=== PATIENT | male | born 1945 | race Caucasian/White ===

== ENCOUNTER 2018-07-19 08:54 | Outpatient (REF) | payer MEDICARE, BC, SELFPAY ==
[2018-07-19 20:19] LABS: HCT 40.3 % (40.0-50.0); HGB 13.4 g/dL (13.5-17.5); Mean Corp. HGB Concentration 33.3 g/dL (32.0-36.0); Mean Corpuscular Volume 90.4 fL (80-95); Mean Platelet Volume 11.3 fL (8.0-11.0); Platelet Count 200 x1000/uL (130-400); RBC 4.46 m/cumm (4.50-6.00); RBC Distribution Width 12.5 % (11.8-14.1); White Blood Cell Count 8.11 k/cumm (4.4-10.8)
== END 2018-07-19 09:14 ==
LOC: NCHCN 08:54
PROVIDERS: PCP Specialist/Technologist Athletic Trainer; Visit Provider Specialist/Technologist Athletic Trainer
DX: D50.9 Iron deficiency anemia, unspecified (principal)
CPT/HCPCS: 85027

== ENCOUNTER → 2018-08-17 09:04 | Outpatient (BNVA) | payer MEDICARE, BC, SELFPAY | PROVIDERS: PCP Specialist/Technologist Athletic Trainer; Visit Provider Psychiatry & Neurology Neurology | DX: G20 Parkinson's disease (principal); G90.3 Multi-system degeneration of the autonomic nervous system; G31.84 Mild cognitive impairment of uncertain or unknown etiology | CPT/HCPCS: 99214 ==

== ENCOUNTER 2018-08-30 11:30 | Outpatient (REF) | payer MEDICARE, BC, SELFPAY ==
[2018-08-30 20:28] LABS: BUN 16 mg/dL (7-18); Calcium 8.9 mg/dL (8.5-10.1); Chloride 100 mmol/L (98-107); Glucose 126 mg/dL (70-100); Potassium 3.9 mmol/L (3.5-5.1); Sodium 135 mmol/L (136-145)
[2018-08-30 20:32] LABS: HCT 38.9 % (40.0-50.0); Mean Corp. HGB Concentration 33.4 g/dL (32.0-36.0); Mean Corpuscular Volume 89.8 fL (80-95); Platelet Count 199 x1000/uL (130-400); RBC 4.33 m/cumm (4.50-6.00); RBC Distribution Width 12.5 % (11.8-14.1); White Blood Cell Count 7.34 k/cumm (4.4-10.8)
== END 2018-08-30 11:50 ==
LOC: NCHCN 11:30
PROVIDERS: PCP Specialist/Technologist Athletic Trainer; Visit Provider Specialist/Technologist Athletic Trainer
DX: D50.9 Iron deficiency anemia, unspecified (principal); Z02.89 Encounter for other administrative examinations
CPT/HCPCS: 80048; 85027

== ENCOUNTER → 2018-09-25 10:06 | Outpatient (BNVA) | payer MEDICARE, BC, SELFPAY | PROVIDERS: PCP Specialist/Technologist Athletic Trainer; Visit Provider Psychiatry & Neurology Neurology | DX: G20 Parkinson's disease (principal); G90.3 Multi-system degeneration of the autonomic nervous system; G31.84 Mild cognitive impairment of uncertain or unknown etiology; M79.604 Pain in right leg; M79.605 Pain in left leg; H53.8 Other visual disturbances | CPT/HCPCS: 99214 ==

== ENCOUNTER → 2018-12-20 08:50 | Outpatient (BNVA) | payer MEDICARE, BC, SELFPAY | PROVIDERS: PCP Specialist/Technologist Athletic Trainer; Visit Provider Psychiatry & Neurology Neurology | DX: G20 Parkinson's disease (principal); G90.3 Multi-system degeneration of the autonomic nervous system; G31.84 Mild cognitive impairment of uncertain or unknown etiology; K59.01 Slow transit constipation | CPT/HCPCS: 99214 ==

== ENCOUNTER 2019-02-06 00:56 | Outpatient (CLI) | payer MEDICARE, BC, SELFPAY ==
--- NOTE | 2019-02-06 09:03 | DI.RAD_ITS ---
SYMPTOM/DIAGNOSIS: LOW BACK AND LT HIP PAIN, M54.5,M25.552 LEFT HIP AND PELVIS: In the left hip, there is mild joint space narrowing and acetabular spurring. The sacroiliac joints and symphysis pubis are intact. The bones are normally mineralized. Vascular calcifications are present. There are surgical clips seen inferior to the pelvis, likely reflecting prior vasectomy. IMPRESSION: Mild degenerative changes of the left hip. LUMBAR SPINE: AP, lateral and bilateral oblique views. There are five lumbar type vertebral bodies. No spondylolysis or spondylolisthesis is seen. There is mild disc space narrowing at L 4-5 and L 5-S 1. There are endplate osteophytes throughout the lumbar spine. Degenerative changes of the facets are seen at L 3-4 through L 5-S 1. No acute fractures or subluxations are present. Extensive arterial calcification is noted. IMPRESSION: Moderate degenerative changes in the lumbar spine.
== END 2019-02-06 01:16 ==
PROVIDERS: PCP Specialist/Technologist Athletic Trainer; Visit Provider Specialist/Technologist Athletic Trainer
DX: M54.2 Cervicalgia (principal); M25.552 Pain in left hip; M16.12 Unilateral primary osteoarthritis, left hip; M47.817 Spondylosis without myelopathy or radiculopathy, lumbosacral region; M51.37 Other intervertebral disc degeneration, lumbosacral region
CPT/HCPCS: 72110; 73502

== ENCOUNTER 2019-02-13 00:31 | Outpatient (CLI) | payer MEDICARE, BC, SELFPAY ==
--- NOTE | 2019-02-13 09:30 | DI.MRI_ITS ---
SYMPTOM/DIAGNOSIS: LOW BACK PAIN M54.5 LUMBAR MRI: T2 sagittal, T1 sagittal, T1-STIR sagittal, T-1 axial, T2 axial and T2 axial SMA pulsed sequences were performed and most pronounced at L5-S1. Also note is made of a protrusion in to the superior end plate of T-11. At L1-2 the signal is identified. A small bulge is noted. There are mild degenerative changes involving the facet joints and no evidence of spinal stenosis. At L2-3 diminished signal is demonstrated. A disc bulge is identified and there are moderate facet joint degenerative changes and no evidence of spinal stenosis. At L3-4 again noted is diminished signal and mild disc space narrowing and a small disc bulge. Facet joint DJD is evident. There is nothing to suggest significant spinal stenosis. At L4-5 diminished signal is identified. A small disc bulge is evident and there are severe degenerative changes involving the facet joints with a moderately severe bilateral foraminal stenosis most advanced on the left side. At L5-S1 diminished signal is noted in a narrowed disc. Facet joint DJD is of moderate severity. There is a very small disc bulge and evidence of moderate bilateral foraminal stenosis. No intrinsic abnormality involving the lower dorsal cord conus or finale terminale is seen. SUMMARY: There is evidence of degenerative disease and DJD with multi-level spinal stenosis. Please see the above discussion.
== END 2019-02-13 00:51 ==
PROVIDERS: PCP Specialist/Technologist Athletic Trainer; Visit Provider Specialist/Technologist Athletic Trainer
DX: M54.5 Low back pain (principal); M47.817 Spondylosis without myelopathy or radiculopathy, lumbosacral region; M48.07 Spinal stenosis, lumbosacral region; M51.37 Other intervertebral disc degeneration, lumbosacral region
CPT/HCPCS: 72148

== ENCOUNTER → 2019-03-19 11:08 | Outpatient (BNVA) | payer MEDICARE, BC, SELFPAY | PROVIDERS: PCP Specialist/Technologist Athletic Trainer; Visit Provider Psychiatry & Neurology Neurology | DX: G20 Parkinson's disease (principal); G90.3 Multi-system degeneration of the autonomic nervous system; G31.84 Mild cognitive impairment of uncertain or unknown etiology; K59.01 Slow transit constipation; I95.9 Hypotension, unspecified | CPT/HCPCS: 99214 ==

== ENCOUNTER 2019-03-31 11:08 | Emergency (ER) | payer MEDICARE, BC, SELFPAY ==
[2019-03-31 11:15] VITALS: BP 127/76; PULSE 66; RESP 16; TEMP 36.9; O2SAT 99
[2019-03-31 11:53] LABS: Bilirubin Small (Negative); Blood Negative (Negative); Clarity Clear; Glucose Negative (Negative); Ketones 15 mg/dL (Negative); Leukocyte Esterase Negative (Negative); Nitrite Negative (Negative); Specific Gravity >= 1.030 (1.005-1.025); Urobilinogen 0.2 EU/dL (Up TO 0.2); pH 5.5 (5-8)
[2019-03-31 12:02] LABS: WBC 0-2 HPF (0-5)
[2019-03-31 12:03] LABS: Bacteria Negative HPF (Negative); C & S Indicated? No; Casts Negative LPF (Negative); Crystals Negative HPF (Negative); Epithelial Cells Rare HPF (Negative); Mucus Heavy (Negative); RBC 0-2 (0-2)
--- NOTE | 2019-03-31 12:06 | DI.CT_ITS ---
SYMPTOM/DIAGNOSIS: LLQ AND GROIN ABD PAIN ABDOMEN AND PELVIC CT: CT examination of the abdomen and pelvis was performed with a bolus infusion of 100 cc's of Omnipaque 350. Images obtained through the lung bases are unremarkable. Liver, spleen and pancreas appear normal. No biliary dilatation or gallbladder abnormality by CT criteria. No significant abdominal wall hernia is seen apart from small fat containing left inguinal hernia which may exhibit a previous hernia repair plug. Abdominal aorta is of normal diameter and no major vascular abnormality is seen. Appendix appears normal. No evidence of diverticulitis or bowel obstruction. Adrenals are unremarkable bilaterally. There is a presumed small right renal cyst. There is prominent right extrarenal pelvis. There is question of mild dilatation of the collecting system on the left. The possibility of a UPJ obstruction not excluded. No urinary tract calcification identified. CONCLUSION: Question low grade obstruction left renal collecting system, consider UPJ obstruction of a non calculus origin, stricture versus tumor. Correlation with CT urogram recommended.
[2019-03-31] MEDS: MORPHine 10 MG/ML VIAL 2 MG IVP (12:20)
[2019-03-31 12:29] LABS: Lactate 0.9 mmol/L (0.6-1.4)
[2019-03-31 12:36] LABS: Abs Immature Grans 0.02 k/cumm (0.0-0.09); Absolute Basophil Count 0.01 k/cumm (0.0-0.2); Absolute Eosinophil Count 0.07 k/cumm (0.0-0.7); Absolute Lymphocyte Count 1.57 k/cumm (1.2-3.4); Absolute Monocyte Count 0.79 k/cumm (0.11-0.7); Absolute Neutrophil Count 6.36 k/cumm (1.2-6.7); Basophils % 0.1; Eosinophils % 0.8; HCT 35.9 % (40.0-50.0); HGB 12.4 g/dL (13.5-17.5); Immature Grans % 0.2; Lymphocytes % 17.8; Mean Corp. HGB Concentration 34.5 g/dL (32.0-36.0); Mean Corpuscular Hemoglobin 31.1 pg (27.0-33.0); Mean Platelet Volume 10.1 fL (8.0-11.0); Neutrophils % 72.1; Platelet Count 206 x1000/uL (130-400); RBC 3.99 m/cumm (4.50-6.00); RBC Distribution Width 12.7 % (11.8-14.1); White Blood Cell Count 8.82 k/cumm (4.4-10.8)
[2019-03-31 12:44] LABS: ALT 15 U/L (12-78); AST 15 U/L (15-37); Albumin 3.6 g/dL (3.4-5.0); Alkaline Phosphatase 91 U/L (46-116); Anion Gap 10.7 mmol/L (3-11); BUN 17 mg/dL (7-18); Bilirubin, Total 0.4 mg/dL (0.2-1.0); CO2 26.3 mmol/L (21.0-32.0); Calcium 8.5 mg/dL (8.5-10.1); Chloride 101 mmol/L (98-107); Glucose 97 mg/dL (70-100); Potassium 3.9 mmol/L (3.5-5.1); Sodium 138 mmol/L (136-145); Total Protein 6.8 g/dL (6.4-8.2)
[2019-03-31] MEDS: Omnipaque 350 MG/ML 100 ML BTL IJ (13:38)
[2019-03-31] MEDS: Omnipaque 350 MG/ML 50 ML BTL PO (13:39)
[2019-03-31] MEDS: Breeza Beverage 473 ML BTL PO ×2 (13:40→13:41)
--- NOTE | 2019-03-31 14:12 | DI.VRAD_ITS ---
EXAM: CT Abdomen and Pelvis With Contrast EXAM DATE/TIME: 03/31/2019 12:08 PM CLINICAL HISTORY: 73 years old, male; Signs and symptoms; Other: Abdominal pain, llq, groin; Prior surgery; Surgery date: 6+ months TECHNIQUE: Imaging protocol: Axial computed tomography images of the abdomen and pelvis with intravenous contrast. Coronal and sagittal reformatted images were created and reviewed. Radiation optimization: All CT scans at this facility use at least one of these dose optimization techniques: automated exposure control; mA and/or kV adjustment per patient size (includes targeted exams where dose is matched to clinical indication); or iterative reconstruction. Contrast material: OMNIPAQUE 350; Contrast volume: 100 ml; Contrast route: IV; COMPARISON: FINDINGS: Dilatation of the left intrarenal collecting system and to lesser extent the left renal pelvis without a specific obstructing process identified. This may be related to a prior obstructive process or could represent recent stone passage. No stone is noted within the urinary bladder. No definite renal stones are seen. Right extrarenal pelvis. Moderate amount of fecal material within the colon suggesting constipation. Small left inguinal hernia containing fat with possibly some slight fatty stranding. No bowel extends to the hernia defect and there is no evidence of bowel obstruction. No significant free fluid. No other focal inflammatory process. IMPRESSION: 1. Dilatation of the left intrarenal collecting system and renal pelvis without a current obstructing process the above. 2. Constipation. 3. Left inguinal hernia as described. Dictated and Authenticated by: Brian Velarde MD. Ordering:ОЛЬГА Gregorio MD
--- NOTE | 2019-03-31 15:24 | ED.GENADUL_ITS ---
Discharge Plan Disposition Patient Disposition: HOME Condition: Stable Discharge Details Chief Complaint: Abd Prob Clinical Impression: Hernia, inguinal, left, Sciatica Primary Care Provider: Margaret Jorge ED Provider: Jg Walker Home Meds and New Rx's Prescriptions: Continued entacapone 200 mg tablet 200 mg PO QID RF: 0 carbidopa-levodopa [Sinemet] 25-100 mg tablet 1 tab PO .4x/day Qty: 450 RF: 3 gabapentin 600 mg tablet 600 mg PO TID PRN (Reason: restless leg(s)) Qty: 270 RF: 3 clopidogrel [Plavix] 75 mg tablet 75 mg PO DAILY Qty: 30 RF: 0 docusate sodium 100 mg tablet 100 mg PO BID RF: 0 cilostazol 100 mg Tablet 100 mg PO BID RF: 0 meclizine 25 mg Tablet 25 mg PO BID PRNRF: 0 ondansetron 4 mg Tablet,Disintegrating 4 mg PO Q8H PRNRF: 0 ferrous gluconate 256 mg (28 mg iron) Tablet 256 mg PO DAILY RF: 0 oxycodone 5 mg capsule 5 mg PO TID MDD 5 RF: 0 tamsulosin [Flomax] 0.4 MG capsule 0.4 mg PO DAILY Qty: 90 RF: 4 sertraline [Zoloft] 100 MG tablet 200 mg PO DAILY RF: 0 levothyroxine 50 MCG tablet 75 mcg PO DAILY RF: 0 Vesicare 5 MG tablet 5 mg PO DAILY RF: 0 methylphenidate HCl [Ritalin] 20 MG tablet 20 mg PO BID RF: 0 atorvastatin [Lipitor] 80 MG tablet 80 mg PO QPM RF: 0 nitroglycerin [Nitrostat] 0.4 MG tablet, sublingual 0.4 mg Sublingual PRN PRNRF: 0 ibuprofen [Ibuprofen IB] 200 MG tablet 800 mg PO TID PRNRF: 0 acetaminophen [Acetaminophen Extra Strength] 500 MG tablet 1,000 mg PO TID Qty: 180 RF: 0 aspirin [Aspirin Low-Strength] 81 MG tablet,chewable 81 mg PO DAILY RF: 0 prednisone 10 mg Tablet 10 mg PO DAILY RF: 0 Discharge Instructions Instructions: Sciatica (ED), Inguinal Hernia (ED) Additional Instructions: Return to the emergency department for any new or significant worsening of your symptoms otherwise follow-up with general surgery keep your point with your primary care provider later this week. Referrals: [facility] [Provider Group] (Please call the office on Tuesday or Tuesday for arrangement of follow-up appointment) Margaret Jorge [Primary Care Provider] - (Keep your appointment as scheduled) Discharge Data Discharge Date/Time-TO BE ENTERED AT DEPARTURE: 03/31/19 15:40 Medical Decision Making Patient presenting to the emergency department for chief complaint of left inguinal mass, sciatica with radiation down left leg, constipation. Patient states that the sciatica and the constipation have been going on for a while but today he has noted a mass in his left groin. Physical exam shows palpable left inguinal canal mass that is not easily reducible, hypoactive bowel sounds otherwise no worrisome exam findings. Plan to do labs and CT imaging to rule out incarcerated hernia. Otherwise patient is stable with normal vital signs, no tachycardia, afebrile, nontoxic in appearance per CT imaging showing fat hernia no bowel involved and no bowel obstruction, constipation is noted, dilation of left internal collecting system within the renal pelvis but no obstruction noted. no obstruction labs show anemia which is patient's baseline, nondiagnostic non-worrisome CMP and lactate, urinalysis showing possible signs of dehydration otherwise again nondiagnostic. Attempted to reduce hernia but was unable to. Patient placed on general surgery follow-up list as he states that this is his major concern today. Given sciatica and constipation which are at patient's baseline he was encouraged to continue his normally prescribed medications and follow-up with his primary care provider or return for any new or worsening symptoms. After discussion of diagnosis and plan of care patient and family have no further needs, questions, or concerns and states clear understanding to return to the emergency department for any worsening symptoms. HPI General Mode of arrival: ambulatory . Date/Time Provider Initiated Documentation: 03/31/19 11:17 . Limitations to Documentation: no limitations . Information obtained by: patient and RN notes reviewed . History of Present Illness 73 year old M presents to the emergency department with the chief complaint of left groin pain, mass, described as moderate and similar to prior episodes, with intensity rated at 9. Quality is described as sharp, and is localized to the pelvis and left. Patient extremity. Patient started experiencing this day(s) (4) and it has been constant. No relieving factors improve symptom(s), No exacerbating factors reported . Patient did receive the following treatments prior to arrival, none Related Data Home Medications Medication Instructions Recorded Confirmed tamsulosin [Flomax] 0.4 mg PO DAILY #90 tab-cap 08/01/13 03/31/19 atorvastatin [Lipitor] 80 mg PO QPM 11/23/13 03/31/19 nitroglycerin [Nitrostat] 0.4 mg SUBLINGUAL PRN PRN 11/23/13 03/31/19 levothyroxine 75 mcg PO DAILY tab-cap 10/28/14 03/31/19 sertraline [Zoloft] 200 mg PO DAILY tab-cap 10/28/14 03/31/19 Vesicare 5 mg PO DAILY tab-cap 01/05/17 03/31/19 acetaminophen [Acetaminophen Extra 1,000 mg PO TID #180 tab 03/31/17 03/31/19 Strength] ibuprofen [Ibuprofen IB] 800 mg PO TID PRN 04/30/17 03/21/19 aspirin [Aspirin Low-Strength] 81 mg PO DAILY 06/28/17 03/31/19 methylphenidate HCl [Ritalin] 20 mg PO BID tab-cap 11/15/17 03/31/19 carbidopa 25 mg-levodopa 100 mg 1 tab PO .4x/day #450 tab-cap 09/25/18 03/31/19 tablet entacapone 200 mg tablet 200 mg PO QID 09/25/18 03/31/19 cilostazol 100 mg PO BID 03/19/19 03/31/19 clopidogrel 75 mg tablet 75 mg PO DAILY #30 tab 03/19/19 03/31/19 docusate sodium 100 mg PO BID 03/19/19 03/31/19 ferrous gluconate 256 mg PO DAILY 03/19/19 03/31/19 gabapentin 600 mg tablet 600 mg PO TID PRN #270 tab-cap 03/19/19 03/31/19 meclizine 25 mg PO BID PRN 03/19/19 03/31/19 ondansetron 4 mg PO Q8H PRN 03/19/19 03/31/19 oxycodone 5 mg PO TID MDD 5 03/19/19 03/31/19 prednisone 10 mg PO DAILY 03/31/19 03/31/19 Previous Rx's Medication Instructions Recorded acetaminophen [Acetaminophen Extra 1,000 mg PO TID #180 tab 03/31/17 Strength] carbidopa 25 mg-levodopa 100 mg 1 tab PO .4x/day #450 tab-cap 09/25/18 tablet clopidogrel 75 mg tablet 75 mg PO DAILY #30 tab 03/19/19 gabapentin 600 mg tablet 600 mg PO TID PRN #270 tab-cap 03/19/19 Allergies Allergy/AdvReac Type Severity Reaction Status Date / Time No Known Allergies Allergy Unverified 03/31/19 11:36 General Stated Complaint: Abd Prob MARTIN: 3 Review of Systems Constitutional Denies chills, Denies fever(s) and Reports poor appetite Cardiovascular Denies chest pain and Denies dyspnea Respiratory Denies cough and Denies dyspnea Gastrointestinal Reports as per HPI, Reports abdominal pain, Denies melena, Denies change in bowel habits, Reports constipation, Denies diarrhea, Denies nausea and Denies vomiting Genitourinary Denies hematuria and Denies difficulty urinating Musculoskeletal Reports back pain and Reports radiating pain into limb Integumentary/Breasts Denies rash [facility] Medical History Restless leg syndrome (Acute 08/08/17) Parkinson disease (Acute 03/10/16) Orthostatic hypotension due to Parkinson's disease (Acute 02/09/18) Mild cognitive impairment (Acute 05/19/16) Lumbosacral radiculopathy (Acute 11/11/14) Constipation due to slow transit (Acute 03/10/16) Atrophy of right hand muscles (Acute 03/10/16) Arthralgia of left acromioclavicular joint (Acute 02/02/17) Blood glucose elevated (Acute) History of ST elevation myocardial infarction (STEMI) (Acute) Left hip pain (Acute) Trochanteric bursitis of left hip (Acute) Low back pain (Chronic) Constipation (Resolved) Dizziness (Resolved) Parkinsons disease (Resolved) ADD (attention deficit disorder) Anxiety BPH (benign prostatic hyperplasia) CAD (coronary artery disease) Depression Hyperlipidemia Hypothyroidism Inguinal hernia Insomnia Iron deficiency anemia [place] (myocardial infarction) Nausea Urinary retention Vertigo Surgical History Incomplete tear of left rotator cuff (Acute 02/02/17) Cardiac cath Colonoscopy - IV Sedation (07/27/16) LAURENT to RCA x 3 Hernia Repair, Incisional (09/28/16) Repair of inguinal hernia Repair of umbilical hernia medial facetectomy L4-5 Family History Mother Heart disease Brother Heart disease Other Alcohol abuse Social History Smoking/Tobacco Use Status: Former Tobacco Use Alcohol Intake: never Drug use: Never Substance use type: does not use Household members: spouse Number of Children: 2 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, 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 What is your relationship status?: Panel score (0-1 are the most socially isolated patients): 1 What type of physical activity do you participate in: walking and additional Details: WORKS ON THE [employer] and yard work Do you feel safe in your relationship?: Yes Exam Const General: cooperative Orientation: alert, awake and oriented x3 Resp Effort & Inspection: normal respiratory effort and able to speak in complete sentences Auscultation: clear to auscultation bilaterally Cardio Rate: regular rate Rhythm: regular rhythm Heart Sounds: S1 normal and S2 normal GI Palpation: soft, no hepatosplenomegaly, not firm, no guarding, mass (left inguinal canal ), no pulsatile masses, not rigid, no splenomegaly and tender in the LLQ Auscultation: hypoactive bowel sounds Back/Spine/Pelvis Back: no CVA tenderness Thoracic/Lumbar Spine: paraspinal tenderness (left lumbar), No thoracic spinal tenderness, lumbar spinal tenderness and straight leg raise positive (left ) Pelvis: no pain with anterior-posterior compression and sciatic notch tenderness on the left Neuro General: alert, awake, oriented x3, gait normal and moves all extremities Course Vital Signs Temperature 36.9 C 03/31/19 11:15 Pulse 66 03/31/19 11:15 Respiratory Rate 16 03/31/19 11:15 Blood Pressure 127/76 03/31/19 11:15 Pulse Oximetry 99 03/31/19 11:15 Temperature 36.9 C 03/31/19 11:15 Temperature Source Skin 03/31/19 11:15 Pulse 66 03/31/19 11:15 Respiratory Rate 16 03/31/19 11:15 Respiratory Effort Non-Labored 03/31/19 11:15 Blood Pressure 127/76 03/31/19 11:15 Blood Pressure Position Sitting 03/31/19 11:15 Pulse Oximetry 99 03/31/19 11:15 Oxygen Delivery Method Room Air 03/31/19 11:15 Oxygen Flow Rate 0 03/31/19 11:15 Pain Level 0 03/31/19 13:05 Lab/Test Results Lab/Test Results: Laboratory Tests Range/Units 03/31/19 03/31/19 03/31/19 11:30 12:20 12:20 WBC (4.4-10.8) k/cumm RBC (4.50-6.00) m/cumm Hgb (13.5-17.5) g/dL Hct (40.0-50.0) % MCV (80-95) fL MCH (27.0-33.0) pg MCHC (32.0-36.0) g/dL RDW (11.8-14.1) % Plt Count (130-400) x1000/uL MPV (8.0-11.0) fL Immature Gran % Neutrophils % Lymphocytes % Monocytes % Eosinophils % Basophils % Absolute Neutrophils (1.2-6.7) k/cumm Absolute Lymphocytes (1.2-3.4) k/cumm Absolute Monocytes (0.11-0.7) k/cumm Absolute Eosinophils (0.0-0.7) k/cumm Absolute Basophils (0.0-0.2) k/cumm Sodium (136-145) mmol/L 138 Potassium (3.5-5.1) mmol/L 3.9 Chloride (98-107) mmol/L 101 Carbon Dioxide (21.0-32.0) mmol/L 26.3 Anion Gap (3-11) mmol/L 10.7 BUN (7-18) mg/dL 17 Creatinine (0.70-1.30) mg/dL 0.90 Estimated GFR/1.73 m2 (mL/min/1.73m2) >= 60.00 Glucose (70-100) mg/dL 97 Lactate (0.6-1.4) mmol/L 0.9 Calcium (8.5-10.1) mg/dL 8.5 Total Bilirubin (0.2-1.0) mg/dL 0.4 AST (15-37) U/L 15 ALT (12-78) U/L 15 Alkaline Phosphatase (46-116) U/L 91 Total Protein (6.4-8.2) g/dL 6.8 Albumin (3.4-5.0) g/dL 3.6 Urine Color (Yellow) [place] Urine Clarity Clear Urine pH (5-8) 5.5 Ur Specific [place] (1.005-1.025) >= 1.030 H Urine Protein (Negative) mg/dL Trace H Urine Ketones (Negative) mg/dL 15 H Urine Blood (Negative) Negative Urine Nitrite (Negative) Negative Urine Bilirubin (Negative) Small H Urine Urobilinogen (Up TO 0.2) EU/dL 0.2 Ur Leukocyte Esterase (Negative) Negative Urine RBC (0-2) 0-2 Urine WBC (0-5) HPF 0-2 Ur Epithelial Cells (Negative) HPF Rare Urine Crystals (Negative) HPF Negative Urine Bacteria (Negative) HPF Negative Urine Casts (Negative) LPF Negative Urine Mucus (Negative) Heavy Ur Culture Indicated? No Urine Glucose (Negative) mg/dL Negative Range/Units 03/31/19 12:20 WBC (4.4-10.8) k/cumm 8.82 RBC (4.50-6.00) m/cumm 3.99 L Hgb (13.5-17.5) g/dL 12.4 L Hct (40.0-50.0) % 35.9 L MCV (80-95) fL 90.0 MCH (27.0-33.0) pg 31.1 MCHC (32.0-36.0) g/dL 34.5 RDW (11.8-14.1) % 12.7 Plt Count (130-400) x1000/uL 206 MPV (8.0-11.0) fL 10.1 Immature Gran % 0.2 Neutrophils % 72.1 Lymphocytes % 17.8 Monocytes % 9.0 Eosinophils % 0.8 Basophils % 0.1 Absolute Neutrophils (1.2-6.7) k/cumm 6.36 Absolute Lymphocytes (1.2-3.4) k/cumm 1.57 Absolute Monocytes (0.11-0.7) k/cumm 0.79 H Absolute Eosinophils (0.0-0.7) k/cumm 0.07 Absolute Basophils (0.0-0.2) k/cumm 0.01 Sodium (136-145) mmol/L Potassium (3.5-5.1) mmol/L Chloride (98-107) mmol/L Carbon Dioxide (21.0-32.0) mmol/L Anion Gap (3-11) mmol/L BUN (7-18) mg/dL Creatinine (0.70-1.30) mg/dL Estimated GFR/1.73 m2 (mL/min/1.73m2) Glucose (70-100) mg/dL Lactate (0.6-1.4) mmol/L Calcium (8.5-10.1) mg/dL Total Bilirubin (0.2-1.0) mg/dL AST (15-37) U/L ALT (12-78) U/L Alkaline Phosphatase (46-116) U/L Total Protein (6.4-8.2) g/dL Albumin (3.4-5.0) g/dL Urine Color (Yellow) Urine Clarity Urine pH (5-8) Ur Specific [place] (1.005-1.025) Urine Protein (Negative) mg/dL Urine Ketones (Negative) mg/dL Urine Blood (Negative) Urine Nitrite (Negative) Urine Bilirubin (Negative) Urine Urobilinogen (Up TO 0.2) EU/dL Ur Leukocyte Esterase (Negative) Urine RBC (0-2) Urine WBC (0-5) HPF Ur Epithelial Cells (Negative) HPF Urine Crystals (Negative) HPF Urine Bacteria (Negative) HPF Urine Casts (Negative) LPF Urine Mucus (Negative) Ur Culture Indicated? Urine Glucose (Negative) mg/dL
[2019-03-31 15:33] VITALS: BP 124/73; PULSE 62; RESP 16; TEMP 37; O2SAT 97
[2019-03-31 15:40] VITALS: BP 124/73; PULSE 62; RESP 16; TEMP 37; O2SAT 97
--- NOTE | 2019-04-03 08:54 | PDOC.ERCMPRO ---
Care Management Progress Note 04/03-Braulio ALMARAZ requested assistance with a general surgery f/u in one week for L inguinal fat hernia/unable to reduce. Referral faxed to [facility] this am.
== END 2019-03-31 15:40 | disposition home or self-care (01) ==
PROVIDERS: Emergency Provider Nurse Practitioner Family; PCP Nurse Practitioner Family
DX: K40.90 Unilateral inguinal hernia, without obstruction or gangrene, not specified as recurrent (principal); M54.32 Sciatica, left side
CPT/HCPCS: 36415; 80053; 96374; 99285; 74177; 81003; 81015; 83605; 85025; 99284; J2270; J3490; Q9967

== ENCOUNTER → 2019-04-06 14:10 | Outpatient (BNVA) | payer MEDICARE, BC, SELFPAY | PROVIDERS: PCP Nurse Practitioner Family; Referring Provider Nurse Practitioner Family; Visit Provider Surgery | DX: K40.91 Unilateral inguinal hernia, without obstruction or gangrene, recurrent (principal); G20 Parkinson's disease | CPT/HCPCS: 99213 ==

== ENCOUNTER 2019-04-27 09:18 | Outpatient (REF) | payer MEDICARE, BC, SELFPAY ==
[2019-04-27 19:33] LABS: Abs Immature Grans 0.04 k/cumm (0.0-0.09); Absolute Basophil Count 0.02 k/cumm (0.0-0.2); Absolute Eosinophil Count 0.08 k/cumm (0.0-0.7); Absolute Lymphocyte Count 0.85 k/cumm (1.2-3.4); Absolute Monocyte Count 0.79 k/cumm (0.11-0.7); Absolute Neutrophil Count 7.82 k/cumm (1.2-6.7); Basophils % 0.2; Eosinophils % 0.8; HCT 39.5 % (40.0-50.0); HGB 13.6 g/dL (13.5-17.5); Immature Grans % 0.4; Lymphocytes % 8.9; Mean Corp. HGB Concentration 34.4 g/dL (32.0-36.0); Monocytes % 8.2; Neutrophils % 81.5; Platelet Count 216 x1000/uL (130-400); RBC 4.39 m/cumm (4.50-6.00); RBC Distribution Width 12.5 % (11.8-14.1)
[2019-04-27 19:55] LABS: ALT 13 U/L (12-78); AST 13 U/L (15-37); Albumin 3.7 g/dL (3.4-5.0); Alkaline Phosphatase 81 U/L (46-116); Anion Gap 9.9 mmol/L (3-11); BUN 13 mg/dL (7-18); Bilirubin, Total 0.5 mg/dL (0.2-1.0); CO2 26.1 mmol/L (21.0-32.0); CREATININE 0.97 mg/dL (0.70-1.30); Calcium 8.8 mg/dL (8.5-10.1); Chloride 100 mmol/L (98-107); Glucose 95 mg/dL (70-100); Potassium 4.5 mmol/L (3.5-5.1); Sodium 136 mmol/L (136-145); TSH (W/Ref FT4) 4.24 uIU/mL (0.358-3.74); Total Protein 6.5 g/dL (6.4-8.2)
[2019-04-27 20:54] LABS: FREE T4 1.14 ng/dL (0.76-1.46)
== END 2019-04-27 09:38 ==
LOC: NCHCN 09:18
PROVIDERS: PCP Nurse Practitioner Family; Visit Provider Specialist/Technologist Athletic Trainer
DX: D50.9 Iron deficiency anemia, unspecified (principal); E03.9 Hypothyroidism, unspecified; Z79.899 Other long term (current) drug therapy; Z01.818 Encounter for other preprocedural examination
CPT/HCPCS: 80053; 83735; 84439; 84443; 85025

== ENCOUNTER 2019-05-09 05:54 | Emergency (ER) | payer MEDICARE, BC, SELFPAY ==
[2019-05-09 05:57] VITALS: BP 182/99; PULSE 102; RESP 24; TEMP 36.6; O2SAT 95
[2019-05-09] MEDS: HYDROmorphone 2 MG/ML VIAL IM (06:13)
[2019-05-09] MEDS: Lidocaine 5% Patch 1 PATCH (06:14)
[2019-05-09] MEDS: Cyclobenzaprine 10 MG TAB PO (06:14)
--- NOTE | 2019-05-09 06:17 | ED.GENADUL_ITS ---
Discharge Plan Disposition Patient Disposition: HOME Condition: Good Discharge Details Chief Complaint: Orthopedic Clinical Impression: Lumbago Primary Care Provider: Margaret Jorge ED Provider: Nav Arellano Home Meds and New Rx's Prescriptions: No Action sennosides [Senna Laxative] 8.6 mg tablet 8.6 mg PO BID PRNRF: 0 entacapone 200 mg tablet 200 mg PO QID RF: 0 carbidopa-levodopa [Sinemet] 25-100 mg tablet 1 tab PO .4x/day Qty: 450 RF: 3 gabapentin 600 mg tablet 600 mg PO TID PRN (Reason: restless leg(s)) Qty: 270 RF: 3 clopidogrel [Plavix] 75 mg tablet 75 mg PO DAILY Qty: 30 RF: 0 docusate sodium 100 mg tablet 100 mg PO BID RF: 0 cilostazol 100 mg Tablet 100 mg PO BID RF: 0 ondansetron 4 mg Tablet,Disintegrating 4 mg PO Q8H PRNRF: 0 ferrous gluconate 256 mg (28 mg iron) Tablet 256 mg PO DAILY RF: 0 oxycodone 5 mg capsule 5 mg PO TID MDD 5 RF: 0 tamsulosin [Flomax] 0.4 MG capsule 0.4 mg PO DAILY Qty: 90 RF: 4 sertraline [Zoloft] 100 MG tablet 200 mg PO DAILY RF: 0 levothyroxine 50 MCG tablet 75 mcg PO DAILY RF: 0 Vesicare 5 MG tablet 5 mg PO DAILY RF: 0 methylphenidate HCl [Ritalin] 20 MG tablet 20 mg PO BID RF: 0 atorvastatin [Lipitor] 80 MG tablet 80 mg PO QPM RF: 0 nitroglycerin [Nitrostat] 0.4 MG tablet, sublingual 0.4 mg Sublingual PRN PRNRF: 0 ibuprofen [Ibuprofen IB] 200 MG tablet 800 mg PO TID PRNRF: 0 hydromorphone 2 mg Tablet 2 mg PO DIRECTED RF: 0 acetaminophen [Acetaminophen Extra Strength] 500 MG tablet 1,000 mg PO TID Qty: 180 RF: 0 aspirin [Aspirin Low-Strength] 81 MG tablet,chewable 81 mg PO DAILY RF: 0 Discharge Instructions Instructions: Low Back Strain (ED) Additional Instructions: At this time your back pain is improved, however it was still require your continued narcotic medication at home to help tide you over until your surgery tomorrow morning. Please take to the hydrocodone every 6 hours as directed, and please take your 5 mg oxycodone as needed every 8 hours for supplementation. If you notice any worsening of your symptoms, or any new symptoms such as vomiting, diarrhea, fever, chills, shortness of breath, chest pain, numbness, numbness or tingling in her groin, bowel or bladder incontinence, weakness, or fainting , please return immediately to the emergency department for reevaluation. Please follow up with your primary care provider as soon as possible for reassessment and reevaluation. As always, it was a pleasure participating in your medical care today. Referrals: Margaret Jorge [Primary Care Provider] - Medical Decision Making This is a 77-year-old male with past medical history of known chronic lower back pain who is scheduled to have a laminectomy informed for laminectomy tomorrow at [facility] by . He has had gradual worsening of his pain over the last few weeks, and because of this he has increased his daily oxycodone and hydrocodone with permission of his primary care provider. Pain is made worse by lying flat. Improved by standing up slightly bending over. Exam demonstrates no reflexive midline tenderness, saddle anesthesia, or historical component of bowel or bladder incontinence. Reflexes are notably intact. No saddle anesthesia. Normal strength in the lower extremities bilaterally. Currently with the patient's symptoms I am concerned more for back muscle spasm. There seems to be no current clinical evidence of acute cord compression, or other significant abnormality in regards to that. Patient has no urinary frequency, no abdominal pain. We will give IM Dilaudid, Lidoderm patch, Flexeril, Toradol and reassess. 7:48 AM After medication the patient is feeling much better. He feels comfortable to go home. Repeat exam continues to demonstrate no signs or symptoms consistent with cauda equina syndrome or cord compression. Will recommend continued use of his hydrocodone and oxycodone's at home. We discussed the importance of close fo llow-up with his neurosurgeon tomorrow at [facility]. I have extensively reviewed the treatment plan and discharge instructions with the patient. I have addressed all patient concerns at this time. The patient was made aware of what symptoms to monitor for that would warrant a return to the emergency department. Discussed the plan with the patient, they demonstrate verbal understanding and agreement with our assessment and plan at this time. HPI General Date/Time Provider Initiated Documentation: 05/09/19 05:55 . HPI Narrative: This is a 73-year-old male with a past medical history of Parkinson's, cardiac disease, notable peripheral vascular disease, and chronic severe back pain at L4-L5 for which she is scheduled to receive surgery tomorrow at [facility] with our neurosurgery group. He has had chronic pain after shoveling snow, and there was concern that he had partially ruptured a disc. He is scheduled to have surgery tomorrow, however over the last week the patient has noted a significant gradual worsening of his back pain. He has been seen by his PCP who has added daily oxycodone with his chronic hydrocodone over the last few days. The patient states that in spite of this the pain has continued to worsen which she describes as a notable achiness in his back of the left. Patient states that the pain is continued and climates tonight, and he felt unable to deal with it anymore and so he came to the ER for pain control. He denies any bowel or bladder incontinence, recent falls or trauma, numbness or tingling in the groin, IV or illicit drug use, or other complaints. The pain is noted as achy and severe, it is in the left lower back, it radiates down all the way to his foot. He denies any focal weakness, but does admit to a burning sensation in his left lower leg. He denies any other modifying factors. The neurosurgeon for whom he is scheduled with his Dr Hinojosa surgeries for laminectomy and foraminotomy scheduled tomorrow.. Related Data Home Medications Medication Instructions Recorded Confirmed tamsulosin [Flomax] 0.4 mg PO DAILY #90 tab-cap 08/01/13 05/09/19 atorvastatin [Lipitor] 80 mg PO QPM 11/23/13 05/09/19 nitroglycerin [Nitrostat] 0.4 mg SUBLINGUAL PRN PRN 11/23/13 04/06/19 levothyroxine 75 mcg PO DAILY tab-cap 10/28/14 05/09/19 sertraline [Zoloft] 200 mg PO DAILY tab-cap 10/28/14 05/09/19 Vesicare 5 mg PO DAILY tab-cap 01/05/17 05/09/19 acetaminophen [Acetaminophen Extra 1,000 mg PO TID #180 tab 03/31/17 05/09/19 Strength] ibuprofen [Ibuprofen IB] 800 mg PO TID PRN 04/30/17 05/09/19 aspirin [Aspirin Low-Strength] 81 mg PO DAILY 06/28/17 05/09/19 methylphenidate HCl [Ritalin] 20 mg PO BID tab-cap 11/15/17 05/09/19 carbidopa 25 mg-levodopa 100 mg 1 tab PO .4x/day #450 tab-cap 09/25/18 05/09/19 tablet entacapone 200 mg tablet 200 mg PO QID 09/25/18 05/09/19 cilostazol 100 mg PO BID 03/19/19 05/09/19 clopidogrel 75 mg tablet 75 mg PO DAILY #30 tab 03/19/19 05/09/19 docusate sodium 100 mg PO BID 03/19/19 05/09/19 ferrous gluconate 256 mg PO DAILY 03/19/19 05/09/19 gabapentin 600 mg tablet 600 mg PO TID PRN #270 tab-cap 03/19/19 05/09/19 ondansetron 4 mg PO Q8H PRN 03/19/19 04/06/19 oxycodone 5 mg PO TID MDD 5 03/19/19 05/09/19 sennosides 8.6 mg tablet 8.6 mg PO BID PRN 04/06/19 05/09/19 hydromorphone 2 mg PO DIRECTED 05/09/19 05/09/19 Previous Rx's Medication Instructions Recorded acetaminophen [Acetaminophen Extra 1,000 mg PO TID #180 tab 03/31/17 Strength] carbidopa 25 mg-levodopa 100 mg 1 tab PO .4x/day #450 tab-cap 09/25/18 tablet clopidogrel 75 mg tablet 75 mg PO DAILY #30 tab 03/19/19 gabapentin 600 mg tablet 600 mg PO TID PRN #270 tab-cap 03/19/19 Allergies Allergy/AdvReac Type Severity Reaction Status Date / Time No Known Allergies Allergy Unverified 05/09/19 06:15 General Stated Complaint: Orthopedic MARTIN: 3 Review of Systems Review of Systems All systems reviewed & are unremarkable except as noted in HPI and below PFSH Social History Smoking/Tobacco Use Status: Former Tobacco Use Alcohol Intake: never Drug use: Never Substance use type: does not use Household members: spouse Number of Children: 2 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 3.ENT: Atraumatic external nose and ears. Moist MM. Neck: Symmetric, trachea midline, No thyromegaly. 4.CVS: +S1/S2, No murmurs or gallops. Peripheral pulses 2+ and equal in all extremities. Brisk capillary refill in all extremities. 5.RESP: Unlabored respiratory effort. Clear to auscultation bilaterally. No wheezes rales or rhonchi 6.GI: Soft, Nontender/Nondistended, No hepatosplenomegaly. No guarding or rebound. Chronic known left-sided inguinal hernia, no evidence of acute herniation, incarceration or strangulation. 7.MSK: Normocephalic/Atraumatic, Extremities w/o deformity or ttp No cyanosis or clubbing, Normal movement of all extremities. No midline tenderness to palpation over the CTLS spine. Normal ROM in flexion, extension, side bend, and rotation. Patient has +5 out of 5 strength in the lower extremities in dorsiflexion and plantarflexion, knee flexion and extension, hip flexion and extension. There is +2 over 2 dorsalis pedis pulses bilaterally. There is normal sensation to the skin with light touch at the foot, knee, and hip. Normal saddle sensation. Good sensation over the deep sural nerve area bilaterally. Rectal exam demonstrates normal rectal tone and normal perirectal sensation. Reflexes are +2 over 4 in the patellar reflex bilaterally for the knees with no evidence of clonus in the knees or feet. No evidence of significant weakness for the lower extremities. Mild to moderate left paraspinal tenderness and left sacral soft tissue tenderness. No erythema or redness. No signs or symptoms suggestive of significant cellulitis. No midline tenderness of the spine. 8.Skin: Warm, Dry. No rashes or lesions. 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 Sensation grossly intact, no focal neurologic deficits. 10.Psych: (AAO) x3. Appropriate mood and affect Course Vital Signs Temperature 36.6 C 05/09/19 05:57 Pulse 102 H 05/09/19 05:57 Respiratory Rate 24 05/09/19 05:57 Blood Pressure 182/99 H 05/09/19 05:57 Pulse Oximetry 95 05/09/19 05:57 Temperature 36.6 C 05/09/19 05:57 Temperature Source Skin 05/09/19 05:57 Pulse 102 H 05/09/19 05:57 Respiratory Rate 24 05/09/19 05:57 Respiratory Effort Non-Labored 05/09/19 06:00 Blood Pressure 182/99 H 05/09/19 05:57 Pulse Oximetry 95 05/09/19 05:57 Oxygen Delivery Method Room Air 05/09/19 05:57 Oxygen Flow Rate 0 05/09/19 05:57 Pain Level 10 05/09/19 05:57
[2019-05-09] MEDS: HYDROmorphone 2 MG/ML VIAL (07:47)
[2019-05-09] MEDS: Ketorolac 15 MG/ML VIAL IVP (08:20)
== END 2019-05-09 08:47 | disposition home or self-care (01) ==
PROVIDERS: Emergency Provider Student in an Organized Health Care Education/Training Program; PCP Nurse Practitioner Family
DX: M54.5 Low back pain (principal); G89.29 Other chronic pain; G20 Parkinson's disease
CPT/HCPCS: 96372; 99284; J1885

== ENCOUNTER → 2019-05-24 13:10 | Outpatient (BNVA) | payer MEDICARE, BC, SELFPAY | PROVIDERS: PCP Nurse Practitioner Family; Visit Provider Psychiatry & Neurology Neurology | DX: G25.81 Restless legs syndrome (principal); G20 Parkinson's disease; G90.3 Multi-system degeneration of the autonomic nervous system; G31.84 Mild cognitive impairment of uncertain or unknown etiology; K59.01 Slow transit constipation; I95.9 Hypotension, unspecified; F41.9 Anxiety disorder, unspecified | CPT/HCPCS: 99214 ==

== ENCOUNTER 2019-05-30 02:36 | Outpatient (CLI) | payer MEDICARE, BC, SELFPAY ==
--- NOTE | 2019-06-19 13:19 | ZIOP_ITS ---
ZIAnne-Marie MONITOR DATE OF DICTATION June 18, [address] 12 days, 21 hours, May 30 - June 12, 2019. Baseline rhythm sinus. Rare single PAC. 11 bursts SVT, longest 13 beat duration, fastest 176 beats per minute. No atrial fibrillation. Rare single PVC. Rare couplet. Rare triplet. No VT. Three episodes 2:1 AV block identified. Unclear if this is Wenckebach block versus type 2 second-degr ee block. No significant pauses. 9 symptomatic episodes. Nausea, blurred vision, lightheadedness, dizziness, anxiety, weak legs, flutt ering, racing, pounding, pain, tingling in neck and arms, all described during sinus rhythm plus/crystal s single PACs. 13 triggered events occurring during sinus rhythm plus/minus PACs, PVCs. Events occurring at heart ra ritesh 57-117 beats per minute. Average heart rate sinus 72 beats per minute, range 49-122 beats per minute. Jeff Mcleod M.D. PEYTON/el T - 06/29/19 T - 06/19/2019
== END 2019-05-30 02:56 ==
PROVIDERS: PCP Nurse Practitioner Family; Visit Provider Physician Assistant Medical
DX: I49.1 Atrial premature depolarization (principal); I47.1 Supraventricular tachycardia; I49.3 Ventricular premature depolarization; I44.2 Atrioventricular block, complete
CPT/HCPCS: 0296T

== ENCOUNTER 2019-06-18 17:59 | Outpatient (CLI) | payer MEDICARE, BC, SELFPAY | END 2019-06-18 18:19 | PROVIDERS: PCP Nurse Practitioner Family; Referring Provider Nurse Practitioner Family; Visit Provider Internal Medicine Interventional Cardiology | DX: I49.1 Atrial premature depolarization (principal); I47.1 Supraventricular tachycardia; I49.3 Ventricular premature depolarization; I44.2 Atrioventricular block, complete | CPT/HCPCS: 0298T ==

== ENCOUNTER → 2019-07-12 13:31 | Outpatient (BNVA) | payer MEDICARE, BC, SELFPAY | PROVIDERS: PCP Nurse Practitioner Family; Visit Provider Psychiatry & Neurology Neurology | DX: G20 Parkinson's disease (principal); G90.3 Multi-system degeneration of the autonomic nervous system; G31.84 Mild cognitive impairment of uncertain or unknown etiology; K59.01 Slow transit constipation; I95.9 Hypotension, unspecified | CPT/HCPCS: 99214 ==

== ENCOUNTER 2019-07-25 11:42 | Outpatient (REF) | payer MEDICARE, BC, SELFPAY ==
[2019-07-25 21:48] LABS: Calculated LDL 85 mg/dL; Cholesterol 153 mg/dL (50-200); Glucose 97 mg/dL (70-100); HDL Cholesterol 55 mg/dL (40-60); Triglyceride 69 mg/dL (30-150)
== END 2019-07-25 12:02 ==
LOC: NCHCN 11:42
PROVIDERS: PCP Nurse Practitioner Family; Visit Provider Nurse Practitioner Family
DX: I25.10 Atherosclerotic heart disease of native coronary artery without angina pectoris (principal); R73.9 Hyperglycemia, unspecified
CPT/HCPCS: 80061; 82947

== ENCOUNTER 2019-08-02 02:15 | Outpatient (CLI) | payer MEDICARE, BC, SELFPAY ==
--- NOTE | 2019-08-02 08:42 | DI.MRI_ITS ---
EXAM: MR BRAIN WO CLINICAL HISTORY: COGNITIVE CHANGES DUE TO MEDICAL DISORDER, R41.89. TECHNIQUE: Multiplanar multisequence MRI was performed. COMPARISON: MRI - BRAIN W/WO CONTRAST from 09/08/2011 FINDINGS: There is moderate generalized cerebral atrophy and there are multiple focal areas of abnormal signal in periventricular white matter sparing the corpus callosum consistent with microvascular ischemic ch anges. No other significant signal abnormality is identified in the brain. The orbital and temporal bone structures appear intact. There is normal flow void in the [id number] vasculature. Diff usion-weighted imaging shows no evidence of acute infarction. Susceptibility weighted imaging shows no evidence of intracranial hemorrhage. IMPRESSION: No evidence of acute process.
== END 2019-08-02 02:35 ==
PROVIDERS: PCP Nurse Practitioner Family; Visit Provider Nurse Practitioner Family
DX: R41.89 Other symptoms and signs involving cognitive functions and awareness (principal); G31.89 Other specified degenerative diseases of nervous system; I67.82 Cerebral ischemia
CPT/HCPCS: 70551

== ENCOUNTER 2019-08-16 16:12 | Outpatient (REF) | payer MEDICARE, BC, SELFPAY ==
[2019-08-16 22:19] LABS: TSH (W/Ref FT4) 2.01 uIU/mL (0.36-3.74)
== END 2019-08-16 16:32 ==
LOC: NCHCN 16:12
PROVIDERS: PCP Nurse Practitioner Family; Visit Provider Nurse Practitioner Family
DX: E03.9 Hypothyroidism, unspecified (principal)
CPT/HCPCS: 84443

== ENCOUNTER 2019-09-25 08:55 | Outpatient (CLI) | payer MEDICARE, BC, SELFPAY | END 2019-09-25 09:15 | PROVIDERS: PCP Nurse Practitioner Family; Visit Provider Internal Medicine Cardiovascular Disease | DX: R00.2 Palpitations (principal); I95.9 Hypotension, unspecified; R42 Dizziness and giddiness; G20 Parkinson's disease | CPT/HCPCS: 99204; 99215; 93005; 93010 ==

== ENCOUNTER 2019-09-28 01:53 | Outpatient (CLI) | payer MEDICARE, BC, SELFPAY ==
--- NOTE | 2019-10-18 08:53 | W.ZIOMONITOR ---
Date of service: 10/18/19 Time of Service: 08:54 ZIO Patch Historic Sites Registrar Note: This is a ZIO Patch ordered for the indication of atrial fibrillation. ?The patient was in normal sinus rhythm for the majority of the recording. ?The patient had 8 episodes of supraventricular tachycardia with the longest lasting 12 beats. ?There were rare isolated supraventricular ectopic beats. ?There were no episodes of ventricular tachycardia and rare ventricular ectopic beats ?There were no episodes of atrial fibrillation, pauses greater than 3 seconds or high degree AV block. ?Patient triggered events were associated with sinus rhythm and sinus tachycardia.
== END 2019-09-28 02:13 ==
PROVIDERS: PCP Nurse Practitioner Family; Visit Provider Internal Medicine Cardiovascular Disease
DX: I48.91 Unspecified atrial fibrillation (principal); I47.1 Supraventricular tachycardia
CPT/HCPCS: 0296T

== ENCOUNTER 2019-10-18 08:53 | Outpatient (CLI) | payer MEDICARE, BC, SELFPAY | END 2019-10-18 09:13 | PROVIDERS: PCP Nurse Practitioner Family; Referring Provider Nurse Practitioner Family; Visit Provider Internal Medicine Cardiovascular Disease | DX: I48.91 Unspecified atrial fibrillation (principal); I47.1 Supraventricular tachycardia | CPT/HCPCS: 0298T ==

== ENCOUNTER → 2019-10-18 13:37 | Outpatient (BNVA) | payer MEDICARE, BC, SELFPAY | PROVIDERS: PCP Nurse Practitioner Family; Referring Provider Nurse Practitioner Family; Visit Provider Psychiatry & Neurology Neurology | DX: G20 Parkinson's disease (principal); G31.84 Mild cognitive impairment of uncertain or unknown etiology; G90.3 Multi-system degeneration of the autonomic nervous system; I25.2 Old myocardial infarction; G25.81 Restless legs syndrome | CPT/HCPCS: 99214 ==

== ENCOUNTER 2019-11-02 09:04 | Outpatient (CLI) | payer MEDICARE, BC, SELFPAY ==
[2019-11-02 11:10] LABS: Ferritin 64 ng/mL (26-388)
== END 2019-11-02 09:24 ==
PROVIDERS: PCP Nurse Practitioner Family; Visit Provider Psychiatry & Neurology Neurology
DX: D50.9 Iron deficiency anemia, unspecified (principal)
CPT/HCPCS: 36415; 82728

== ENCOUNTER 2019-11-18 12:22 | Emergency (ER) | payer MEDICARE, BC, SELFPAY ==
[2019-11-18 12:31] VITALS: BP 107/62; PULSE 86; RESP 18; TEMP 36.7; O2SAT 95
--- NOTE | 2019-11-18 12:44 | W.ED.GENAD ---
Discharge Plan Disposition Patient Disposition: HOME Condition: Stable Discharge Details Chief Complaint: Orthopedic Clinical Impression: Injury of left wrist Primary Care Provider: Margaret Jorge ED Provider: Giacomo Wilson Home Meds and New Rx's Prescriptions: Continued sennosides [Senna Laxative] 8.6 mg tablet 8.6 mg PO BID PRNRF: 0 gabapentin 600 mg tablet 600 mg PO QID Qty: 360 RF: 3 carbidopa-levodopa [Sinemet] 25-100 mg tablet 1 tab PO .4x/day Qty: 450 RF: 3 entacapone 200 mg tablet 200 mg PO QID Qty: 360 RF: 3 clopidogrel [Plavix] 75 mg tablet 75 mg PO DAILY Qty: 30 RF: 0 docusate sodium 100 mg tablet 100 mg PO BID RF: 0 ferrous gluconate 256 mg (28 mg iron) Tablet 256 mg PO DAILY RF: 0 tamsulosin [Flomax] 0.4 MG capsule 0.4 mg PO DAILY Qty: 90 RF: 4 sertraline [Zoloft] 100 MG tablet 200 mg PO DAILY RF: 0 solifenacin [Vesicare] 5 MG tablet 5 mg PO DAILY RF: 0 levothyroxine 50 mcg tablet 88 mcg PO DAILY RF: 0 atorvastatin [Lipitor] 80 MG tablet 80 mg PO QPM RF: 0 nitroglycerin [Nitrostat] 0.4 MG tablet, sublingual 0.4 mg Sublingual PRN PRNRF: 0 ibuprofen [Ibuprofen IB] 200 MG tablet 800 mg PO TID PRNRF: 0 acetaminophen [Acetaminophen Extra Strength] 500 MG tablet 1,000 mg PO TID Qty: 180 RF: 0 aspirin [Aspirin Low-Strength] 81 MG tablet,chewable 81 mg PO DAILY RF: 0 Discharge Instructions Additional Instructions: Please wear wrist splint until seen by orthopedics for recheck. You may be seen by your primary orthopedist Dr. Islas, or if you wish at [facility] orthopedics where the office number is [phone]. You appear to have a small avulsion fracture adjacent to your distal radius, this may be an old finding. Apply ice to area to reduce discomfort. You may remove the splint for bathing. Continue your regular medications. Return for any acute concerns. Medical Decision Making 74-year-old male presents from home with his . His history of Parkinson's disease and some gait instability at baseline. On Tuesday of this week he fell and struck his left wrist and hand on the floor. He did not suffer loss of consciousness. There was no other injury. After lifting wood for the fire at home today, he developed increasing left wrist pain. Patient had felt mildly dizzy and orthostatic vital signs were checked and non-revealing. X-ray reveals avulsion fracture adjacent to the distal radius, but given that the patient has pain in this spot, cannot exclude that this is a new finding. Will place in a cock-up wrist splint and the patient will be seen in orthopedic clinic for recheck. HPI General Mode of arrival: ambulatory. Date/Time Provider Initiated Documentation: 11/18/19 12:23. Limitations to Documentation: no limitations. Information obtained by: patient and family. History of Present Illness 74 year old M presents to the emergency department with the chief complaint of Left wrist pain after fall 5 days ago, described as moderate, Quality is described as dull, and is localized to the left and upper extremity. Patient reports no radiation. Patient started experiencing this hour(s) and it has been constant. No relieving factors improve symptom(s), No exacerbating factors reported . Patient notes no other symptoms. and other (No syncope. No other injury. He is recovering from right hand surgery.). Related Data Home Medications Medication Instructions Recorded Confirmed tamsulosin [Flomax] 0.4 mg PO DAILY #90 tab-cap 08/01/13 10/18/19 atorvastatin [Lipitor] 80 mg PO QPM 11/23/13 10/18/19 nitroglycerin [Nitrostat] 0.4 mg SUBLINGUAL PRN PRN 11/23/13 10/18/19 sertraline [Zoloft] 200 mg PO DAILY tab-cap 10/28/14 10/18/19 solifenacin [Vesicare] 5 mg PO DAILY tab-cap 01/05/17 10/18/19 acetaminophen [Acetaminophen Extra 1,000 mg PO TID #180 tab 03/31/17 10/18/19 Strength] ibuprofen [Ibuprofen IB] 800 mg PO TID PRN 04/30/17 10/18/19 aspirin [Aspirin Low-Strength] 81 mg PO DAILY 06/28/17 10/18/19 clopidogrel 75 mg tablet 75 mg PO DAILY #30 tab 03/19/19 10/18/19 docusate sodium 100 mg PO BID 03/19/19 10/18/19 ferrous gluconate 256 mg PO DAILY 03/19/19 10/18/19 sennosides 8.6 mg tablet 8.6 mg PO BID PRN 04/06/19 10/18/19 levothyroxine 50 mcg tablet 88 mcg PO DAILY tab-cap 07/12/19 10/18/19 carbidopa 25 mg-levodopa 100 mg 1 tab PO .4x/day #450 tab-cap 10/18/19 10/18/19 tablet entacapone 200 mg tablet 200 mg PO QID #360 tab 10/18/19 10/18/19 gabapentin 600 mg tablet 600 mg PO QID #360 tab-cap 10/18/19 10/18/19 Previous Rx's Medication Instructions Recorded acetaminophen [Acetaminophen Extra 1,000 mg PO TID #180 tab 03/31/17 Strength] clopidogrel 75 mg tablet 75 mg PO DAILY #30 tab 03/19/19 carbidopa 25 mg-levodopa 100 mg 1 tab PO .4x/day #450 tab-cap 10/18/19 tablet entacapone 200 mg tablet 200 mg PO QID #360 tab 10/18/19 gabapentin 600 mg tablet 600 mg PO QID #360 tab-cap 10/18/19 Allergies Allergy/AdvReac Type Severity Reaction Status Date / Time No Known Allergies Allergy Unverified 11/18/19 12:36 General Stated Complaint: Orthopedic MARTIN: 4 Review of Systems Narrative: 6 systems reviewed and otherwise negative [facility] Medical History ADD (attention deficit disorder) Anxiety Arthralgia of left acromioclavicular joint (Acute 02/02/17) Atrophy of right hand muscles (Acute 03/10/16) Blood glucose elevated (Acute) BPH (benign prostatic hyperplasia) CAD (coronary artery disease) Constipation due to slow transit (Acute 03/10/16) Depression Dizziness (Resolved) History of ST elevation myocardial infarction (STEMI) (Acute) Hyperlipidemia Hypothyroidism Inguinal hernia left and right Insomnia Iron deficiency anemia Left hip pain (Acute) Low back pain (Chronic) Lumbosacral radiculopathy (Acute 11/11/14) GA (myocardial infarction) 2014 Mild cognitive impairment (Acute 05/19/16) Nausea Orthostatic hypotension due to Parkinson's disease (Acute 02/09/18) Parkinson disease (Acute 03/10/16) Peripheral artery disease (Acute) Restless leg syndrome (Acute 08/08/17) Trochanteric bursitis of left hip (Acute) Urinary retention Vertigo Surgical History Cardiac cath 2013 Colonoscopy - IV Sedation (07/27/16) LAURENT to RCA x 3 2013 Hernia Repair, Incisional (09/28/16) right femoral History of carpal tunnel surgery of left wrist (Acute) Incomplete tear of left rotator cuff (Acute 02/02/17) s/p repair March 2017 medial facetectomy L4-5 01/30/15 Repair of inguinal hernia RIH repair >50 years ago Repair of umbilical hernia S/P bilateral cataract extraction (Acute) S/P lumbar spine operation (Acute) 05/10/19; Dr. 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 Pleasant, well groomed, interactive. HEAD: Normocephalic, atraumatic ENT: Mucous membranes moist, oropharynx unremarkable, External ear exam unremarkable EYES: PERRL, EOMI NECK: Full ROM, no KATTY, no menigismus CHEST/RESP: Nontender, clear to auscultation bilateral, no wheeze/rhonchi/rales CARDIOVASCULAR: RRR, no murmur, rub promise. 2+ Rad pulse bilateral ABDOMEN: Soft, nontender EXT: Left wrist and hand with slight dorsal bruising. Tenderness overlying distal radius. Motor and sensory is intact. Full ROM, no edema, no rash Neuro: Grossly normal neurologic exam, conversant, interactive. Psych: Speech fluent, thoughts congruent, affect normal Course Vital Signs Vital signs: Vital Signs Temperature 36.7 C 11/18/19 12:31 Pulse 86 11/18/19 12:31 Respiratory Rate 18 11/18/19 12:31 Blood Pressure 107/62 11/18/19 12:31 Pulse Oximetry 95 11/18/19 12:31 Temperature 36.7 C 11/18/19 12:31 Temperature Source Skin 11/18/19 12:31 Pulse 86 11/18/19 12:31 Respiratory Rate 18 11/18/19 12:31 Respiratory Effort Non-Labored 11/18/19 12:34 Blood Pressure 107/62 11/18/19 12:31 Blood Pressure Position Sitting 11/18/19 12:31 Pulse Oximetry 95 11/18/19 12:31 Oxygen Delivery Method Room Air 11/18/19 12:31 Oxygen Flow Rate 0 11/18/19 12:31 Pain Level 8 11/18/19 12:31
[2019-11-18 12:58] VITALS: BP 101/63; BP 106/73; BP 129/74; PULSE 74; PULSE 79; PULSE 90
--- NOTE | 2019-11-18 13:10 | DI.RAD_ITS ---
EXAM: XR WRIST LT COMPLETE CLINICAL HISTORY: left wrist pain TECHNIQUE: COMPARISON: No exams were available for comparison FINDINGS: Three views were obtained. There are degenerative changes of the carpus particularly at the greater multangular 1st metacarpal joint. No evidence of acute fracture or dislocation. IMPRESSION:
--- NOTE | 2019-11-18 13:51 | DI.VRAD_ITS ---
PROCEDURE INFORMATION: Exam: XR Left Wrist Exam date and time: 11/18/2019 1:01 PM Age: 74 years old Clinical indication: Other: Left wrist pain TECHNIQUE: Imaging protocol: XR Left wrist. Views: 3 or more views. COMPARISON: No relevant prior studies available. FINDINGS: Bones/joints: Old avulsion fracture adjacent to the distal radius There is no evidence of acute fracture.There is no evidence of malalignment or dislocation.. Degenerative changes in the radiocarpal joint Soft tissues: Normal. IMPRESSION: There is no evidence of acute fracture.There is no evidence of malalignment or dislocation. Dictated and Authenticated by: Funmilayo Gregorio MD. Ordering:JOSE Gooden MD
== END 2019-11-18 14:06 | disposition home or self-care (01) ==
PROVIDERS: Emergency Provider Emergency Medicine; PCP Nurse Practitioner Family
DX: S69.82XA Other specified injuries of left wrist, hand and finger(s), initial encounter (principal); W19.XXXA Unspecified fall, initial encounter; G20 Parkinson's disease
CPT/HCPCS: 29125; 99283; 73110; L3908

== ENCOUNTER 2019-12-11 16:59 | Outpatient (REF) | payer MEDICARE, BC, SELFPAY ==
[2019-12-11 21:30] LABS: Anion Gap 8.8 mmol/L (3-11); BUN 12 mg/dL (7-18); CO2 27.2 mmol/L (21.0-32.0); CREATININE 0.95 mg/dL (0.70-1.30); Calcium 8.4 mg/dL (8.5-10.1); Chloride 108 mmol/L (98-107); Glucose 127 mg/dL (74-106); Potassium 3.9 mmol/L (3.5-5.1); Sodium 144 mmol/L (136-145)
[2019-12-11 21:42] LABS: Abs Immature Grans 0.01 k/cumm (0.0-0.09); Absolute Basophil Count 0.04 k/cumm (0.0-0.2); Absolute Eosinophil Count 0.08 k/cumm (0.0-0.7); Absolute Lymphocyte Count 1.31 k/cumm (1.2-3.4); Absolute Monocyte Count 0.42 k/cumm (0.11-0.7); Absolute Neutrophil Count 3.89 k/cumm (1.2-6.7); Basophils % 0.7; Eosinophils % 1.4; HCT 37.7 % (40.0-50.0); HGB 12.5 g/dL (13.5-17.5); Immature Grans % 0.2 %; Lymphocytes % 22.8; Mean Corp. HGB Concentration 33.2 g/dL (32.0-36.0); Mean Corpuscular Hemoglobin 29.9 pg (27.0-33.0); Mean Corpuscular Volume 90.2 fL (80-95); Mean Platelet Volume 11.1 fL (8.0-11.0); Monocytes % 7.3; Neutrophils % 67.6; Platelet Count 258 x1000/uL (130-400); RBC 4.18 m/cumm (4.50-6.00); RBC Distribution Width 12.8 % (11.8-14.1); White Blood Cell Count 5.75 k/cumm (4.4-10.8)
== END 2019-12-11 17:19 ==
LOC: NCHCN 16:59
PROVIDERS: PCP Nurse Practitioner Family; Visit Provider Nurse Practitioner Family
DX: I25.10 Atherosclerotic heart disease of native coronary artery without angina pectoris (principal)
CPT/HCPCS: 80048; 85025

== ENCOUNTER → 2020-03-05 08:59 | Outpatient (BNVA) | payer MEDICARE, BC, SELFPAY | PROVIDERS: PCP Nurse Practitioner Family; Referring Provider Nurse Practitioner Family; Visit Provider Psychiatry & Neurology Neurology | DX: G20 Parkinson's disease (principal); G90.3 Multi-system degeneration of the autonomic nervous system; G31.84 Mild cognitive impairment of uncertain or unknown etiology; F41.9 Anxiety disorder, unspecified; G25.81 Restless legs syndrome; K59.01 Slow transit constipation | CPT/HCPCS: 99214 ==

== ENCOUNTER 2020-03-25 19:48 | Outpatient (REF) | payer MEDICARE, BC, SELFPAY ==
[2020-03-25 19:43] LABS: HCT 37.2 % (40.0-50.0); HGB 12.6 g/dL (13.5-17.5); Mean Corp. HGB Concentration 33.9 g/dL (32.0-36.0); Mean Corpuscular Hemoglobin 30.8 pg (27.0-33.0); Platelet Count 239 x1000/uL (130-400); RBC 4.09 m/cumm (4.50-6.00); RBC Distribution Width 12.1 % (11.8-14.1); White Blood Cell Count 7.52 k/cumm (4.4-10.8)
[2020-03-27 14:38] LABS: Hemoglobin A1C 5.6 % (3.8-5.6)
== END 2020-03-25 20:08 ==
LOC: NCHCN 19:48
PROVIDERS: PCP Nurse Practitioner Family; Visit Provider Nurse Practitioner Family
DX: D50.9 Iron deficiency anemia, unspecified (principal); R73.9 Hyperglycemia, unspecified
CPT/HCPCS: 85027; 83036

== ENCOUNTER → 2020-04-16 09:55 | Outpatient (BNVA) | payer MEDICARE, BC, SELFPAY | PROVIDERS: PCP Nurse Practitioner Family; Referring Provider Nurse Practitioner Family; Visit Provider Psychiatry & Neurology Neurology | DX: G20 Parkinson's disease (principal); G90.3 Multi-system degeneration of the autonomic nervous system; G31.84 Mild cognitive impairment of uncertain or unknown etiology; F41.9 Anxiety disorder, unspecified; G25.81 Restless legs syndrome; K59.01 Slow transit constipation | CPT/HCPCS: 99214 ==

== ENCOUNTER 2020-05-26 18:03 | Outpatient (REF) | payer MEDICARE, BC, SELFPAY ==
[2020-05-26 20:20] LABS: Ferritin 44 ng/mL (26-388)
[2020-05-26 20:28] LABS: Iron 70 ug/dL (65-175); Total Iron Binding Capacity 320 ug/dL (250-450); Transferrin Sat 22 % (20-55)
== END 2020-05-26 18:23 ==
LOC: NCHCN 18:03
PROVIDERS: PCP Nurse Practitioner Family; Visit Provider Nurse Practitioner Family
DX: D50.9 Iron deficiency anemia, unspecified (principal); G25.81 Restless legs syndrome
CPT/HCPCS: 82728; 83540; 83550

== ENCOUNTER → 2020-06-11 09:40 | Outpatient (BNVA) | payer MEDICARE, BC, SELFPAY | PROVIDERS: PCP Nurse Practitioner Family; Referring Provider Nurse Practitioner Family; Visit Provider Psychiatry & Neurology Neurology | DX: G20 Parkinson's disease (principal); G90.3 Multi-system degeneration of the autonomic nervous system; G31.84 Mild cognitive impairment of uncertain or unknown etiology; F41.9 Anxiety disorder, unspecified; G25.81 Restless legs syndrome; K59.01 Slow transit constipation | CPT/HCPCS: 99214 ==

== ENCOUNTER → 2020-08-21 14:39 | Outpatient (BNVA) | payer MEDICARE, BC, SELFPAY | PROVIDERS: PCP Nurse Practitioner Family; Referring Provider Nurse Practitioner Family; Visit Provider Psychiatry & Neurology Neurology | DX: G20 Parkinson's disease (principal); G25.81 Restless legs syndrome; G90.3 Multi-system degeneration of the autonomic nervous system; G31.84 Mild cognitive impairment of uncertain or unknown etiology; F41.9 Anxiety disorder, unspecified; K59.01 Slow transit constipation | CPT/HCPCS: 99213 ==

== ENCOUNTER 2020-08-25 11:56 | Outpatient (REF) | payer MEDICARE, BC, SELFPAY ==
[2020-08-25 19:18] LABS: Abs Immature Grans 0.02 10^3/uL (0.0-0.06); Absolute Basophil Count 0.03 10^3/uL (0.0-0.2); Absolute Eosinophil Count 0.07 10^3/uL (0.0-0.7); Absolute Lymphocyte Count 0.99 10^3/uL (1.2-3.4); Absolute Monocyte Count 0.41 10^3/uL (0.1-0.8); Basophils % 0.4; HCT 37.1 % (40.0-50.0); HGB 12.4 g/dL (13.5-17.5); Immature Grans % 0.3; Lymphocytes % 13.7; MCH 30.3 pg (27.0-33.0); MCHC 33.4 % (32.0-36.0); MCV 90.7 fL (80-95); MPV 10.8 fL (8.0-11.0); Monocytes % 5.7; Neutrophils % 78.9; Nucleated RBC 0 %; Platelet Count 225 10^3/uL (130-400); RBC 4.09 10^6/uL (4.36-5.78); RDW 11.9 % (11.8-14.1); RDW-SD 39.2 fL; WBC 7.22 10^3/uL (4.4-10.8)
[2020-08-25 19:39] LABS: HDL Cholesterol 54 mg/dL (40-60); LDL CHOLESTEROL 77 mg/dL (<100); TSH (W/Ref FT4) 2.51 uIU/mL (0.36-3.74)
== END 2020-08-25 12:16 ==
LOC: NCHCN 11:56
PROVIDERS: PCP Nurse Practitioner Family; Visit Provider Nurse Practitioner Family
DX: E03.9 Hypothyroidism, unspecified (principal); G20 Parkinson's disease; I25.10 Atherosclerotic heart disease of native coronary artery without angina pectoris
CPT/HCPCS: 83721; 83718; 84443; 85025

== ENCOUNTER 2020-09-03 21:00 | Outpatient (REF) | payer MEDICARE, BC, SELFPAY ==
[2020-09-08 21:31] LABS: Patient Race White; SARS-CoV-2 RNA Undetected (Undetected); SARS-CoV-2 Specimen Source Nasal
== END 2020-09-03 21:20 ==
LOC: NCHCN 21:00
PROVIDERS: PCP Nurse Practitioner Family; Visit Provider Nurse Practitioner Family
DX: Z20.828 Contact with and (suspected) exposure to other viral communicable diseases (principal)
CPT/HCPCS: U0003

== ENCOUNTER → 2020-09-16 09:27 | Outpatient (BNVA) | payer MEDICARE, BC, SELFPAY | PROVIDERS: PCP Nurse Practitioner Family; Referring Provider Nurse Practitioner Family; Visit Provider Surgery | DX: D50.9 Iron deficiency anemia, unspecified (principal); Z95.818 Presence of other cardiac implants and grafts; G20 Parkinson's disease; I25.2 Old myocardial infarction | CPT/HCPCS: 99213 ==

== ENCOUNTER → 2020-11-18 12:56 | Outpatient (BNVA) | payer MEDICARE, BC, SELFPAY | PROVIDERS: PCP Nurse Practitioner Family; Visit Provider Psychiatry & Neurology Neurology | DX: G20 Parkinson's disease (principal); G25.81 Restless legs syndrome; G90.3 Multi-system degeneration of the autonomic nervous system; G31.84 Mild cognitive impairment of uncertain or unknown etiology; F41.9 Anxiety disorder, unspecified; K59.01 Slow transit constipation; D50.9 Iron deficiency anemia, unspecified | CPT/HCPCS: 99215 ==

== ENCOUNTER 2020-11-19 20:01 | Outpatient (REF) | payer MEDICARE, BC, SELFPAY ==
[2020-11-19 21:03] LABS: Ferritin 65 ng/mL (26-388)
[2020-11-20 04:52] LABS: Vitamin D 25 Total 7.5 ng/ml (30-100)
== END 2020-11-19 20:21 ==
LOC: NCHCN 20:01
PROVIDERS: Psychiatry & Neurology Neurology; PCP Nurse Practitioner Family; Visit Provider Nurse Practitioner Family
DX: M25.512 Pain in left shoulder (principal); D50.9 Iron deficiency anemia, unspecified; E55.9 Vitamin D deficiency, unspecified
CPT/HCPCS: 82306; 82728

== ENCOUNTER 2020-11-21 07:54 | Outpatient (CLI) | payer MEDICARE, BC, SELFPAY ==
[2020-11-23 10:24] LABS: COVID-19 RT-PCR Result NEGATIVE (Negative)
== END 2020-11-21 08:14 ==
PROVIDERS: PCP Nurse Practitioner Family; Visit Provider Surgery
DX: Z11.52 Encounter for screening for COVID-19 (principal); Z01.818 Encounter for other preprocedural examination
CPT/HCPCS: U0003

== ENCOUNTER 2020-11-25 02:57 | Outpatient (RCR) | payer MEDICARE, BC, SELFPAY | END 2020-11-30 23:59 | disposition home or self-care (01) | LOC: INF 02:57 | PROVIDERS: PCP Nurse Practitioner Family; Visit Provider Psychiatry & Neurology Neurology ==

== ENCOUNTER 2020-11-26 09:05 | Day surgery (SDC) | payer MEDICARE, BC, SELFPAY ==
--- NOTE | 2020-11-26 07:15 | W.PREOPHP ---
Date of service: 11/26/20 Time of Service: 11:03 Assessment and Plan Assessment and plan (1) Anemia: Status: Chronic Assessment and plan: Mr. Gomes is a pleasant 74 year old with anemia since about 2013. His last colonoscopy was in 2015 which was pretty unremarkable except for one hyperplastic polyp. His past medical history significant for Parkinson's with some mild cognitive impairment. The patient states he has a hard time remembering things. His past medical history is also significant for an AZ in 2013 status post cardiac stents. He has not had any chest pain or shortness of breath since 2013. He did have some palpitations and lightheadedness at the end of 2018 and was seen by cardiology who ordered a Zio patch. Zio patch revealed supraventricular tachycardia. He is also status post stent placements in the left femoral artery and more recently in May 2020 in the right femoral artery. This was for claudication. Since his stents were placed he is able to mow his lawn without any pain. He is on Plavix and aspirin currently. His Vascular surgeon did send a message that it was OK to take him off Plavix prior to his colonoscopy. Risks, benefits and complications have been reviewed. Complications include but are not limited to bleeding, pain, perforation, missed small lesion/polyp, sore throat, aspiration and adverse reaction to the medications. Questions were entertained and answered to their satisfaction and they wished to proceed. No guarantees were given or implied. Proceed with colonoscopy Qualifiers: Anemia type: iron deficiency Iron deficiency anemia type: unspecified iron deficiency Qualified Code(s): D50.9 - Iron deficiency anemia, unspecified History of Present Illness Narrative: Mr. Gomes is a pleasant 74 year old male with a PMHx significant for Parkinsons, AZ in 2013, and peripheral vascular disease s/p stent placements in the left and right FA. Right FA stent placed in May of 2020. He is refered for Anemia. Looking back he has had anemia since 2014. He had a colonoscopy in 2015 which was pretty unremarkable except for a hyperplastic polyp. he denies any melena, hematochezia, abdominal pain, weight loss or changes in bowel habits. iFob was negative this year. He saw Cardiology in July of last year for lightheadedness and palpitations. Zio patch showed SVT, no Afib, no BBB. He has had no chest pain since 2014 when he had an AZ and had stent placed. He has not had to use his Nitro since 2014. Since he had his stents placed in the RLE he has been able to mow his lawn without fatigue or pain. He is on Plavix and aspirin for the stents. Usually for a Cardiac stent the cardiologists would like to wait at least 6 months before taking patient off Plavix for a procedure. I am not sure that that is the same for peripheral stents. I have spoken with his PCP, Margaret Jorge and she will find out for us about timing and whether its safe to get Mr. Gomes off the plavix for 3 days prior to his procedure. Current symptoms: Reports none; Denies fatigue or dyspnea Low iron diet: No Bleeding: no bleeding Amount of bleeding: none Pain quality: no pain Pertinent history: Reports iron deficiency; Denies NSAID usage, alcohol use, diverticulosis, unitentional weight loss and other Previous testing: colonoscopy (2016- one hyperplastic polyp) Associated symptoms: Denies fever(s), chills, constipation, diarrhea, nausea, vomiting, chronic cough or other Changes in condition: unchanged He has had no changes in his health since he was last seen. We did get a message from his Vascular surgeon stating it was safe to take him off Plavix 3 days prior to the procedure. Review of Systems Cardiovascular Cardiovascular: Denies chest pain, Denies chest pain at rest, Denies irregular heart rhythm, Denies dyspnea and Denies dyspnea on exertion Respiratory Respiratory: Denies cough, Denies dyspnea and Denies dyspnea on exertion Gastrointestinal Gastrointestinal: Reports as per HPI Genitourinary Genitourinary: Denies dysuria, Denies urinary incontinence and Denies urinary urgency Endocrine Endocrine: Reports system reviewed and no additional complaints, except as documented Hematologic/Lymphatic Hematologic/Lymphatic: Denies easy bruising and Denies lymphadenopathy [facility] Medical History ADD (attention deficit disorder) Anxiety Arthralgia of left acromioclavicular joint (02/02/17) Atrophy of right hand muscles (03/10/16) Blood glucose elevated BPH (benign prostatic hyperplasia) CAD (coronary artery disease) Claudication bilateral Constipation due to slow transit (03/10/16) Contracture of hand Depression Dizziness History of ST elevation myocardial infarction (STEMI) 2013-F/U with cardiology Dr. Peritz Hyperlipidemia Hypothyroidism Inguinal hernia left and right Insomnia Iron deficiency anemia Left hip pain Low back pain Lumbosacral radiculopathy (11/11/14) AZ (myocardial infarction) 2013 Mild cognitive impairment (05/19/16) Nausea Orthostatic hypotension due to Parkinson's disease (02/09/18) Parkinson disease (03/10/16) Peripheral artery disease Restless leg syndrome (08/08/17) SVT (supraventricular tachycardia) Trochanteric bursitis of left hip Urinary retention Vertigo Surgical History Cardiac cath 2013 Colonoscopy - IV Sedation (07/27/16) LAURENT to RCA x 3 2013 Hernia Repair, Incisional (09/28/16) right femoral x5 History of carpal tunnel surgery of left wrist Incomplete tear of left rotator cuff (02/02/17) s/p repair March 2017 medial facetectomy L4-5 01/30/15 Repair of inguinal hernia RIH repair >50 years ago Repair of umbilical hernia S/P bilateral cataract extraction S/P lumbar spine operation 05/10/19; Dr. 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 Current gender identity: male What is your relationship status?: Panel score (0-1 are the most socially isolated patients): 1 What type of physical activity do you participate in: walking and additional Details: WORKS ON THE [employer] and yard work Do you feel safe at home: Yes Do you feel safe in your relationship?: Yes Additional Social history: Unable to assess [facility] Home Medications and Allergies Home Medications Medication Instructions Recorded Confirmed Type nitroglycerin [Nitrostat] 0.4 mg SUBLINGUAL PRN PRN 11/23/13 11/26/20 History sertraline [Zoloft] 200 mg PO DAILY tab-cap 10/28/14 11/26/20 History solifenacin [Vesicare] 5 mg PO DAILY tab-cap 01/05/17 11/26/20 History acetaminophen [Acetaminophen Extra 1,000 mg PO TID #180 tab 03/31/17 11/26/20 Rx Strength] ibuprofen [Ibuprofen IB] 800 mg PO TID PRN 04/30/17 11/26/20 History aspirin [Aspirin Low-Strength] 81 mg PO DAILY 06/28/17 11/26/20 History docusate sodium 100 mg PO BID 03/19/19 11/26/20 History levothyroxine 50 mcg tablet 88 mcg PO DAILY tab-cap 07/12/19 11/26/20 History loratadine 10 mg tablet 10 mg PO DAILY 03/05/20 11/26/20 History atorvastatin 80 mg tablet 80 mg PO QPM 08/21/20 11/26/20 History carbidopa 25 mg-levodopa 100 mg 1 tab PO .4x/day #450 tab-cap 08/21/20 11/26/20 Rx tablet entacapone 200 mg tablet 200 mg PO QID #360 tab 08/21/20 11/26/20 Rx alfuzosin 10 mg tablet,extended 10 mg PO DAILY 11/18/20 11/26/20 History release 24 hr carbidopa ER 25 mg-levodopa 100 mg 1 tab PO QHS #90 tab 11/18/20 11/26/20 Rx tablet,extended release clopidogrel 75 mg tablet 75 mg PO DAILY 11/18/20 11/26/20 History ferrous gluconate 256 mg (28 mg 256 mg PO DAILY 11/18/20 11/26/20 History iron) tablet gabapentin 600 mg tablet 600 mg PO QID tab 11/18/20 11/26/20 History psyllium husk 0.52 gram capsule 0.52 g PO DAILY 11/18/20 11/26/20 History sennosides 8.6 mg capsule 8.6 mg PO QHS 11/18/20 11/26/20 History Allergies Allergy/AdvReac Type Severity Reaction Status Date / Time finasteride Allergy Severe unknown Verified 11/26/20 09:36 [email or web address] [From Myrbetriq] Allergy Mild unknown Verified 11/26/20 09:36 Exam Const General: healthy appearing and comfortable Resp Effort & Inspection: normal respiratory effort Auscultation: clear to auscultation bilaterally Cardio Rate: regular rate Rhythm: regular rhythm Heart Sounds: no click, no gallops and no murmurs
--- NOTE | 2020-11-26 07:18 | W.PM.DSUDISC ---
Discharge Plan Disposition Patient Disposition: HOME Condition: Good Discharge Details Reason For Visit: Colonoscopy and EGD Attending Provider: Amalia Echols Primary Care Provider: Margaret Jorge Home Meds and New Rx's Prescriptions: New famotidine [Pepcid] 40 mg tablet 40 mg PO QHS Qty: 90 RF: 0 Continued docusate sodium 100 mg tablet 100 mg PO BID RF: 0 loratadine [Claritin] 10 mg tablet 10 mg PO DAILY RF: 0 carbidopa-levodopa [Sinemet] 25-100 mg tablet 1 tab PO .4x/day Qty: 450 RF: 3 entacapone 200 mg tablet 200 mg PO QID Qty: 360 RF: 3 psyllium husk [Metamucil] 0.52 gram capsule 0.52 g PO DAILY RF: 0 senna 8.6 mg capsule 8.6 mg PO QHS RF: 0 alfuzosin 10 mg tablet extended release 24 hr 10 mg PO DAILY RF: 0 clopidogrel [Plavix] 75 mg tablet 75 mg PO DAILY RF: 0 gabapentin 600 mg tablet 600 mg PO QID RF: 0 ferrous gluconate 256 mg (28 mg iron) tablet 256 mg PO DAILY RF: 0 carbidopa-levodopa 25-100 mg tablet extended release 1 tab PO QHS Qty: 90 RF: 3 sertraline [Zoloft] 100 MG tablet 200 mg PO DAILY RF: 0 solifenacin [Vesicare] 5 MG tablet 5 mg PO DAILY RF: 0 levothyroxine 50 mcg tablet 88 mcg PO DAILY RF: 0 nitroglycerin [Nitrostat] 0.4 MG tablet, sublingual 0.4 mg Sublingual PRN PRNRF: 0 atorvastatin [Lipitor] 80 mg tablet 80 mg PO QPM RF: 0 ibuprofen [Ibuprofen IB] 200 MG tablet 800 mg PO TID PRNRF: 0 acetaminophen [Acetaminophen Extra Strength] 500 MG tablet 1,000 mg PO TID Qty: 180 RF: 0 aspirin [Aspirin Low-Strength] 81 MG tablet,chewable 81 mg PO DAILY RF: 0 Discharge Instructions Instructions: Diet for Stomach Ulcers and Gastritis (ED), Gastritis (DC), Esophagitis (DC) Additional Instructions: Findings: moderate inflammation of the stomach and mild inflammation at the distal esophagus A few benign appearing polyps and mild diverticulosis Follow up: follow up with your primary care physician Please call if you develop: fevers >101.5 Nausea or Vomiting Abdominal pain that is not transient DAY SURGERY UNIT POST ENDOSCOPY INSTRUCTIONS 1. Because there will be medication in your system for the next 24 hours, you may feel a little sleepy. Your coordination will be affected. Therefore: a. Do not drive or operate dangerous equipment for 24 hours. b. Do not drink alcohol beverages for 24 hours (not even beer). c. Plan to go home and rest for the day. 2. Generally there are no restrictions on your activity after a day or so has gone by, but you may feel a bit fatigued for a few days. 3 After you arrive home you may have a light meal and return to a normal diet as you can tolerate it without feeling sick to your stomach. 4. After surgery, you may feel pain or discomfort. This should be only transient, but if it persists please contact your doctor. 5. If there are any questions regarding the findings of your procedure, please feel free to contact your doctor. 6. If you are unable to contact your doctor with a problem, contact the hospital at [phone]. 7. Continue all your regular medications unless directed otherwise. I understand the above instructions and have no questions. Signature of Patient or Responsible Adult Escort Date/Time Name of Responsible Adult Escort Signature of Nurse Date/Time Referrals: Margaret Jorge [Primary Care Provider] - Activity:: Activity as Tolerated Diet:: As Tolerated Discharge Orders Discharge Orders: Discharge Order (Routine); Ordered 11/26/20 Ordered By: Amalia Echols DS: Diagnosis Discharge Diagnosis (1) Anemia: Status: Chronic
[2020-11-26 09:27] VITALS: BP 99/65; PULSE 88; RESP 18; TEMP 36; O2SAT 98
[2020-11-26] MEDS: Lactated Ringers 1,000 ML 80 ML IV (09:58)
--- NOTE | 2020-11-26 11:16 | BOWEL_PTH ---
PATIENT: Dayne Gomes LOC: VIRAL U#:[id number] AGE/SX: 75/M ROOM: RE11/26/[address]: Amalia Echols MD : [id number] BED: DIS: 11/26/2020 SPEC #: [id number] RECD: 11/26/20 13:01 STATUS: CIRA RE #: [id number] ORA: 11/26/20 11:[address]: Amalia Echols DEPT: Surgical Specimen RECD BY: Sadaf Nolen ENTERED: 11/26/20 13:03 SP TYPE: Bowel OTHR DR: Margaret Jorge Tissues: 1 - BIOPSY BOWEL 2 - STOMACH BIOPSY 3 - ESOPHAGUS BIOPSY 4 - BIOPSY BOWEL 5 - BIOPSY BOWEL Procedures: GROSS AND MICRO LEVEL 4 Comments: [id number]
--- NOTE | 2020-11-26 12:12 | ENDO_ITS ---
Date of service: 11/26/20 Time of Service: 11:14 Endoscopy Report DATE OF PROCEDURE: 11/26/20 PRE-OP DIAGNOSIS: Anemia POST-OP DIAGNOSIS: same (and inflammation of the duodenum, antrum and GE junction, small colon polyps) PROCEDURE: 1. EGD with biopsies 2. Colonoscopy with polypectomy SURGEON: Amalia Echols ANESTHESIA: other (General/ASA 3/ Jimena Maurisio, [employer]) ESTIMATED BLOOD LOSS: 5 PATHOLOGY: other (duodenum, antrum and Ge junction bx, transverse polyps x2, sigmoid polyp) COMPLICATIONS: None DISPOSITION: same day INDICATIONS: Mr. Gomes is a pleasant 74 year old with anemia since about 2013. His last colonoscopy was in 2015 which was pretty unremarkable except for one hyperplastic polyp. His past medical history significant for Parkinson's with some mild cognitive impairment. The patient states he has a hard time remembering things. His past medical history is also significant for an PR in 2013 status post cardiac stents. He has not had any chest pain or shortness of breath since 2013. He did have some palpitations and lightheadedness at the end of 2018 and was seen by cardiology who ordered a Zio patch. Zio patch revealed supraventricular tachycardia. He is also status post stent placements in the left femoral artery and more recently in May 2020 in the right femoral artery. This was for claudication. Since his stents were placed he is able to mow his lawn without any pain. He is on Plavix and aspirin currently. His Vascular surgeon did send a message that it was OK to take him off Plavix prior to his colonoscopy. Risks, benefits and complications have been reviewed. Complications include but are not limited to bleeding, pain, perforation, missed small lesion/polyp, sore throat, aspiration and adverse reaction to the medications. Questions were entertained and answered to their satisfaction and they wished to proceed. No guarantees were given or implied. PREP: Miralax/Dulcolax PROCEDURE START TIME: 11:14 PROCEDURE END TIME: 12:01 COLONOSCOPY RETRACTION TIME: 13 minutes FINDINGS: mild inflammation of the duodenum, stomach and distal esophagus 3 small polyps PROCEDURE DESCRIPTION: After informed consent was obtained the patient was take to the procedure room and placed in a supine position. Monitors were applied and a time out was done. The patients name, date of , procedure type, allergies to medications and metal in their body was reviewed. A bite block was placed and the patient was sedated. Once sedated and comfortable the gastroscope was advanced through the oropharynx which was grossly normal into the esophagus. The proximal and mid- esophagus were normal. In the distal esophagus there was mild inflammation noted. The scope was advanced into the stomach and through the pylorus into the 3rd portion of the duodenum. The duodenum was noted to be have some mild inflammation in the 1st portion. Biopsies were done. The scope was retracted back into the stomach. There was mild to moderate inflammation in the stomach.There were no ulcers. Biopsies were done to rule out H. pylori. The scope was retroflexed. The cardia and fundus were noted to be normal. There was no hiatal hernia noted. The scope was retracted back into the esophagus and biopsies were done of the GE junction to rule out Savage's. The Z line was regular. The GE junction was at 38 cm. While the patient was still sedated they were placed in a left decubitous po sition. A rectal exam was done. External exam was normal. Internal exam revealed a normal sphincter tone and no palpable masses. The prostate felt smooth but slightly enlarged. The scope was then introduced and retrofelexed. No internal hemorrhoids, masses or polyps were identified on retroflexion. The scope was then advanced to the cecum without difficulty. The ileocecal valve and appendiceal orifice were identified. The prep was adequate. The scope was then slowly retracted over 13 minutes back into the rectum. Polyps were removed with cold forceps in the Transverse colon x2 and sigmoid polyp x1. The scope was removed and the patient was woken up and taken back to Same day surgery in stable condition. The patient tolerated the procedure well and there were no immediate complic ations. Follow up: I have started the patient on Pepcid 40 mg qHS. Follow up colonoscopy will depend on pathology results.
[2020-11-26 12:43] VITALS: BP 165/96; PULSE 78; RESP 20; TEMP 36.3; O2SAT 97
== END 2020-11-26 13:05 | disposition home or self-care (01) ==
LOC: SUR 09:06
PROVIDERS: PCP Nurse Practitioner Family; Visit Provider Surgery
PROC: (CPT 45380; principal; 2020-11-26 10:45)
DX: D64.9 Anemia, unspecified (principal); K31.89 Other diseases of stomach and duodenum; K21.00 Gastro-esophageal reflux disease with esophagitis, without bleeding; D12.3 Benign neoplasm of transverse colon; G20 Parkinson's disease
CPT/HCPCS: 45380; 43239; 88305; NC; J2001

== ENCOUNTER 2020-12-02 01:47 | Outpatient (RCR) | payer MEDICARE, BC, SELFPAY ==
[2020-12-02] MEDS: Normal Saline Flush 10 ML SYR IVP (09:39)
[2020-12-02] MEDS: IRON SUCROSE COMPLEX 200 MG in Normal Saline 100 ML IVPB (10:48)
== END 2020-12-28 23:59 | disposition home or self-care (01) ==
LOC: INF 01:47
PROVIDERS: PCP Nurse Practitioner Family; Visit Provider Psychiatry & Neurology Neurology
DX: D50.9 Iron deficiency anemia, unspecified (principal)
CPT/HCPCS: 96365; J1756

== ENCOUNTER → 2020-12-12 09:19 | Outpatient (BNVA) | payer MEDICARE, BC, SELFPAY | PROVIDERS: PCP Nurse Practitioner Family; Referring Provider Nurse Practitioner Family; Visit Provider Surgery | DX: Z48.815 Encounter for surgical aftercare following surgery on the digestive system (principal); K21.00 Gastro-esophageal reflux disease with esophagitis, without bleeding | CPT/HCPCS: 99212; 99213 ==

== ENCOUNTER 2020-12-22 01:49 | Outpatient (CLI) | payer MEDICARE, BC, SELFPAY ==
--- NOTE | 2020-12-22 08:35 | DI.MRI_ITS ---
EXAM: MR LUMBAR SPINE WO CLINICAL HISTORY: WORSENING BILAT LEG PAIN,M79.606,H/O L4-5 MEDIAL FACETECOMY WITH DISCECTOMY. TECHNIQUE: Multiplanar multisequence MRI of the Lumbar spine was performed. COMPARISON: MR MR lumbar spine wo from 02/13/2019 FINDINGS: Five lumbar vertebrae are presumed. Conus medullaris is at normal level. There is no evidence of conus mass nor subjacent clumping of in trathecal nerve roots to suggest arachnoiditis. The distal thecal sac appears unremarkable.There is no evidence of Tarlov intrasacral cysts nor other significant findings within the sacral canal Bones:There are no fractures nor ominous osseous lesions in the lumbar vertebral bodies and visualize d sacrum. With respect to the individual levels... T12-L1: Unremarkable L1-2: Normal disc height. There is broad symmetrical annular bulging at this level which has increas ed from the prior study and slightly indents the anterior thecal sac. However, there is no prominent central canal stenosis at this level.There is no significant foraminal stenosis. Minimal degenerati ve changes in the facets. L2-3: Moderate decreased disc height. Broad annular bulging appears unchanged from previous. Centra l canal dimensions are lower normal.No significant foraminal stenosis.Mild degenerative changes in th e facet joints. L3-4: Mild decreased disc height. Mild generalized annular bulging noted, slightly more prominent at the level of the exiting left neural foramen where there is mild foraminal stenosis.No significant f oraminal stenosis on the opposite-right side. No discrete disc herniation. Central canal dimensions are lower normal.Minimal facet arthropathy. L4-5: Moderate decreased disc height. Vacuum phenomenon within the disc space. Broad annular bulgin g is noted. There is a superimposed posterolateral right disc protrusion at the level of the right l ateral recess, more so than previous. There is moderate narrowing of the exiting right neural forame n at this level. Mild narrowing of the exiting left neural foramen. Some degenerative change is not ed in the facet joints, more prominent on the left side. L5-S1: Chronic advanced decreased disc height and signal. Anterior osteophytes again noted. There i s mild annular bulging which is symmetrical. There is no central canal stenosis. There is significa nt right-sided vertical foraminal stenosis, this related to the significant disc height loss and the exiting nerve root is impinged between the overlying right pedicle and underlying bulging annulus. T here is only mild foraminal stenosis on the opposite-left side at this level. Soft tissues: Cyst noted in the right kidney. IMPRESSION: 1. Multilevel degenerative disc disease. When compared to the prior MRI scan of January 2019 there is now a posterolateral right disc protrusion at L4-5 level as described above, associated with element of lateral recess and foraminal stenosis. 2. There has also been increase in amount of generalized annular bulging at L1-2 level which has incr eased. Although this slightly indents the anterior thecal sac there is no prominent central nor fora argelia stenosis evident at this level. 3. Asymmetric foraminal stenosis also evident at L5-S1 level with significant right-sided vertical fo raminal stenosis at this level evident and milder foraminal stenosis on the opposite-left side at thi s level. DATA REPOSITORY:
== END 2020-12-22 01:50 ==
PROVIDERS: PCP Nurse Practitioner Family; Visit Provider Nurse Practitioner Family
DX: M79.604 Pain in right leg (principal); M79.605 Pain in left leg; M54.5 Low back pain; M51.37 Other intervertebral disc degeneration, lumbosacral region; Z98.890 Other specified postprocedural states
CPT/HCPCS: 99214; 72148

== ENCOUNTER 2020-12-26 03:08 | Outpatient (CLI) | payer MEDICARE, BC, SELFPAY ==
--- NOTE | 2020-12-26 07:45 | DI.US_ITS ---
APPROVED REPORT EXAM: Comprehensive 2D, Doppler, and color-flow Echocardiogram Patient Location: Out-Patient Event Services Manager: Lyudmila Gtz RDCS (AE) Indications: Dyspnea on Exertion, Hypotensive Other Information Study Quality: Adequate Conclusion Normal left ventricular wall thickness and chamber size. Estimated ejection fraction is 60%. There are no segmental wall motion abnormalities Normal right ventricular size and systolic function Both atria are normal in size Trileaflet aortic valve, without stenosis or regurgitation Mitral leaflets are thickened. Trace mitral regurgitation Structurally normal tricuspid and pulmonic valves. Trace pulmonic regurgitation, trace to mild tricu spid regurgitation. Normal estimated right ventricular systolic pressure Wall motion Left Ventricle The left ventricle is normal size. The left ventricular systolic function is normal. The left ventric ular ejection fraction is within the normal range. There is normal left ventricular wall thickness. T here is normal LV segmental wall motion. There is no ventricular septal defect visualized. LVEF is 60 %. Right Ventricle The right ventricle is normal size. The right ventricular systolic function is normal. The RVSP is 24 .6 mmHg. Atria The left atrium size is normal. The right atrium size is normal. The interatrial septum is intact wit h no evidence for an atrial septal defect. Aortic Valve The aortic valve is normal in structure. Aortic valve is trileaflet. There is no aortic valvular sten osis. No aortic regurgitation is present. Mitral Valve Mitral leaflets are thickened No evidence of mitral valve stenosis. Trace mitral regurgitation. Tricuspid Valve The tricuspid valve is normal in structure. There is no tricuspid valve stenosis. Trace to mild tricu spid regurgitation. Pulmonic Valve The pulmonary valve is normal in structure. There is no pulmonic valvular stenosis. Trace pulmonic re gurgitation. Great Vessels The aortic root is normal in size. The ascending aorta is normal in size. Aortic arch is not well vis ualized. IVC is normal in size and collapses >50% with inspiration. Pericardium There is no pericardial effusion. 2D Dimensions IVSD d PLAX 0.86 cm M: 0.6-1.2 LV Vol A2C d MOD 83.9 mL LVPW d PLAX 0.89 cm M: 0.6 - 1.2 LV Vol A4C d MOD 115.0 mL LVID d PLAX 4.81 cm M: 4.2 - 5.8 LA vol/ BSA A2C s A-L 37.7 mL/m2 LVDs 2.75 cm M: 2.5 - 4.0 LA vol/ BSA A4C s A-L 31.6 mL/m2 Ao Root d 2.87 cm M: 3.1 - 3.7 LA Vol/ BSA Biplane s A-L 34.5 mL/m2 RA Area A4C 17.58 cm2 LA Area A4C s MOD 19.75 cm2 RA Vol/ BSA A4C s A-L 25.3 mL/m2 LA Area A2C s MOD 21.59 cm2 Ao Asc Diam d 3.34 cm M: 2.6 - 3.4 LV EF A4C MOD 60.8 % LV EF Teichholz 72.9 % LV EF A2C MOD 59.2 % LVEF (Arriaga's) 60.47 % M: 52 - 72 LV EF Biplane MOD 60.5 % LV Volume 76.79 mL M: 62 - 150 SV 60.61 mL LV Volume Index 40.84 mL/m2 M: 34 - 74 SV Index 32.26 mL/m2 LV Vol Biplane MOD 100.2 mL FS 41.95 % M-Mode TAPSE 2.27 cm (M/F) >1.7 LV Diastology MV E' medial 0.098 (>0.07 m/s) E/A Ratio 1.1 LV E/e MED 7.15 (<14) MV E Vmax 0.70 (0.4-1.3 m/s) MV E' lateral 0.126 (>0.1 m/s) MV A Vmax 0.65 (0.4-1.3 m/s) LV E/e LAT 5.55 (<14) MV E/A Ratio 1.07 MV E/E' medial 7.18 MV E/E' lateral 5.57 Aortic Valve LVOT Area 3.64 cm2 AoV Area Vmax 2.87 cm2 LVOT Vmax 1.06 m/s AoV Area/ BSA (Vmax) 1.52 cm2/m2 LVOT Mean Tristian. 0.66 m/s SEE Mean Tristian. 2.78 cm2 LVOT Peak Grad 4.5 mmHg SEE Mean Tristian. Index 1.48 cm2/m2 LVOT Mean Grad 2.1 mmHg LVOT VTI 0.226 m LVOT Diam s 2.15 cm AoV Vmax 1.34 m/s Velocity Ratio 0.79 AoV Mean Tristian. 0.86 m/s AoV Peak Grad 7.2 mmHg LVOT SV 82.15 mL AoV Mean Grad 3.5 mmHg AoV VTI 0.248 m AoV Area VTI 3.31 cm2 AoV Area/ BSA (VTI) 1.76 cm/m2 Mitral Valve MV DT 232 (160-240 msec) MV PHT 67 msec MV Area PHT 3.27 cm2 MV VTI 0.356 m MV Area VTI 2.30 (4.0-6.0 cm2) Pulmonary Valve PV Vmax 0.94 (0.5-1.5 m/s) RVOT Peak Gr. 2.23 mmHg PV Peak Grad 3.5 mmHg RVOT Mean Gr. 1.05 mmHg PV Mean Grad 2.2 mmHg RVOT VTI 0.162 m PV VTI 0.212 m RVOT Vmax 0.75 m/s Tricuspid Valve TR Peak Grad 21.5 mmHg TR Vmax 2.32 m/s RA Pressure 3.00 mmHg RVSP (TR) 24.6 mmHg
== END 2020-12-26 03:09 ==
LOC: DI 03:08
PROVIDERS: PCP Nurse Practitioner Family; Visit Provider Internal Medicine Cardiovascular Disease
DX: I95.1 Orthostatic hypotension (principal); R06.09 Other forms of dyspnea
CPT/HCPCS: 93306

== ENCOUNTER 2020-12-30 15:23 | Outpatient (REF) | payer MEDICARE, BC, SELFPAY ==
[2020-12-30 16:06] LABS: Anion Gap 9.1 mmol/L (3-11); BUN 20 mg/dL (7-18); CO2 26.9 mmol/L (21.0-32.0); CREATININE 1.2 mg/dL (0.70-1.30); Calcium 8.8 mg/dL (8.5-10.1); Chloride 103 mmol/L (98-107); Estimated GFR 59.35 (mL/min/1.73m2); Glucose 124 mg/dL (74-106); Potassium 4.3 mmol/L (3.5-5.1); Sodium 139 mmol/L (136-145)
== END 2020-12-30 15:24 | disposition home or self-care (01) ==
LOC: NCHCN 15:23
PROVIDERS: PCP Nurse Practitioner Family; Visit Provider Nurse Practitioner Family
DX: D50.9 Iron deficiency anemia, unspecified (principal)
CPT/HCPCS: 80048

== ENCOUNTER 2021-01-01 01:59 | Outpatient (CLI) | payer MEDICARE, BC, SELFPAY ==
--- NOTE | 2021-01-01 07:45 | DI.NM_ITS ---
APPROVED REPORT Exam: Pharmacologic Patient Location: Out-Patient Room/Bed: Stress Nurse: Tonja Loredo RN Ordering Provider:ARIAN SANON, Contact Number: [phone] BMI: 23.62 Baseline Rhythm: Sinus bradycardia Comment: ST elevation 1mm lead V2 Indications: Palpitations, dyspnea on exertion Medical History Medical History: anxiety, CAD, depression, STEMI, HLD, anemia, HTN, Parkinson's disease, claudication , PAD, SVT Cardiac Medications: atorvastatin, alfuzosin, carbidopa-levodopa, gabapentin, clopidogrel, nitro SL, aspirin Allergies: finasteride Cardiac Risk Factors: HTN, HLD, smoker (former), CVD, STEMI, family hx Previous Cardiac Procedures: PCI to RCA x3 2013 Pretest Chest Pain Characteristics: None Exercise History: Sedentary Physical Disabilities: Leg mobility due to Parkinson's disease Lung Sounds: Clear to auscultation Heart Sounds: Regular Stress Test Details Test: Pharmacologic stress testing performed using 0.4 mg of regadenoson per 5 mL given IV over 10 s econds. Nuclear Acquisition: Rest Tc-99m/Stress Tc-99m 1 day Rest Isotope: Tc-99m Sestamibi. Dose: 11.9 Date: 01/01/2021 Injection Time: 1115 Stress Isotope: Tc-99m Sestamibi. Dose: 36.1 Date: 01/01/2021 Injection Time: 1345 HR Resting HR Supine: 57 bpm Max Heart Rate (APMHR): 147.039344 bpm Target HR (85% APMHR): 124.038590 bpm Max HR Achieved: 99 bpm % of APMHR: 67.35 Recovery HR: 91 bpm BP Resting BP Supine: 180/82 mmHg Max BP: 180/82 mmHg ECG Resting ECG: Sinus Bradycardia Ectopy: None Comment: ST elevation 1mm lead V2 Stress ECG: Sinus Rhythm ST Change: No significant ST segment changes noted Arrhythmia: PAC, PVC Clinical Stress Symptoms: Dyspnea Rate Pressure Product: [id number] Stress ECG Conclusion 1. This is a pharmacological stress test. 2. The patient no symptoms suggestive of ischemia. 3. The ECG portion of this exam is nondiagnostic. Stress Test Summary STAGE HR BP Symptoms NOTES Supine 57 180/82 1 min post Lexiscan injection 71 174/82 SOB 3 min post Lexiscan injection 97 176/72 symptoms resolved 6 min post Lexiscan injection 91 170/76 MPI Conclusion The patient's ejection fraction was 62% with stress. There were no wall motion abnormalities. There was no evidence of ischemia on the imaging portion exam. This represents a normal SPECT stress test. Radiologist Interpretation Radiologist Interpretation by: Tremaine Camilo MD Interpretation Date/Time: 01/01/2021 16:58:24
[2021-01-01] MEDS: Regadenoson 0.4 MG/5 ML SYR IVP (13:33)
== END 2021-01-01 02:19 ==
PROVIDERS: PCP Nurse Practitioner Family; Visit Provider Internal Medicine Cardiovascular Disease
DX: R06.09 Other forms of dyspnea (principal); R00.2 Palpitations; I10 Essential (primary) hypertension; E78.5 Hyperlipidemia, unspecified; Z87.891 Personal history of nicotine dependence; Z82.49 Family history of ischemic heart disease and other diseases of the circulatory system; I25.10 Atherosclerotic heart disease of native coronary artery without angina pectoris; Z86.79 Personal history of other diseases of the circulatory system
CPT/HCPCS: 78452; 93016; 93018; 93017; J2785

== ENCOUNTER 2021-01-12 10:38 | Inpatient (IN) | payer MEDICARE, BC, SELFPAY ==
[2021-01-12 10:45] VITALS: BP 172/95; PULSE 82; RESP 20; TEMP 36; O2SAT 97
--- NOTE | 2021-01-12 11:25 | ED.GENADUL_ITS ---
Discharge Plan Discharge Details Chief Complaint: Nk/Back Pain Admit Date/Time: 01/12/21 13:04 Admit Provider: Vasile Castellanos Attending Provider: Vasile Castellanos Primary Care Provider: Margaret Jorge ED Provider: Sadaf Finley Medical Decision Making Case discussed with Meng, and physician certified registered dental assistant on-call for Dr. Herrera, neurosurgeon at [facility] neurosurgery, we reviewed patient's MRI from 3 weeks prior and he does not believe urgent surgical intervention is necessary at this time after reviewing MRI with patient surgeon He recommends admission for pain control and possible repeat MRI Decadron 4 mg was given intravenously and fentanyl and patient is resting with mild increase discomfort in the room Of note, patient did have a complete vascular work-up 3 weeks ago at [facility] as he is a vasculopath He will be admitted at this time CRP is negative, diagnostic labs do not show acute pathology Patient agreeable to admission at this time No clinical evidence of cauda equina syndrome I reviewed patient's prior MRI with neuroforaminal stenosis Lower suspicion for epidural abscess, afebrile, no elevation in CRP, and no leukocytosis Neuro exam does not show evidence of cauda equina syndrome on my evaluation today Differential Diagnosis Differential Diagnosis: Lumbar radiculopathy, chronic pain, cauda equina syndrome, epidural abscess Medical Records Medical records reviewed: Yes I reviewed the patient's medical records. Lab Data Lab results reviewed: Yes I reviewed the patient's lab results. HPI This 75-year-old male presents with past medical history of OR, radiology testing, hypertension, anxiety, Parkinson's disease with worsening low back compa n. Pain reportedly radiates into patient's right lower extremity and he has had worsening weakness to his right foot. He has chronic foot drop at baseline but increasing difficult secondary to pain and weakness. Denies changes in bowel or bladder. He has had worsening stress incontinence but denies that this is new. Denies saddle anesthesia he denies any additional urinary symptoms. He denies any changes in bowels. He denies fever or chills. He denies any abdominal discomfort. General Date/Time Provider Initiated Documentation: 01/12/21 10:50 . Related Data Home Medications Medication Instructions Recorded Confirmed nitroglycerin [Nitrostat] 0.4 mg SUBLINGUAL PRN PRN 11/23/13 01/12/21 sertraline [Zoloft] 200 mg PO DAILY tab-cap 10/28/14 01/12/21 solifenacin [Vesicare] 5 mg PO DAILY tab-cap 01/05/17 01/12/21 acetaminophen [Acetaminophen Extra 1,000 mg PO TID #180 tab 03/31/17 01/12/21 Strength] ibuprofen [Ibuprofen IB] 600 mg PO TID PRN 04/30/17 01/12/21 aspirin [Aspirin Low-Strength] 81 mg PO DAILY 06/28/17 01/12/21 docusate sodium 100 mg PO TID 03/19/19 01/12/21 levothyroxine 50 mcg tablet 88 mcg PO DAILY tab-cap 07/12/19 01/12/21 loratadine 10 mg tablet 10 mg PO DAILY 03/05/20 01/12/21 atorvastatin 80 mg tablet 80 mg PO HS 08/21/20 01/12/21 entacapone 200 mg tablet 200 mg PO QID #360 tab 08/21/20 01/12/21 alfuzosin 10 mg tablet,extended 10 mg PO DAILY 11/18/20 01/12/21 release 24 hr carbidopa ER 25 mg-levodopa 100 mg 1 tab PO QHS #90 tab 11/18/20 01/12/21 tablet,extended release clopidogrel 75 mg tablet 75 mg PO DAILY 11/18/20 01/12/21 ferrous gluconate 256 mg (28 mg 256 mg PO DAILY 11/18/20 01/12/21 iron) tablet gabapentin 600 mg tablet 600 mg PO QID tab 11/18/20 01/12/21 sennosides 8.6 mg capsule 17.2 mg PO QHS 11/18/20 01/12/21 famotidine [Pepcid] 40 mg PO QHS #90 tab 11/26/20 01/12/21 Tumeric 1 cap PO DAILY 01/12/21 baclofen 10 mg PO HS 01/12/21 01/12/21 carbidopa-levodopa 1 tab PO QID 01/12/21 01/12/21 ergocalciferol (vitamin D2) 5,000 tab PO DAILY 01/12/21 01/12/21 hydrocodone-acetaminophen 1 tab PO TID 01/12/21 01/12/21 psyllium husk [Metamucil] 0.52 - 1.04 g PO DAILY 01/12/21 01/12/21 Previous Rx's Medication Instructions Recorded acetaminophen [Acetaminophen Extra 1,000 mg PO TID #180 tab 03/31/17 Strength] entacapone 200 mg tablet 200 mg PO QID #360 tab 08/21/20 carbidopa ER 25 mg-levodopa 100 mg 1 tab PO QHS #90 tab 11/18/20 tablet,extended release famotidine [Pepcid] 40 mg PO QHS #90 tab 11/26/20 Allergies Allergy/AdvReac Type Severity Reaction Status Date / Time mirabegron [From Myrbetriq] Allergy Mild unknown Verified 01/12/21 11:15 finasteride AdvReac Severe Hypotension Verified 01/12/21 11:15 General Stated Complaint: Nk/Back Pain MARTIN: 3 Review of Systems Narrative: Review of systems obtained x7 aside from where indicated in HPI [facility] Medical History (Updated 12/22/20 @ 14:09 by Catalino Salazar MD) ADD (attention deficit disorder) Anxiety Arthralgia of left acromioclavicular joint (02/02/17) Atrophy of right hand muscles (03/10/16) Blood glucose elevated BPH (benign prostatic hyperplasia) CAD (coronary artery disease) Claudication bilateral Constipation due to slow transit (03/10/16) Contracture of hand Depression Dizziness History of ST elevation myocardial infarction (STEMI) 2014-F/U with cardiology Dr. Salazar Hyperlipidemia Hypothyroidism Inguinal hernia left and right Insomnia Iron deficiency anemia Left hip pain Low back pain Lumbosacral radiculopathy (11/11/14) OR (myocardial infarction) 2014 Mild cognitive impairment (05/19/16) Nausea Orthostatic hypotension due to Parkinson's disease (02/09/18) Parkinson disease (03/10/16) Peripheral artery disease Restless leg syndrome (08/08/17) SVT (supraventricular tachycardia) Trochanteric bursitis of left hip Urinary retention Vertigo Surgical History Cardiac cath 2013 Colonoscopy - IV Sedation (07/27/16) LAURENT to RCA x 3 2013 Hernia Repair, Incisional (09/28/16) right femoral x5 History of carpal tunnel surgery of left wrist Incomplete tear of left rotator cuff (02/02/17) s/p repair March 2017 medial facetectomy L4-5 01/30/15 Repair of inguinal hernia RIH repair >50 years ago Repair of umbilical hernia S/P bilateral cataract extraction S/P lumbar spine operation 05/10/19; Dr. 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 Current gender identity: male What is your relationship status?: Panel score (0-1 are the most socially isolated patients): 1 What type of physical activity do you participate in: walking and additional Details: WORKS ON THE [employer] and yard work Do you feel safe at home: Yes Do you feel safe in your relationship?: Yes Exam Const General: cooperative, acute distress and frail appearing Neck Neck: normal visual inspection Chest Chest: normal inspection of the chest Resp Effort & Inspection: normal respiratory effort Auscultation: clear to auscultation bilaterally Cardio Rate: regular rate Rhythm: regular rhythm GI Inspection: normal to inspection Auscultation: normal bowel sounds Other: No abdominal bruit or pulsatile mass Back/Spine/Pelvis Back: no CVA tenderness Other: Tenderness with palpation along lumbar spine and right sacroiliac region Skin General skin exam: no rashes or lesions noted Neuro General: patient alert and patient oriented x3 Other: Mildly diminished sensation to right lower extremity, chronic right foot drop, patellar tendon reflex intact on the right side strength intact to right lower extremity Extrem Other: Distal pulses intact Course Vital Signs Vital signs: Vital Signs Temperature 36 C L 01/12/21 10:45 Pulse 82 01/12/21 10:45 Respiratory Rate 20 01/12/21 10:45 Blood Pressure 172/95 H 01/12/21 10:45 Pulse Oximetry 97 01/12/21 10:45 Temperature 36 C L 01/12/21 10:45 Temperature Source Skin 01/12/21 10:45 Pulse 82 01/12/21 10:45 Respiratory Rate 20 01/12/21 10:45 Respiratory Effort 03/15/21 11:01 Blood Pressure 172/95 H 01/12/21 10:45 Blood Pressure Position Supine 01/12/21 10:45 Pulse Oximetry 97 01/12/21 10:45 Oxygen Delivery Method Room Air 01/12/21 10:45 Oxygen Flow Rate 0 01/12/21 10:45 Pain Level 10 01/12/21 11:02 Comment 01/12/21 10:45
[2021-01-12 11:42] LABS: Abs Immature Grans 0.03 10^3/uL (0.0-0.06); Absolute Basophil Count 0.04 10^3/uL (0.0-0.2); Absolute Eosinophil Count 0.05 10^3/uL (0.0-0.7); Absolute Monocyte Count 0.45 10^3/uL (0.1-0.8); Absolute Neutrophil Count 5.37 10^3/uL (1.2-6.7); Basophils % 0.6; Eosinophils % 0.8; HCT 39.2 % (40.0-50.0); HGB 13.4 g/dL (13.5-17.5); Immature Grans % 0.5; Lymphocytes % 10.5; MCH 30.6 pg (27.0-33.0); MCHC 34.2 % (32.0-36.0); MCV 89.5 fL (80-95); MPV 9.8 fL (8.0-11.0); Monocytes % 6.8; Neutrophils % 80.8; Nucleated RBC 0 %; Platelet Count 179 10^3/uL (130-400); RBC 4.38 10^6/uL (4.36-5.78); RDW-SD 39.8 fL; WBC 6.64 10^3/uL (4.4-10.8)
[2021-01-12] MEDS: Dexamethasone 4 MG/ML VIAL IVP (11:42)
[2021-01-12] MEDS: fentaNYL 100 MCG/2 ML VIAL 50 MCG IVP ×4 (11:42→22:25)
[2021-01-12 11:55] LABS: ALT 14 U/L (16-63); AST 23 U/L (15-37); Albumin 3.8 g/dL (3.4-5.0); Alkaline Phosphatase 83 U/L (46-116); Anion Gap 9.7 mmol/L (3-11); BUN 14 mg/dL (7-18); Bilirubin, Total 0.6 mg/dL (0.2-1.0); CO2 25.3 mmol/L (21.0-32.0); Calcium 8.5 mg/dL (8.5-10.1); Chloride 102 mmol/L (98-107); Glucose 110 mg/dL (74-106); Potassium 4.1 mmol/L (3.5-5.1); Sodium 137 mmol/L (136-145); Total Protein 7.2 g/dL (6.4-8.2)
[2021-01-12 11:56] LABS: C-Reactive Protein < 0.05 mg/dL (0.0-0.3)
[2021-01-12 12:25] LABS: Bilirubin Color Interference (Negative); Blood Color Interference (Negative); Clarity Clear (Clear); Glucose Color Interference mg/dL (Negative); Ketones Color Interference mg/dL (Negative); Leukocyte Esterase Color Interference (Negative); Nitrite Color Interference (Negative); Specific Gravity 1.022 (1.005-1.025); Urobilinogen Color Interference EU/dL (Up TO 0.2)
[2021-01-12 12:34] LABS: Bacteria Rare HPF (Negative); C & S Indicated? No; Casts Negative LPF (Negative); Crystals Negative HPF (Negative); Epithelial Cells Rare HPF (Negative); Mucus Moderate (Negative); RBC Negative HPF (0-2); WBC 0-2 HPF (0-5)
[2021-01-12 13:30] VITALS: BP 157/83; PULSE 63; RESP 16; TEMP 36.7; O2SAT 96
[2021-01-12 13:35] VITALS: BP 157/83; PULSE 63; RESP 16; TEMP 36.7; O2SAT 96
[2021-01-12 13:37] LABS: Source Nasal/Nares
--- NOTE | 2021-01-12 13:41 | NUR.NOTE ---
patient medicated per MD order. Nursing Note:
[2021-01-12 14:10] VITALS: BP 168/92; PULSE 79; RESP 20; TEMP 36.6; O2SAT 93
[2021-01-12 14:13] VITALS: BP 168/92; PULSE 79; RESP 20; TEMP 36.6; O2SAT 93
[2021-01-12] MEDS: Enoxaparin 40 MG/0.4 ML SYR SC (15:20)
--- NOTE | 2021-01-12 15:35 | HPE_ITS ---
Date of service: 01/12/21 Time of Service: 15:36 Assessment and Plan Assessment and plan (1) Low back pain: Status: Acute Assessment and plan: MRI Lumbar spine from 12/22/20: shows multilevel degenerative disc disease with new posterolateral right disc protrusion at L4-5 level as described above, associated with element of lateral recess and foraminal stenosis. There has also been increase in amount of generalized annular bulging at L1-2 level which has increased. Although this slightly indents the anterior thecal sac there is no prominent central nor foraminal stenosis evident at this level. Asymmetric foraminal stenosis also evident at L5-S1 level with significant right-sided vertical foraminal stenosis at this level evident and milder foraminal stenosis on the opposite-left side at this l evel. Dilaudid 2 mg PO q3 hrs PRN for pain, IV morphine 2-4 mg PRN for severe pain, IV toradol, and soma. Aqua K jason for comfort. He received dexamethasone in the ED. Consider adding steroids if pain persists. [place] to obtain records from Dr. Hinojosa, [facility] tomorrow when office is open. IV fluids due to IV toradol. Monitor BMP. (2) CAD (coronary artery disease): Status: None Assessment and plan: Continue ASA and plavix. Recent MPI shows no symptoms suggestive of ischemia (01/01/21). Echocardiogram 12/26/20 shows LVEF 60%. (3) Parkinson disease: Status: Acute Assessment and plan: Continue outpatient regimen. (4) Mild cognitive impairment: Status: Acute Assessment and plan: Answers questions appropriately. Also talked with juan ramon kilpatrick (5) DVT prophylaxis: Status: Acute Assessment and plan: Subcutaneous lovenox. (6) Discharge planning issues: Status: Acute Assessment and plan: Obtain records from Neurosurgeon's office. If no improvement, contact Dr. Hinojosa for recommendations. Will need close outpatient follow up at the least. History of Present Illness History of Present Illness Chief Complaint: Back pain Narrative: Dayne Gomes is a 75 year old man with a past medical history significant for parkinson's disease, RLS, anxiety, CAD with NV, PAD, hypotension, and back pain who is followed by Neurosurgeon at [facility]. He presented to the ED today with reports of worsening low back pain. He had an MRI 3 weeks ago, which was reviewed by his surgeon at [facility] and discussed with the ED attending provider. He is followed by Dr. Hinojosa. His surgeon does not recommend urgent surgical intervention at this time. Rather, he recommended admission here for pain control and possible repeat MRI. He was given decadron 4 mg IV and fentanyl in the ED. He is admitted to the med/surg floor for further evaluation and management. Started 2-3 months ago, it became worse a couple of weeks ago. has had back surgery 2x, last one was 04/2019. urinating without difficulty. His urine is orange, his reports that he takes tumeric. He moved his bowels yesterday. Pain is in same area as previous numbness to toes, R>L, comes and goes at baseline. He has been able to ambulate, standing helps for a brief period of time. He completed a medrol dose pack last week, his reports that it did not touch the pain. He reports recently doing firewood and shoveling snow. He has a follow up appointment scheduled with spine clinic in February at this point. He has been able to eat and drink, no nausea or vomiting. Has taken oxycodone in the past but it made him nauseated and he does not want to take it again. Of note, he had a vascular work-up recently. He had an MRI lumbar spine on 12/22/20 which showed: 1. Multilevel degenerative disc disease. When compared to the prior MRI scan of January 2019 there is now a posterolateral right disc protrusion at L4-5 level as described above, associated with element of lateral recess and foraminal stenosis. 2. There has also been increase in amount of generalized annular bulging at L1-2 level which has increased. Although this slightly indents the anterior thecal sac there is no prominent central nor foraminal stenosis evident at this level. 3. Asymmetric foraminal stenosis also evident at L5-S1 level with significant right-sided vertical foraminal stenosis at this level evident and milder foraminal stenosis on the opposite-left side at this level. Review of Systems All systems reviewed & are unremarkable except as noted in HPI and below PFSH Medical History ADD (attention deficit disorder) Anxiety Arthralgia of left acromioclavicular joint (02/02/17) Atrophy of right hand muscles (03/10/16) Blood glucose elevated BPH (benign prostatic hyperplasia) CAD (coronary artery disease) Claudication bilateral Constipation due to slow transit (03/10/16) Contracture of hand Depression Dizziness History of ST elevation myocardial infarction (STEMI) 2014-F/U with cardiology Dr. Salazar Hyperlipidemia Hypothyroidism Inguinal hernia left and right Insomnia Iron deficiency anemia Left hip pain Low back pain Lumbosacral radiculopathy (11/11/14) NV (myocardial infarction) 2014 Mild cognitive impairment (05/19/16) Nausea Orthostatic hypotension due to Parkinson's disease (02/09/18) Parkinson disease (03/10/16) Peripheral artery disease Restless leg syndrome (08/08/17) SVT (supraventricular tachycardia) Trochanteric bursitis of left hip Urinary retention Vertigo Surgical History Cardiac cath 2013 Colonoscopy - IV Sedation (07/27/16) LAURENT to RCA x 3 2013 Hernia Repair, Incisional (09/28/16) right femoral x5 History of carpal tunnel surgery of left wrist Incomplete tear of left rotator cuff (02/02/17) s/p repair March 2017 medial facetectomy L4-5 01/30/15 Repair of inguinal hernia RIH repair >50 years ago Repair of umbilical hernia S/P bilateral cataract extraction S/P lumbar spine operation 05/10/19; Dr. 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 Current gender identity: male What is your relationship status?: Panel score (0-1 are the most socially isolated patients): 1 What type of physical activity do you participate in: walking and additional Details: WORKS ON THE [employer] and yard work Do you feel safe at home: Yes Do you feel safe in your relationship?: Yes Meds Home Medications and Allergies Allergies Allergy/AdvReac Type Severity Reaction Status Date / Time mirabegron [From Myrbetriq] Allergy Mild unknown Verified 01/12/21 11:15 finasteride AdvReac Severe Hypotension Verified 01/12/21 11:15 Home Medications Medication Instructions Recorded Confirmed Type nitroglycerin [Nitrostat] 0.4 mg SUBLINGUAL PRN PRN 11/23/13 01/12/21 History sertraline [Zoloft] 200 mg PO DAILY tab-cap 10/28/14 01/12/21 History solifenacin [Vesicare] 5 mg PO DAILY tab-cap 01/05/17 01/12/21 History acetaminophen [Acetaminophen Extra 1,000 mg PO TID #180 tab 03/31/17 01/12/21 Rx Strength] ibuprofen [Ibuprofen IB] 600 mg PO TID PRN 04/30/17 01/12/21 History aspirin [Aspirin Low-Strength] 81 mg PO DAILY 06/28/17 01/12/21 History docusate sodium 100 mg PO TID 03/19/19 01/12/21 History levothyroxine 50 mcg tablet 88 mcg PO DAILY tab-cap 07/12/19 01/12/21 History loratadine 10 mg tablet 10 mg PO DAILY 03/05/20 01/12/21 History atorvastatin 80 mg tablet 80 mg PO HS 08/21/20 01/12/21 History entacapone 200 mg tablet 200 mg PO QID #360 tab 08/21/20 01/12/21 Rx alfuzosin 10 mg tablet,extended 10 mg PO DAILY 11/18/20 01/12/21 History release 24 hr carbidopa ER 25 mg-levodopa 100 mg 1 tab PO QHS #90 tab 11/18/20 01/12/21 Rx tablet,extended release clopidogrel 75 mg tablet 75 mg PO DAILY 11/18/20 01/12/21 History ferrous gluconate 256 mg (28 mg 256 mg PO DAILY 11/18/20 01/12/21 History iron) tablet gabapentin 600 mg tablet 600 mg PO QID tab 11/18/20 01/12/21 History sennosides 8.6 mg capsule 17.2 mg PO QHS 11/18/20 01/12/21 History famotidine [Pepcid] 40 mg PO QHS #90 tab 11/26/20 01/12/21 Rx Tumeric 1 cap PO DAILY 01/12/21 History baclofen 10 mg PO HS 01/12/21 01/12/21 History carbidopa-levodopa 1 tab PO QID 01/12/21 01/12/21 History ergocalciferol (vitamin D2) 5,000 tab PO DAILY 01/12/21 01/12/21 History hydrocodone-acetaminophen 1 tab PO TID 01/12/21 01/12/21 History psyllium husk [Metamucil] 0.52 - 1.04 g PO DAILY 01/12/21 01/12/21 History Exam Narrative Exam Narrative: General: 75 year old man, appears stated age, laying in bed, appears uncomfortable, grimacing at times, furrowed brow. HEENT: Normocephalic, atraumatic, makes good eye contact, pupils equal and round, mucous membranes slightly dry. Neck: Supple, no JVD. Cardiovascular: Heart sounds regular, nontachycardic. Respiratory: respirations appear even and unlabored, lung sounds clear througho ut. GI: soft, nontender on palpation, nondistended, +BS. No CVA tenderness. Extremities: moves all 4 extremities freely, no edema. Back: right low back pain on palpation at sciatic notch. Results Labs Result diagrams: 01/12/21 11:35 01/12/21 11:35 Labs: Laboratory Results - last 24 hr 01/12/21 01/12/21 01/12/21 11:35 11:35 12:00 WBC 6.64 RBC 4.38 Hgb 13.4 L Hct 39.2 L MCV 89.5 MCH 30.6 MCHC 34.2 RDW 12.0 Plt Count 179 MPV 9.8 Immature Gran % 0.5 Neutrophils % 80.8 Lymphocytes % 10.5 Monocytes % 6.8 Eosinophils % 0.8 Basophils % 0.6 Nucleated RBC % 0 Absolute Neutrophils 5.37 Absolute Lymphocytes 0.70 L Absolute Monocytes 0.45 Absolute Eosinophils 0.05 Absolute Basophils 0.04 Sodium 137 Potassium 4.1 Chloride 102 Carbon Dioxide 25.3 Anion Gap 9.7 BUN 14 Creatinine 1.0 Estimated GFR/1.73 m2 >= 60.00 Glucose 110 H Calcium 8.5 Total Bilirubin 0.6 AST 23 ALT 14 L Alkaline Phosphatase 83 C-Reactive Protein < 0.05 Total Protein 7.2 Albumin 3.8 Urine Color [employer] Urine Clarity Clear Urine pH Not Applicable Ur Specific [place] 1.022 Urine Protein Color interference Urine Ketones Color interference Urine Blood Color interference Urine Nitrite Color interference Urine Bilirubin Color interference Urine Urobilinogen Color interference Ur Leukocyte Esterase Color interference Urine RBC Negative Urine WBC 0-2 Ur Epithelial Cells Rare Urine Crystals Negative Urine Bacteria Rare Urine Casts Negative Urine Mucus Moderate Ur Culture Indicated? No Urine Glucose Color interference COVID-19 Source SARS-CoV-2 (PCR) 01/12/21 01/12/21 13:13 13:27 WBC RBC Hgb Hct MCV MCH MCHC RDW Plt Count MPV Immature Gran % Neutrophils % Lymphocytes % Monocytes % Eosinophils % Basophils % Nucleated RBC % Absolute Neutrophils Absolute Lymphocytes Absolute Monocytes Absolute Eosinophils Absolute Basophils Sodium Potassium Chloride Carbon Dioxide Anion Gap BUN Creatinine Estimated GFR/1.73 m2 Glucose Calcium Total Bilirubin AST ALT Alkaline Phosphatase C-Reactive Protein Total Protein Albumin Urine Color Urine Clarity Urine pH Ur Specific [place] Urine Protein Urine Ketones Urine Blood Urine Nitrite Urine Bilirubin Urine Urobilinogen Ur Leukocyte Esterase Urine RBC Urine WBC Ur Epithelial Cells Urine Crystals Urine Bacteria Urine Casts Urine Mucus Ur Culture Indicated? Urine Glucose COVID-19 Source Cancelled Nasal/nares SARS-CoV-2 (PCR) Cancelled Negative Last Vital Signs Temp 36.6 C 01/12/21 14:13 Pulse 79 01/12/21 14:13 Resp 20 01/12/21 14:13 BP 168/92 H 01/12/21 14:13 Pulse Ox 93 01/12/21 14:13 COVID-19 Screening Have you, or household traveled for leisure in last 14 days?: No Had IN PERSON contact w/suspected or confirmed C-19 person: No
[2021-01-12] MEDS: MORPHine 4 MG/ML SYR IVP ×2 (15:48→19:40)
[2021-01-12] MEDS: Normal Saline Flush 10 ML SYR (15:54)
[2021-01-12] MEDS: HYDROmorphone 2 MG TAB PO ×2 (16:09→18:56)
[2021-01-12 16:44] LABS: COVID-19 PCR Negative (Negative)
[2021-01-12] MEDS: Ketorolac 30 MG/ML VIAL IVP ×2 (17:15→23:55)
[2021-01-12] MEDS: Normal Saline 1,000 ML 80 ML IV (17:16)
[2021-01-12] MEDS: Gabapentin 600 MG TAB PO (19:41)
[2021-01-12] MEDS: Atorvastatin 40 MG TAB 80 MG PO (19:41)
[2021-01-12] MEDS: Acetaminophen 500 MG TAB 1000 MG PO (19:41)
[2021-01-12] MEDS: Carbidopa 25/Levodopa 100 TAB PO (19:41)
[2021-01-12] MEDS: Famotidine 20 MG TAB 40 MG PO (21:20)
[2021-01-12] MEDS: Senna TAB 2 TAB PO (21:20)
[2021-01-12 23:46] VITALS: BP 163/89; PULSE 80; RESP 20; TEMP 36.7; O2SAT 95
[2021-01-13] MEDS: fentaNYL 100 MCG/2 ML VIAL 50 MCG IVP ×4 (00:28→06:42)
[2021-01-13] MEDS: Mylanta Suspension 30 ML CUP PO (04:58)
[2021-01-13] MEDS: Normal Saline 1,000 ML 80 ML IV ×2 (04:59→20:45)
[2021-01-13] MEDS: Levothyroxine 50 MCG TAB 88 MCG PO (05:11)
[2021-01-13] MEDS: Ketorolac 30 MG/ML VIAL IVP ×4 (06:09→23:59)
[2021-01-13 07:15] LABS: HGB 13.6 g/dL (13.5-17.5); MCH 30.3 pg (27.0-33.0); MCV 89.1 fL (80-95); MPV 9.9 fL (8.0-11.0); Platelet Count 205 10^3/uL (130-400); RBC 4.49 10^6/uL (4.36-5.78); RDW-SD 39.6 fL; WBC 8.63 10^3/uL (4.4-10.8)
[2021-01-13 07:25] LABS: Anion Gap 11.3 mmol/L (3-11); BUN 21 mg/dL (7-18); CO2 23.7 mmol/L (21.0-32.0); CREATININE 1.1 mg/dL (0.70-1.30); Calcium 8.6 mg/dL (8.5-10.1); Chloride 102 mmol/L (98-107); Glucose 94 mg/dL (74-106); Potassium 3.7 mmol/L (3.5-5.1); Sodium 137 mmol/L (136-145)
[2021-01-13 07:32] VITALS: BP 170/91; PULSE 73; RESP 20; TEMP 36.5; O2SAT 96
[2021-01-13 08:42] VITALS: BP 180/88; PULSE 80; RESP 20; TEMP 36.4; O2SAT 98
[2021-01-13] MEDS: Ondansetron 4 MG/2 ML VIAL IVP (08:44)
[2021-01-13] MEDS: Acetaminophen 500 MG TAB 1000 MG PO ×3 (08:44→20:45)
[2021-01-13] MEDS: Sertraline 50 MG TAB 200 MG PO (08:45)
[2021-01-13] MEDS: Carbidopa 25/Levodopa 100 TAB PO ×4 (08:45→20:43)
[2021-01-13] MEDS: Gabapentin 600 MG TAB PO ×4 (08:45→20:44)
[2021-01-13] MEDS: Clopidogrel 75 MG TAB PO (08:45)
[2021-01-13] MEDS: Loratidine 10 MG TAB PO (08:45)
[2021-01-13] MEDS: Aspirin 81 MG CHEW PO (08:45)
--- NOTE | 2021-01-13 09:00 | RT.EKG_ITS ---
APPROVED REPORT Exam: Resting ECG Patient Location: I HR:80 bpm ECG Measurements Heart Rate 80 AXIS RI 145 P 59 QRSd 80 QRS 10 QT 370 T 20 QTc 429 Conclusion Sinus rhythm...normal P axis, V-rate 60- 99 Normal Electrocardiogram
--- NOTE | 2021-01-13 10:06 | IN_ITS ---
Date of service: 01/13/21 Time of Service: 10:06 PT Notes Visit Reasons: BACK PAIN Physical Therapy Inpatient Initial Evaluation Date: 01/13/2021 Referring Doctor: Leslie Huerta NP PT Orders: PT CONSULT: Back pain, lower extremity weakness, foot drop Precautions: Fall. Standard. Activity as tolerated. Patient Profile/Admitting Diagnosis: Dayne is a 75-year-old male who presented to the ED on 01/12/2021 with chief complaint of low back pain exacerbation. Patient is diagnosed with low back pain with posterolateral disc protrusion seen at L4-L5, annular bulging at L1-L2, and right-sided foraminal stenosis at L5-S1 with milder foraminal stenosis on the left side at L5-S1. PMHX: Medical History ADD (attention deficit disorder) Anxiety Arthralgia of left acromioclavicular joint (02/02/17) Atrophy of right hand muscles (03/10/16) Blood glucose elevated BPH (benign prostatic hyperplasia) CAD (coronary artery disease) Claudication bilateral Constipation due to slow transit (03/10/16) Contracture of hand Depression Dizziness History of ST elevation myocardial infarction (STEMI) 2014-F/U with cardiology Dr. Salazar Hyperlipidemia Hypothyroidism Inguinal hernia left and right Insomnia Iron deficiency anemia Left hip pain Low back pain Lumbosacral radiculopathy (11/11/14) OR (myocardial infarction) 2014 Mild cognitive impairment (05/19/16) Nausea Orthostatic hypotension due to Parkinson's disease (02/09/18) Parkinson disease (03/10/16) Peripheral artery disease Restless leg syndrome (08/08/17) SVT (supraventricular tachycardia) Trochanteric bursitis of left hip Urinary retention Vertigo Surgical History Cardiac cath 2014 Colonoscopy - IV Sedation (07/27/16) LAURENT to RCA x 3 2013 Hernia Repair, Incisional (09/28/16) right femoral x5 History of carpal tunnel surgery of left wrist Incomplete tear of left rotator cuff (02/02/17) s/p repair March 2017 medial facetectomy L4-5 01/30/15 Repair of inguinal hernia RIH repair >50 years ago Repair of umbilical hernia S/P bilateral cataract extraction S/P lumbar spine operation 05/10/19; Dr. Hinojosa Social History/Home Situation: Lives with in a private home with one step to enter. Unable to elaborate further due to confusion. Equipment Owned/DME: Unable to recall Subjective: Agreeable to getting out of bed and to PT consult. Complained of pain in R hip and thigh as well as the top of his R foot. Reports dizziness with motion and at rest. Wanted to talk with immediately as he states that something is wrong. Pointed to the corner of the room and asked this PT if a figure he is seeing is his . States that he is cold all of a sudden. Objective: General Observation: Supine in bed. Appears anxious. Mandibular tremors seen. IV in R brachium. Mental Status: Unable to determine where he is. States that we are in the year 1999. He however was able to recall his phone number and was able to talk with on the phone. Thenar/hypothenar athrophy from old R hand injury seen Pain: 4/10 pain in the R hip and thigh Vital Signs: WNL when taken aafter first short ambulation activity ROM: Right Upper Extremity: Shoulder Flexion allows only up to about 90 degrees. Shoulder abduction WFL allows only up to about 90 degrees. Elbow flexion WFL. Wrist flexion WFL. Opening and closing of hand WFL. Left Upper Extremity: Shoulder Flexion allows only up to about 90 degrees. Shoulder abduction WFL allows only up to about 90 degrees. Elbow flexion WFL. Wrist flexion WFL. Opening and closing of hand WFL. Right Lower Extremity: Hip flexion WFL. Hip abduction WFL. Knee flexion WFL. Ankle dorsiflexion to neutral only. Ankle plantarflexion WFL. Left Lower Extremity: Hip flexion WFL. Hip abduction WFL. Knee flexion WFL. Ankle dorsiflexion WFL. Ankle plantarflexion WFL. Strength: Right Upper Extremity: Shoulder flexors 3-/5. Shoulder abductors 3-/5. Elbow flexors 4-/5. Elbow extensors 4-/5. Platen Press Operator strong. Left Upper Extremity: Shoulder flexors 3-/5. Shoulder abductors 3-/5. Elbow flexors 4-/5. Elbow extensors 4-/5. Platen Press Operator strong. Right Lower Extremity: Hip flexors 4-/5. Hip abductors 4-/5. Knee flexors 4-/5. Knee extensors 4-/5. Ankle dorsiflexors 3-/5. Ankle plantarflexors 4-/5. Left Lower Extremity: Hip flexors 4-/5. Hip abductors 4-/5. Knee flexors 4-/5. Knee extensors 4-/5. Ankle dorsiflexors 3-/5. Ankle plantarflexors 4-/5. Sensation: Intact as to pain and pressure on bilateral lower extremities. Bed Mobility/Transfers: Rolling standby assist Supine to sit standby assist with HOB 30 degrees Sit to supine standby assist Sit to stand standby assist Stand to sit contact-guard assist Bed to chair contact-guard assist Chair to bed contact-guard com Gait: Guided patient through short distance ambulation 20 feet x 4 requiring contact guard assist with complaints of pain at 3/10 pain in the right hip and constant dizziness. Mild foot drop seen in R. Balance: Static Sitting: Normal Dynamic Sitting: Normal Static Standing: Fair Dynamic Standing: Fair Special Tests: Mobility Limitations Standardized Measure [facility] 6 clicks Basic Mobility Inpatient Short Form: Raw Score: 18 CMS Score: 47% deficit Straight Leg Raise: Symptom exacerbation with SLR resulting to increased pain in thigh (R >> L) that affects the both calves and feet. 4-stage Balance Test: Unable to perform due to complaint of dizziness. Informed Consent/Education: Patient instructed in purpose of PT consult and plan of care. Assessment: Dayne demonstrates dizziness, confusion, possible visual hallucination, and anxiety that limited mobility assessment. He will require the use of FWW for all transfer and ambulation tasks for safety. Patient presents with clinical signs and symptoms consistent with current/admitting diagnoses that have resulted to mobility limitations, gait instability, generalized weakness, and impairment of motor control as demonstrated by the following impairment level findings: 1. Decreased strength to B shoulders, B hips major muscle groups 2. Impaired standing balance 3. Impaired activity tolerance 4. Confusion 5. Dizziness Impairments are contributing to the following functional limitations: 1. Inability to safely ambulate without assistive device 2. Increase completion time for mobility ADL performance 3. Increased fall risk 4. Inability to negotiate steps alone safely Patient is assessed as a 99552 moderate complexity based on the following: History: 75-year-old male with impairment level findings, functional limitati ons, and past medical history as indicated above Examination: Demonstrable impairment in strength, balance, and mobility level with underlying impairments and functional limitations as documented above Presentation:Evolving Decision Makin moderate complexity Goals: Goals X1 week 1. Supine-Sit independent 2. Sit-Supine independent 3. Sit-Stand independent 4. Stand-Sit independent 5. Bed-Chair independent 6. Chair-Bed independent 7. Supervision gait on level surface with use of least restrictive device for at least 300 feet without report of pain nor dyspnea 8. Supervision stair negotiation while holding onto bilateral rails for at least 10 steps without report of pain nor dyspnea 9. Independent with home exercise program 10. Good static and dynamic standing balance/tolerance Plan of Care/Treatment Plan: 1-2x/day, 7 days/week x 1 week. Plan of care has been reviewed with the AIR TRAFFIC CONTROL SPECIALIST providing the service under Physical Therapy direction. Initiate Physical Therapy intervention for strengthening, bed mobility, transfers, gait, stairs, balance training, use of assistive device. DISCHARGE RECOMMENDATIONS: SNF vs. HH PT. Will benefit from OT evalaution and services. TREATMENT CODE/TIME: 94139 x 25 minutes beginning at 10:06 AM. Thank you for the opportunity to participate in the care of this patient. Rosalba Santos PT, DPT, CLT [facility] [place], [place]
[2021-01-13] MEDS: Ferrous Gluconate 324 MG TAB PO (10:18)
--- NOTE | 2021-01-13 12:26 | PGE_ITS ---
Date of Service Date of service: 01/13/21 Time of Service: 12:27 Assessment and Plan Assessment and plan (1) Suicidal ideation: Status: Acute Assessment and plan: making suicidal statements to nursing staff. behavioral plan placed per protocol mental health consultation placed. (2) Low back pain: Status: Acute Assessment and plan: MRI Lumbar spine from 12/22/20: shows multilevel degenerative disc disease with new posterolateral right disc protrusion at L4-5 level as described above, associated with element of lateral recess and foraminal stenosis. There has also been increase in amount of generalized annular bulging at L1-2 level which has increased. Although this slightly indents the anterior thecal sac there is no prominent central nor foraminal stenosis evident at this level. Asymmetric foraminal stenosis also evident at L5-S1 level with significant right-sided vertical foraminal stenosis at this level evident and milder foraminal stenosis on the opposite-left side at this level. will schedule MSIR with IV morphine 2-4 mg PRN for severe pain, IV toradol. Aqua K jason for comfort. He received dexamethasone in the ED. Consider adding steroids if pain persists. [employer] [place] to obtain records from Dr. Hinojosa, [facility] . IV fluids due to IV toradol. Monitor BMP. (3) CAD (coronary artery disease): Status: None Assessment and plan: Continue ASA and plavix. Recent MPI shows no symptoms suggestive of ischemia (01/01/21). Echocardiogram 12/26/20 shows LVEF 60%. (4) Parkinson disease: Status: Acute Assessment and plan: Continue outpatient regimen. (5) Mild cognitive impairment: Status: Acute Assessment and plan: Answers questions appropriately. Also talked with . (6) DVT prophylaxis: Status: Acute Assessment and plan: Subcutaneous lovenox. (7) Discharge planning issues: Status: Acute Assessment and plan: Obtain records from Neurosurgeon's office. If no improvement, contact Dr. Hinojosa for recommendations. Will need close outpatient follow up at the least. discussed with DR Castellanos Subjective Subjective Patient reports: still having pain Interval history since last seen: continues to state that he can't go on living with the pain. not responding to current treatment. anxious and reporting suicidal statements, no plan discussed Exam Narrative Exam Narrative: General: 75 year old man, appears stated age, laying in bed, appears uncomfortable, grimacing at times, furrowed brow, facial tremors. HEENT: Normocephalic, atraumatic, makes good eye contact, pupils equal and round, mucous membranes slightly dry. Neck: Supple, no JVD. Cardiovascular: Heart sounds regular, nontachycardic. Respiratory: respirations appear even and unlabored, lung sounds clear throughout. GI: soft, nontender on palpation, nondistended, +BS. No CVA tenderness. Extremities: moves all 4 extremities freely, no edema. Back: right low back pain on palpation at sciatic notch. Objective Last Vital Signs Temp 36.4 C L 01/13/21 08:42 Pulse 80 01/13/21 08:42 Resp 20 01/13/21 08:42 BP 180/88 H 01/13/21 08:42 Pulse Ox 98 01/13/21 08:42 Laboratory Results - last 24 hr 01/12/21 01/12/21 01/12/21 12:00 13:13 13:27 WBC RBC Hgb Hct MCV MCH MCHC RDW Plt Count MPV Sodium Potassium Chloride Carbon Dioxide Anion Gap BUN Creatinine Estimated GFR/1.73 m2 Glucose Calcium Urine RBC Negative Urine WBC 0-2 Ur Epithelial Cells Rare Urine Crystals Negative Urine Bacteria Rare Urine Casts Negative Urine Mucus Moderate Ur Culture Indicated? No COVID-19 Source Cancelled Nasal/nares SARS-CoV-2 (PCR) Cancelled Negative 01/13/21 01/13/21 06:50 06:50 WBC 8.63 RBC 4.49 Hgb 13.6 Hct 40.0 MCV 89.1 MCH 30.3 MCHC 34.0 RDW 12.0 Plt Count 205 MPV 9.9 Sodium 137 Potassium 3.7 Chloride 102 Carbon Dioxide 23.7 Anion Gap 11.3 H BUN 21 H D Creatinine 1.1 Estimated GFR/1.73 m2 >= 60.00 Glucose 94 Calcium 8.6 Urine RBC Urine WBC Ur Epithelial Cells Urine Crystals Urine Bacteria Urine Casts Urine Mucus Ur Culture Indicated? COVID-19 Source SARS-CoV-2 (PCR)
--- NOTE | 2021-01-13 12:47 | NUR.NOTE ---
Nursing Note: 01/13/21 Pt states he has received his first COVID vaccination. Pt is not alert and oriented x 4.
[2021-01-13 13:01] VITALS: PULSE 103; O2SAT 97
[2021-01-13] MEDS: Baclofen 10 MG TAB PO ×2 (14:18→20:44)
[2021-01-13] MEDS: LORazepam 2 MG/ML VIAL 0.5 MG IVP (14:18)
--- NOTE | 2021-01-13 15:52 | PT.INTREAT ---
Date of service: 01/13/21 Time of Service: 14:55 PT Notes Visit Reasons: BACK PAIN Inpatient Physical Therapy Treatment Note [facility] Date: 01/13/2021 PRECAUTIONS: Fall, LBP SUBJECTIVE: Dayne is pleasant and agreeable to participating in PT. He reports that he has had back pain for 12-14 years. He also reports that he is very active at home, he gardens and cuts his own firewood. OBJECTIVE: PAIN: Patient c/o R calf pain with sit-supine transfer BED MOBILITY/TRANSFERS Supine-sit: S Sit-supine: S Sit-stand: CGA Stand-sit: SBA GAIT Assistive Device: FWW Weight bearing: Full Assist: CGA Distance: 150' Deviation: LOB x2 THEREX: Patient was instructed in a LE strengthening program, performed in a standing position, as per flow sheet. ASSESSMENT: Patient tolerated a significant progression in gait distance with FWW support and CGA, demonstrating LOB x2. He would benefit from continued global strengthening and gait and transfer training for improved activity tolerance and mobility. PLAN: Continue with global strengthening and gait training for improved mobility and activity tolerance. TREATMENT CODE/TIME: 20 minutes; 15161 (14:55)
[2021-01-13 15:55] VITALS: BP 125/60; PULSE 69; RESP 18; TEMP 36.7; O2SAT 95
--- NOTE | 2021-01-13 17:00 | PT.INDS ---
Date of service: 01/13/21 PT Notes Visit Reasons: BACK PAIN Physical Therapy Inpatient Discharge Summary Date: 01/13/2021 Dates of Service: 01/13/2021 only This is a clinical summary of care provided on the duration of dates listed above. No charge was made in the completion of this documentation. Referring Doctor: Leslie Huerta NP PT Orders: PT CONSULT: Back pain, lower extremity weakness, foot drop Precautions: Fall. Standard. Activity as tolerated. Patient Profile/Admitting Diagnosis: Dayne is a 75-year-old male who presented to the ED on 01/12/2021 with chief complaint of low back pain exacerbation. Patient is diagnosed with low back pain with posterolateral disc protrusion seen at L4-L5, annular bulging at L1-L2, and right-sided foraminal stenosis at L5-S1 with milder foraminal stenosis on the left side at L5-S1. PMHX: Medical History ADD (attention deficit disorder) Anxiety Arthralgia of left acromioclavicular joint (02/02/17) Atrophy of right hand muscles (03/10/16) Blood glucose elevated BPH (benign prostatic hyperplasia) CAD (coronary artery disease) Claudication bilateral Constipation due to slow transit (03/10/16) Contracture of hand Depression Dizziness History of ST elevation myocardial infarction (STEMI) 2014-F/U with cardiology Dr. Salazar Hyperlipidemia Hypothyroidism Inguinal hernia left and right Insomnia Iron deficiency anemia Left hip pain Low back pain Lumbosacral radiculopathy (11/11/14) [place] (myocardial infarction) 2014 Mild cognitive impairment (05/19/16) Nausea Orthostatic hypotension due to Parkinson's disease (02/09/18) Parkinson disease (03/10/16) Peripheral artery disease Restless leg syndrome (08/08/17) SVT (supraventricular tachycardia) Trochanteric bursitis of left hip Urinary retention Vertigo Surgical History Cardiac cath 2014 Colonoscopy - IV Sedation (07/27/16) LAURENT to RCA x 3 2013 Hernia Repair, Incisional (09/28/16) right femoral x5 History of carpal tunnel surgery of left wrist Incomplete tear of left rotator cuff (02/02/17) s/p repair March 2017 medial facetectomy L4-5 01/30/15 Repair of inguinal hernia RIH repair >50 years ago Repair of umbilical hernia S/P bilateral cataract extraction S/P lumbar spine operation 05/10/19; Dr. Hinojosa Social History/Home Situation: Lives with in a private home with one step to enter. Unable to elaborate further due to confusion. Equipment Owned/DME: Unable to recall Subjective: NT. See most recent CHEST PAINTING LEADER notes. Objective: General Observation: NT. See most recent CHEST PAINTING LEADER notes. Pain: NT. See most recent CHEST PAINTING LEADER notes. Vital Signs: NT. See most recent CHEST PAINTING LEADER notes. ROM: Right Upper Extremity: Shoulder Flexion allows only up to about 90 degrees. Shoulder abduction WFL allows only up to about 90 degrees. Elbow flexion WFL. Wrist flexion WFL. Opening and closing of hand WFL. Left Upper Extremity: Shoulder Flexion allows only up to about 90 degrees. Shoulder abduction WFL allows only up to about 90 degrees. Elbow flexion WFL. Wrist flexion WFL. Opening and closing of hand WFL. Right Lower Extremity: Hip flexion WFL. Hip abduction WFL. Knee flexion WFL. Ankle dorsiflexion to neutral only. Ankle plantarflexion WFL. Left Lower Extremity: Hip flexion WFL. Hip abduction WFL. Knee flexion WFL. Ankle dorsiflexion WFL. Ankle plantarflexion WFL. Strength: Right Upper Extremity: Shoulder flexors 3-/5. Shoulder abductors 3-/5. Elbow flexors 4-/5. Elbow extensors 4-/5. Beef Pluck Trimmer strong. Left Upper Extremity: Shoulder flexors 3-/5. Shoulder abductors 3-/5. Elbow flexors 4-/5. Elbow extensors 4-/5. Beef Pluck Trimmer strong. Right Lower Extremity: Hip flexors 4-/5. Hip abductors 4-/5. Knee flexors 4-/5. Knee extensors 4-/5. Ankle dorsiflexors 3-/5. Ankle plantarflexors 4-/5. Left Lower Extremity: Hip flexors 4-/5. Hip abductors 4-/5. Knee flexors 4-/5. Knee extensors 4-/5. Ankle dorsiflexors 3-/5. Ankle plantarflexors 4-/5. Sensation: Intact as to pain and pressure on bilateral lower extremities. Bed Mobility/Transfers: Rolling supervision Supine to sit supervision Sit to stand contact-guard assist Stand to sit standby assist Bed to chair contact-guard assist Chair to bed contact-guard com Gait: Guided patient through short distance ambulation 150 feet requiring contact guard assist with complaints of pain at 3/10 pain in the right hip and constant dizziness. Mild foot drop seen in R. Balance: Static Sitting: Normal Dynamic Sitting: Normal Static Standing: Fair Dynamic Standing: Fair Assessment: Dayne demonstrates dizziness, confusion, possible visual hallucination, and anxiety that limited mobility assessment. He will require the use of FWW for all transfer and ambulation tasks for safety. Patient continues to present with clinical signs and symptoms consistent with current/admitting diagnoses that have resulted to mobility limitations, gait instability, generalized weakness, and impairment of motor control as demonstrated by the following impairment level findings: 1. Decreased strength to B shoulders, B hips major muscle groups 2. Impaired standing balance 3. Impaired activity tolerance 4. Confusion 5. Dizziness Impairments are continuing to contribute to the following functional limitations: 1. Inability to safely ambulate without assistive device 2. Increase completion time for mobility ADL performance 3. Increased fall risk 4. Inability to negotiate steps alone safely Goals: Goals X1 week 1. Supine-Sit independent NOT MET 2. Sit-Supine independent NOT MET 3. Sit-Stand independent NOT MET 4. Stand-Sit independent NOT MET 5. Bed-Chair independent NOT MET 6. Chair-Bed independent NOT MET 7. Supervision gait on level surface with use of least restrictive device for at least 300 feet without report of pain nor dyspnea NOT MET 8. Supervision stair negotiation while holding onto bilateral rails for at least 10 steps without report of pain nor dyspnea NOT MET 9. Independent with home exercise program NOT MET 10. Good static and dynamic standing balance/tolerance NOT MET Plan of Care/Treatment Plan: 1-2x/day, 7 days/week x 1 week. Plan of care has been reviewed with the CHEST PAINTING LEADER providing the service under Physical Therapy direction. Initiate Physical Therapy intervention for strengthening, bed mobility, transfers, gait, stairs, balance training, use of assistive device. DISCHARGE RECOMMENDATIONS: SNF vs. PT. TREATMENT CODE/TIME: CA Thank you for the opportunity to participate in the care of this patient. Rosalba Santos PT, DPT, CLT [facility] [place], [place]
--- NOTE | 2021-01-13 17:45 | PDOC.MHCN_ITS ---
Date of service: 01/13/21 Time of Service: 17:12 Mental Health Crisis Note Presenting Issue How did you arrive at the ED and why did you come: Patient arrived at [facility] due to back pain, patient started making statements of SI due to the pain. Precipitating Factors Patient stated he is doing good now, and has no pain. Patient denies SI HI and stated I have too much going on for that stupid shit Patient discussed future plans of planting his garden this spring and snow shoeing with his grandchildren. Patient will go home once medically cleared for back pain. Disposition BEHAVIOR: cooperative EYE CONTACT: okay MOOD: calm AFFECT: flat APPETITE: comes and goes (typical for patient) SLEEP(trouble falling/staying asleep: good Plan Patient will remain at [facility] until medically cleared. Signature Clinician's Name/Title: Refugio AGUIRRE
--- NOTE | 2021-01-13 19:22 | INITIAL_ITS ---
- If Service Date Differs Date of service: 01/13/21 Time of Service: 19:22 Care Management Initial Assess REASON FOR HOSPITALIZATION:: Back Pain PAST MEDICAL HISTORY/PAST SURGICAL HISTORY:: Medical History. ADD (attention deficit disorder). Anxiety. Arthralgia of left acromioclavicular joint (02/02/17). Atrophy of right hand muscles (03/10/16). Blood glucose elevated. BPH (benign prostatic hyperplasia). CAD (coronary artery disease). Claudication. bilateral. Constipation due to slow transit (03/10/16). Contracture of hand. Depression. Dizziness. History of ST elevation myocardial infarction (STEMI). 2013-F/U with cardiology Dr. Salazar. Hyperlipidemia. Hypothyroidism. Inguinal hernia. left and right. Insomnia. Iron deficiency anemia. Left hip pain. Low back pain. Lumbosacral radiculopathy (11/11/14). [place] (myocardial infarction). 2014. Mild cognitive impairment (05/19/16). Nausea. Orthostatic hypotension due to Parkinson's disease (02/09/18). Parkinson disease (03/10/16). Peripheral artery disease. Restless leg syndrome (08/08/17). SVT (supraventricular tachycardia). Trochanteric bursitis of left hip. Urinary retention. Vertigo. Surgical History. Cardiac cath. 2013. Colonoscopy - IV Sedation (07/27/16). LAURENT to RCA x 3. 2013. Hernia Repair, Incisional (09/28/16). right femoral. x5. History of carpal tunnel surgery of left wrist. Incomplete tear of left rotator cuff (02/02/17). s/p repair March 2017. medial facetectomy L4-5. 01/30/15. Repair of inguinal hernia. [facility] repair >50 years ago. Repair of umbilical hernia. S/P bilateral cataract extraction. S/P lumbar spine operation. 05/10/19; Dr. Hinojosa PREVIOUS FUNCTIONAL STATUS/SOCIAL/FAMILY SUPPORTS:: Dayne lives in [place] with his , Maite. He has two daughters, Mary and Ghislaine. 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 He suffers from chronic pain, but is independent with ADL's. CURRENT FUNCTIONAL STATUS:: Dayne was lying in bed when CM met with him. He made eye contact with CM, but did not engage in conversation. CM attempted having a conversation, but Dayne did not respond. While in the room, Dayne began to pull at his IV, and CM asked him not to pull on it multiple times. After asking him to stop 3 times, Dayne stated I heard you the first time. Later, he made statements implying that he may end his life if he does not receive help for his pain on this admission. The provider ordered a mental health emergency screening, in which he was cleared. He reported that he was feeling hopeless and had thoughts of self harm, but no plan for suicide at this time. CM informed the provider that he is cleared by [facility], and does not require suicide precautions at this time. CM will continue to follow. ADVANCE DIRECTIVES:: None on file. CM will offer forms. Has patient been provided with info about the portal/API?: Yes Did the patient sign up for the portal?: Yes (previously) CODE STATUS:: Full Code INSURANCE COVERAGE / FINANCIAL ISSUES:: [facility]/ BCBS CURRENT HOME/COMMUNITY SERVICES/EQUIPMENT:: No current services or equipment known at this time. PRIMARY CARE PHYSICIAN:: Margaret Jorge POTENTIAL DISCHARGE NEEDS:: Evaluations for further needs, follow up appointments. PATIENT/FAMILY EDUCATION NEEDS:: Review discharge instructions regarding activity levels and medications, discussion of self care needs and goals of care. ANTICIPATED BARRIERS TO DISCHARGE:: None identified at this time. TRANSPORTATION:: Via private vehicle by family. PLAN:: Anticipate Dayne will return home when medically cleared. His will drive him home via private vehicle. He will follow up with his PCP and discharge plan of care. CM will continue to follow.
[2021-01-13] MEDS: Atorvastatin 40 MG TAB 80 MG PO (20:43)
[2021-01-13] MEDS: Famotidine 20 MG TAB 40 MG PO (20:43)
[2021-01-13] MEDS: Senna TAB 2 TAB PO (20:45)
[2021-01-13 23:28] VITALS: BP 180/92; PULSE 92; RESP 19; TEMP 36.8; O2SAT 97
[2021-01-14] MEDS: LORazepam 2 MG/ML VIAL 0.5 MG IVP (01:14)
--- NOTE | 2021-01-14 04:26 | NUR.NOTE ---
Nursing Note: 0114H Patient was restless, pacing in the room. Patient not aware of iv line attached and walking impulsively. Patient Using inappropriate language to all staff. Banging bathroom door. Patient starts walking in the hallway and trying to get in to other patient's room, ICU and pantry. CC informed, MD informed. CPSO assigned. Will give STAT medication as ordered. Will continue to monitor
[2021-01-14] MEDS: Levothyroxine 88 MCG TAB PO (05:34)
[2021-01-14] MEDS: Ketorolac 30 MG/ML VIAL IVP (05:34)
[2021-01-14 07:33] LABS: Abs Immature Grans 0.02 10^3/uL (0.0-0.06); Absolute Basophil Count 0.04 10^3/uL (0.0-0.2); Absolute Eosinophil Count 0.06 10^3/uL (0.0-0.7); Absolute Lymphocyte Count 0.85 10^3/uL (1.2-3.4); Absolute Monocyte Count 0.45 10^3/uL (0.1-0.8); Absolute Neutrophil Count 5.06 10^3/uL (1.2-6.7); Basophils % 0.6; Eosinophils % 0.9; Immature Grans % 0.3; Lymphocytes % 13.1; MCH 29.8 pg (27.0-33.0); MCHC 33.3 % (32.0-36.0); MCV 89.4 fL (80-95); MPV 10.4 fL (8.0-11.0); Monocytes % 6.9; Neutrophils % 78.2; Nucleated RBC 0 %; Platelet Count 199 10^3/uL (130-400); RBC 4.36 10^6/uL (4.36-5.78); RDW 12.2 % (11.8-14.1); RDW-SD 40.3 fL; WBC 6.48 10^3/uL (4.4-10.8)
[2021-01-14 07:45] LABS: Anion Gap 10.1 mmol/L (3-11); BUN 17 mg/dL (7-18); CO2 23.9 mmol/L (21.0-32.0); CREATININE 1.1 mg/dL (0.70-1.30); Calcium 8.5 mg/dL (8.5-10.1); Chloride 105 mmol/L (98-107); Glucose 94 mg/dL (74-106); Sodium 139 mmol/L (136-145)
[2021-01-14] MEDS: Sertraline 50 MG TAB 200 MG PO (08:48)
[2021-01-14] MEDS: Loratidine 10 MG TAB PO (08:48)
[2021-01-14] MEDS: Aspirin 81 MG CHEW PO (08:48)
[2021-01-14] MEDS: Baclofen 10 MG TAB PO (08:48)
[2021-01-14] MEDS: Clopidogrel 75 MG TAB PO (08:48)
[2021-01-14] MEDS: Acetaminophen 500 MG TAB 1000 MG PO (08:48)
[2021-01-14] MEDS: Carbidopa 25/Levodopa 100 TAB PO ×2 (08:48→12:04)
[2021-01-14] MEDS: Gabapentin 600 MG TAB PO ×2 (08:48→12:04)
[2021-01-14 09:02] VITALS: BP 170/80; PULSE 79; RESP 19; TEMP 37.1; O2SAT 96
[2021-01-14] MEDS: Ferrous Gluconate 324 MG TAB PO (10:06)
[2021-01-14] MEDS: LORazepam 0.5 MG TAB PO (10:07)
--- NOTE | 2021-01-14 11:10 | W.PM.DS.N ---
Date of service: 01/14/21 Time of Service: 11:11 DS: Diagnosis Discharge Diagnosis (1) Suicidal ideation: Status: Acute (2) Low back pain: Status: Acute (3) CAD (coronary artery disease): Status: None (4) Parkinson disease: Status: Acute (5) Mild cognitive impairment: Status: Acute Discharge Plan Disposition Patient Disposition: HOME W/HOME HEALTH SERVICE Condition: Improving Discharge Details Reason For Visit: BACK PAIN Admit Date/Time: 01/13/21 14:54 Admit Provider: Vasile Castellanos Attending Provider: Vasile Castellanos Primary Care Provider: Margaret Jorge [facility] Course Hospital Course: This is a 75 year old man with a past medical history significant for parkinson's disease, RLS, anxiety, CAD with AL, PAD, hypotension, and back pain who is followed by Neurosurgeon at [facility]. He presented to the ED with reports of worsening low back pain. He had an MRI 3 weeks ago, which was reviewed by his surgeon at [facility] Neurosurgery and discussed with the ED attending provider. He is followed by Dr. Hinojosa. His surgeon does not recommend urgent surgical intervention at this time. Rather, he recommended admission here for pain control and possible repeat MRI. He was given decadron 4 mg IV and fentanyl in the ED. He is admitted to the med/surg floor for further evaluation and management. He was placed on IR morphine after declining oxycodone, which provided good pain relief. He was seen by PT and reamublated. They recommend ongoing PT/OT at home. He experienced some confusion while hospitalized and was able to be oriented/redirected. His is likely d/t combination of narcotics on mild cognitive impairment worsened out of his environment. He had no behavioral issues. Today he is stable and denies pain. case management has been following and plan is to discharge home with home health services including PT/OT and nursing. discharge plan discussed with DR Castellanos. Home Meds and New Rx's Prescriptions: New morphine 15 mg Tablet 7.5 mg PO QID PRN (Reason: severe pain) Qty: 12 RF: 0 Continued docusate sodium 100 mg tablet 100 mg PO TID RF: 0 loratadine [Claritin] 10 mg tablet 10 mg PO DAILY RF: 0 entacapone 200 mg tablet 200 mg PO QID Qty: 360 RF: 3 senna 8.6 mg capsule 17.2 mg PO QHS RF: 0 alfuzosin 10 mg tablet extended release 24 hr 10 mg PO DAILY RF: 0 clopidogrel [Plavix] 75 mg tablet 75 mg PO DAILY RF: 0 gabapentin 600 mg tablet 600 mg PO QID RF: 0 ferrous gluconate 256 mg (28 mg iron) tablet 256 mg PO DAILY RF: 0 carbidopa-levodopa 25-100 mg tablet extended release 1 tab PO QHS Qty: 90 RF: 3 sertraline [Zoloft] 100 MG tablet 200 mg PO DAILY RF: 0 solifenacin [Vesicare] 5 MG tablet 5 mg PO DAILY RF: 0 levothyroxine 50 mcg tablet 88 mcg PO DAILY RF: 0 nitroglycerin [Nitrostat] 0.4 MG tablet, sublingual 0.4 mg Sublingual PRN PRNRF: 0 atorvastatin [Lipitor] 80 mg tablet 80 mg PO HS RF: 0 ibuprofen [Ibuprofen IB] 200 MG tablet 600 mg PO TID PRNRF: 0 baclofen 10 mg tablet 10 mg PO HS RF: 0 ergocalciferol (vitamin D2) 1,000 unit Tablet 5,000 tab PO DAILY RF: 0 psyllium husk [Metamucil] 0.52 gram Capsule 0.52 - 1.04 g PO DAILY RF: 0 carbidopa-levodopa 25-100 mg tablet 1 tab PO QID RF: 0 Tumeric 1 cap PO DAILY RF: 0 acetaminophen [Acetaminophen Extra Strength] 500 MG tablet 1,000 mg PO TID Qty: 180 RF: 0 aspirin [Aspirin Low-Strength] 81 MG tablet,chewable 81 mg PO DAILY RF: 0 famotidine [Pepcid] 40 mg tablet 40 mg PO QHS Qty: 90 RF: 0 Discontinued hydrocodone-acetaminophen 5-325 mg tablet 1 tab PO TID RF: 0 Discharge Instructions Instructions: Chronic Back Pain (DC) Additional Instructions: take medication as prescribed only. keep follow up appointments scheduled with pain clinic and neurosurgery. Stand Alone Forms: Nursing Discharge Form Referrals: Margaret Jorge [Primary Care Provider] - 01/29/21 9:30 am Activity:: Activity as Tolerated Equipment/Supplies:: Walker Diet:: As Tolerated Discharge Orders Discharge Orders: Discharge Order (Routine); Ordered 01/14/21 Ordered By: Angle Yun DS: Summary Time Spent with Patient providing and/or coordinating discharge services: Greater than 30 minutes Status at Discharge Functional status at discharge: uses cane/walker Overall status at discharge: patient is progressing back to baseline Mental Status: mental status grossly normal Speech and Movement: speech and movement normal Mood: congruent mood Affect: normal affect Exam Narrative Exam Narrative: General: 75 year old man, appears older than stated age, laying in bed, appears comfortable, facial tremors. HEENT: Normocephalic, atraumatic, makes good eye contact, pupils equal and round, mucous membranes slightly dry. Neck: Supple, no JVD. Cardiovascular: Heart sounds regular, rhythm regular Respiratory: respirations even and unlabored, lung sounds clear throughout. GI: soft, nontender on palpation, nondistended, +BS. Extremities: moves all 4 extremities freely, no edema. Psych Mental Status: mental status grossly normal Speech and Movement: speech and movement normal Mood: congruent mood Affect: normal affect DS: Data Vitals/I&O Vitals and I&O: Vital Signs Temperature 37.1 C 01/14/21 09:02 Temperature Source Tympanic 01/14/21 09:02 Pulse 79 01/14/21 09:02 Pulse Rhythm Regular 01/14/21 04:59 Respiratory Rate 19 01/14/21 09:02 Respiratory Effort 01/14/21 04:59 Respiratory Depth Normal 01/14/21 04:59 Respiratory Pattern Normal 01/12/21 14:13 Blood Pressure 170/80 H 01/14/21 09:02 Blood Pressure Position Supine 01/12/21 10:45 Pulse Oximetry 96 01/14/21 09:02 Oxygen Delivery Method Room Air 01/14/21 09:02 Oxygen Flow Rate 0 01/14/21 09:02 Pain Level 5 01/13/21 21:43 Comment 01/12/21 10:45 Intake & Output 01/13/21 01/13/21 01/14/21 11:59 23:59 11:59 Intake Total 1727.333 / 3927.333 2200 / 3927.333 721.333 / 721.333 Output Total 800 / 1400 600 / 1400 1100 / 1100 Balance 927.333 / 2527.333 1600 / 2527.333 -378.667 / -378.667 Intake: IV 937.333 / 2937.333 2000 / 2937.333 721.333 / 721.333 Oral 790 / 990 200 / 990 Output: Urine 800 / 1400 600 / 1400 1100 / 1100 Other: Urine Color Straw Yellow Yellow Urine Appearance Clear Clear Clear Urine Odor Normal Comment no hat unable to collect Voiding Methods Toilet Toilet Toilet Data Completed and Pending Labs on day of discharge: Labs from last 24 hours 01/14/21 01/14/21 06:32 06:32 WBC 6.48 RBC 4.36 Hgb 13.0 L Hct 39.0 L MCV 89.4 MCH 29.8 MCHC 33.3 RDW 12.2 Plt Count 199 MPV 10.4 Immature Gran % 0.3 Neutrophils % 78.2 Lymphocytes % 13.1 Monocytes % 6.9 Eosinophils % 0.9 Basophils % 0.6 Nucleated RBC % 0 Absolute Neutrophils 5.06 Absolute Lymphocytes 0.85 L Absolute Monocytes 0.45 Absolute Eosinophils 0.06 Absolute Basophils 0.04 Sodium 139 Potassium 4.0 Chloride 105 Carbon Dioxide 23.9 Anion Gap 10.1 BUN 17 Creatinine 1.1 Estimated GFR/1.73 m2 >= 60.00 Glucose 94 Calcium 8.5 PFSH Medical History ADD (attention deficit disorder) Anxiety Arthralgia of left acromioclavicular joint (02/02/17) Atrophy of right hand muscles (03/10/16) Blood glucose elevated BPH (benign prostatic hyperplasia) CAD (coronary artery disease) Claudication bilateral Constipation due to slow transit (03/10/16) Contracture of hand Depression Dizziness History of ST elevation myocardial infarction (STEMI) 2014-F/U with cardiology Dr. Salazar Hyperlipidemia Hypothyroidism Inguinal hernia left and right Insomnia Iron deficiency anemia Left hip pain Low back pain Lumbosacral radiculopathy (11/11/14) [place] (myocardial infarction) 2014 Mild cognitive impairment (05/19/16) Nausea Orthostatic hypotension due to Parkinson's disease (02/09/18) Parkinson disease (03/10/16) Peripheral artery disease Restless leg syndrome (08/08/17) SVT (supraventricular tachycardia) Trochanteric bursitis of left hip Urinary retention Vertigo Surgical History Cardiac cath 2014 Colonoscopy - IV Sedation (07/27/16) LAURENT to RCA x 3 2014 Hernia Repair, Incisional (09/28/16) right femoral x5 History of carpal tunnel surgery of left wrist Incomplete tear of left rotator cuff (02/02/17) s/p repair March 2017 medial facetectomy L4-5 01/30/15 Repair of inguinal hernia RIH repair >50 years ago Repair of umbilical hernia S/P bilateral cataract extraction S/P lumbar spine operation 05/10/19; Dr. 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
--- NOTE | 2021-01-14 11:23 | PDOC.HHF2F ---
Home Health Certification Home Health Certification: 1. Encounter Date and Reason I certify that ISABELLE ZAMORA was seen by Angle Yun on 01/14/21 and that I had a [id number] encounter with this patient that meets the physician face to face encounter requirements. 2. Clinical Findings Supporting Skilled Need and Homebound Status I certify that home health services are medically necessary, include either intermittent intermediate and/or physical/speech therapy, and that this patient is homebound in that absences from the home require considerable and taxing effort and are infrequent or of short duration, or are attributable to the need to receive medical care. [X] (a) Attached documentation from encounter provides clinical findings supporting skilled need and homebound status (including what assistance patient requires to leave the home). The encounter with the patient was in whole, or in part, for the following medical condition, which is the primary reason for home health care: BACK PAIN Mcfp: routine nursing for evaluation, medication oversight, pain management Physical and occupational Therapy: routine evaluation and treatment Homebound: patient is unable to safely leave his house unassisted d/t unsteady gait, uncontrolled pain, new assistive device for ambulation, mild cognitive impairment 3. Certification and Authentication I certify that I composed the above information based on my clinical judgement relating to this patient's medical condition and, if applicable, clinical findings communicated to me by the NPP or inpatient physician who performed the Home Health Referral. All further orders will be obtained through (Community Based Physician - PCP)
--- NOTE | 2021-01-14 12:11 | NUR.NOTE ---
Nursing Note: 0545H Patient pulled out IV. This is 3rd time patient pulled out IV. Patient restless and impulsive at this time. MD informed. MD gave verbal to hold IV fluids and IV medication. CC informed. Will continue to monitor
--- NOTE | 2021-01-14 12:51 | NUR.NOTE ---
called to let her know of discharge order. Patients will be at the hospital at 1300 for pickup. Nursing Note:
--- NOTE | 2021-01-14 14:31 | PDOC.CMDIS ---
- If Service Date Differs Date of service: 01/14/21 Time of Service: 14:31 LACE Index Scoring Tool - Questions: Length of Stay (in days): 2 Acuity (Admit via E.D.?): Yes Comorbidities: Previous M.I. E.D. Visits: 1 - Answers: Total Score: 7 Risk of Readmission: Low Risk Care Management Discharge Reason for Hospitalization: Back Pain Discharge Plan: Dayne will return home with new orders for HH RN, PT, OT. His will drive him home via private vehicle when ready. He walked with PT today, and did report some pain, but otherwise he is not complaining of pain with staff. PT recommended a FWW, which was provided through [facility]. He will follow up with his PCP and discharge plan of care. He is agreeable to returning home. Patient/Family Education Needs: Review discharge instructions regarding activity levels and medications, discussion of self care needs and goals of care. Services Needed at Discharge: Home Health Care Services (new HH RN, PT, OT)
--- NOTE | 2021-01-14 14:40 | PT.INTREAT ---
Date of service: 01/14/21 Time of Service: 10:30 PT Notes Visit Reasons: BACK PAIN Inpatient Physical Therapy Treatment Note [facility] Date: 01/14/2021 PRECAUTIONS: Fall, LBP SUBJECTIVE: Dayne is pleasant and agreeable to participating in PT. He reports that he is having back pain currently. He states that he would like to go home today. OBJECTIVE: PAIN: Patient c/o R LE pain with gait training BED MOBILITY/TRANSFERS Supine-sit: S Sit-supine: S Sit-stand: SBA Stand-sit: SBA GAIT Assistive Device: FWW Weight bearing: Full Assist: CGA Distance: 60' Deviation: Increased pain, cueing for weight bearing through UEs for offloading LEs for pain management. ASSESSMENT: Patient complained of R LE pain with gait training. He was limited with gait training due to pain. He requires cueing for FWW mechanics for offloading LEs using FWW and UEs for pain management. PLAN: Continue with global strengthening and gait training for improved mobility and activity tolerance via PT upon discharge. TREATMENT CODE/TIME: 10 minutes; 48870 (10:30)
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
== END 2021-01-14 13:00 | disposition home health service (06) | DRG 552 ==
LOC: ER 13:26 → MS 13:50
PROVIDERS: Nurse Practitioner; Nurse Practitioner Acute Care; Admitting Provider Family Medicine; Emergency Provider Physician Assistant; PCP Nurse Practitioner Family; Visit Provider Family Medicine
DX: M54.5 Low back pain (principal); R45.851 Suicidal ideations; I47.1 Supraventricular tachycardia; I25.10 Atherosclerotic heart disease of native coronary artery without angina pectoris; G20 Parkinson's disease; G31.84 Mild cognitive impairment of uncertain or unknown etiology; G25.81 Restless legs syndrome; F41.9 Anxiety disorder, unspecified; I25.2 Old myocardial infarction; F98.8 Other specified behavioral and emotional disorders with onset usually occurring in childhood and adolescence; R73.9 Hyperglycemia, unspecified; N40.0 Benign prostatic hyperplasia without lower urinary tract symptoms; I73.9 Peripheral vascular disease, unspecified; K59.01 Slow transit constipation; F32.9 Major depressive disorder, single episode, unspecified; E78.5 Hyperlipidemia, unspecified; E03.9 Hypothyroidism, unspecified; D50.9 Iron deficiency anemia, unspecified; R33.9 Retention of urine, unspecified; M51.17 Intervertebral disc disorders with radiculopathy, lumbosacral region; M48.07 Spinal stenosis, lumbosacral region
CPT/HCPCS: 36415; 80048; 80053; 85027; 87635; 96374; 96375; 97530; 99222; 99233; 99239; 99285; J1650; 81003; 81015; 85025; 86140; 93005; 93010; 99219; 99284; G0378; J1100; J1885; J2060; J2270; J2405; J3010

== ENCOUNTER 2021-01-14 13:17 | Emergency (ER) | payer MEDICARE, BC, SELFPAY ==
[2021-01-14 13:29] VITALS: BP 146/84; PULSE 86; RESP 16; TEMP 36.8; O2SAT 97
--- NOTE | 2021-01-14 13:35 | ED.GENADUL_ITS ---
Discharge Plan Disposition Patient Disposition: HOME Condition: Stable Discharge Details Clinical Impression: Lumbosacral radiculopathy Primary Care Provider: Margaret Jorge ED Provider: Vahe Hopper Home Meds and New Rx's Prescriptions: Continued docusate sodium 100 mg tablet 100 mg PO TID RF: 0 loratadine [Claritin] 10 mg tablet 10 mg PO DAILY RF: 0 entacapone 200 mg tablet 200 mg PO QID Qty: 360 RF: 3 senna 8.6 mg capsule 17.2 mg PO QHS RF: 0 alfuzosin 10 mg tablet extended release 24 hr 10 mg PO DAILY RF: 0 clopidogrel [Plavix] 75 mg tablet 75 mg PO DAILY RF: 0 gabapentin 600 mg tablet 600 mg PO QID RF: 0 ferrous gluconate 256 mg (28 mg iron) tablet 256 mg PO DAILY RF: 0 carbidopa-levodopa 25-100 mg tablet extended release 1 tab PO QHS Qty: 90 RF: 3 sertraline [Zoloft] 100 MG tablet 200 mg PO DAILY RF: 0 solifenacin [Vesicare] 5 MG tablet 5 mg PO DAILY RF: 0 levothyroxine 50 mcg tablet 88 mcg PO DAILY RF: 0 nitroglycerin [Nitrostat] 0.4 MG tablet, sublingual 0.4 mg Sublingual PRN PRNRF: 0 atorvastatin [Lipitor] 80 mg tablet 80 mg PO HS RF: 0 ibuprofen [Ibuprofen IB] 200 MG tablet 600 mg PO TID PRNRF: 0 baclofen 10 mg tablet 10 mg PO HS RF: 0 ergocalciferol (vitamin D2) 1,000 unit Tablet 5,000 tab PO DAILY RF: 0 psyllium husk [Metamucil] 0.52 gram Capsule 0.52 - 1.04 g PO DAILY RF: 0 carbidopa-levodopa 25-100 mg tablet 1 tab PO QID RF: 0 Tumeric 1 cap PO DAILY RF: 0 morphine 15 mg Tablet 7.5 mg PO QID PRN (Reason: severe pain) Qty: 12 RF: 0 acetaminophen [Acetaminophen Extra Strength] 500 MG tablet 1,000 mg PO TID Qty: 180 RF: 0 aspirin [Aspirin Low-Strength] 81 MG tablet,chewable 81 mg PO DAILY RF: 0 famotidine [Pepcid] 40 mg tablet 40 mg PO QHS Qty: 90 RF: 0 Discharge Instructions Instructions: Acute Low Back Pain (ED) Additional Instructions: Please follow the instructions given to you at your time of discharge from your 2-day hospital admission earlier today. Morphine as directed, may cause drowsiness and/or constipation. You may want to take [id number] stool softeners while taking this medication. Gentle stretching as tolerated. Cool and/or warm compresses every 2 hours for 20 minutes. Please watch for new or worsening symptoms and return to the ER for any concerns. I would like you to contact both your primary care provider and your back specialist later today to discuss your ongoing discomfort and outpatient reevaluation Medical Decision Making 75-year-old gentleman, pathological history of chronic back pain, status post lumbar spine surgery, recent 2-day hospital stay for exacerbation of his chronic pain, discharged less than 2 hours ago, presents to the ER with his via private car for pain control. Patient states that sitting in the car made his pain worse, unable to tolerate ride home. Clinically he appears well, nontoxic, is neurologically intact. I had a transparent conversation with patient and family about realistic expectations. They feel as though he can safely be discharged home with outpatient follow-up as already planned however would like additional analgesia now to get him home more comfortably. I see no dictation to repeat laboratory values, he did have a recent MRI, no evidence of neurologic compromise, no need for emergent MRI today. Will provide a single dose of IM Dilaudid and reassess. Patient given a single dose of IM Dilaudid, 1 mg. Upon reassessment patient was able to ambulate steadily, remains neurologically intact. Reports pain is greatly improved. I discussed plan of disposition with his , she is comfortable taking him home in his current condition. Encouraged to watch for new or worsening symptoms and return to the ER for any concerns, otherwise take morphine as directed. They will contact their back team to see if perhaps they can be seen sooner, otherwise contact her primary care provider. Medical Records Medical records reviewed: Yes I reviewed the patient's medical records. HPI General Mode of arrival: ambulatory . Date/Time Provider Initiated Documentation: 01/14/21 13:20 . Limitations to Documentation: altered mental status (Mild cognitive impairment) . Information obtained by: patient and family . HPI Narrative: This is a 75-year-old gentleman, past medical history of anxiety, BPH, CAD, depression, hypothyroidism, anemia, chronic low back pain with radiculopathy, PA, Parkinson's with mild cognitive impairment, presenting to the ER via private vehicle with his . Patient was admitted to our facility on 01-12-21, discharged less than 2 hours ago. Patient reports that he was feeling well however the drive home caused increased pain. His is unsure what to do so turned around and came back to the ER. Denies any recent illness or trauma. Patient was discharged after 2-day stay here in the hospital, his back specialty team was consulted, MRI 3 weeks ago, has an appointment in February as an ou tpatient. Upon discharge he had been evaluated by physical therapy. Patient has a prescription for morphine but has not filled it yet. Reports the pain was severe in the vehicle however now is more moderate when lying flat, worse with movement. Denies fever, numbness, tingling, weakness, incontinence. No additional concerns or questions. Primary concern is that of chronic back pain with acute exacerbation of pain and only limited control. states that his cognitive status has declined over several weeks and does appear to be worse when taking narcotic medication. Upon reviewing his medical record, this seems to be confirmed during his 2-day hospital stay Related Data Home Medications Medication Instructions Recorded Confirmed nitroglycerin [Nitrostat] 0.4 mg SUBLINGUAL PRN PRN 11/23/13 01/14/21 sertraline [Zoloft] 200 mg PO DAILY tab-cap 10/28/14 01/14/21 solifenacin [Vesicare] 5 mg PO DAILY tab-cap 01/05/17 01/14/21 acetaminophen [Acetaminophen Extra 1,000 mg PO TID #180 tab 03/31/17 01/14/21 Strength] ibuprofen [Ibuprofen IB] 600 mg PO TID PRN 04/30/17 01/14/21 aspirin [Aspirin Low-Strength] 81 mg PO DAILY 06/28/17 01/14/21 docusate sodium 100 mg PO TID 03/19/19 01/14/21 levothyroxine 50 mcg tablet 88 mcg PO DAILY tab-cap 07/12/19 01/14/21 loratadine 10 mg tablet 10 mg PO DAILY 03/05/20 01/14/21 atorvastatin 80 mg tablet 80 mg PO HS 08/21/20 01/14/21 entacapone 200 mg tablet 200 mg PO QID #360 tab 08/21/20 01/14/21 alfuzosin 10 mg tablet,extended 10 mg PO DAILY 11/18/20 01/14/21 release 24 hr carbidopa ER 25 mg-levodopa 100 mg 1 tab PO QHS #90 tab 11/18/20 01/14/21 tablet,extended release clopidogrel 75 mg tablet 75 mg PO DAILY 11/18/20 01/14/21 ferrous gluconate 256 mg (28 mg 256 mg PO DAILY 11/18/20 01/14/21 iron) tablet gabapentin 600 mg tablet 600 mg PO QID tab 11/18/20 01/14/21 sennosides 8.6 mg capsule 17.2 mg PO QHS 11/18/20 01/14/21 famotidine [Pepcid] 40 mg PO QHS #90 tab 11/26/20 01/14/21 Tumeric 1 cap PO DAILY 01/12/21 01/14/21 baclofen 10 mg PO HS 01/12/21 01/14/21 carbidopa-levodopa 1 tab PO QID 01/12/21 01/14/21 ergocalciferol (vitamin D2) 5,000 tab PO DAILY 01/12/21 01/14/21 psyllium husk [Metamucil] 0.52 - 1.04 g PO DAILY 01/12/21 01/14/21 morphine 7.5 mg PO QID PRN #12 tab 01/14/21 01/14/21 Previous Rx's Medication Instructions Recorded acetaminophen [Acetaminophen Extra 1,000 mg PO TID #180 tab 03/31/17 Strength] entacapone 200 mg tablet 200 mg PO QID #360 tab 08/21/20 carbidopa ER 25 mg-levodopa 100 mg 1 tab PO QHS #90 tab 11/18/20 tablet,extended release famotidine [Pepcid] 40 mg PO QHS #90 tab 11/26/20 morphine 7.5 mg PO QID PRN #12 tab 01/14/21 Allergies Allergy/AdvReac Type Severity Reaction Status Date / Time mirabegron [From Myrbetriq] Allergy Mild unknown Verified 01/12/21 11:15 finasteride AdvReac Severe Hypotension Verified 01/12/21 11:15 General Stated Complaint: Nk/Back Pain MARTIN: 4 Review of Systems Constitutional Constitutional: Denies fever(s), Denies headache(s) and Denies weakness ENT Ears, Nose, Mouth, and Throat: Denies headache(s) Cardiovascular Cardiovascular: Denies chest pain and Denies dyspnea Respiratory Respiratory: Denies cough and Denies dyspnea Gastrointestinal Gastrointestinal: Denies abdominal pain, Denies constipation, Denies fecal incontinence, Denies nausea and Denies vomiting Genitourinary Genitourinary: Denies urinary incontinence Musculoskeletal Musculoskeletal: Reports back pain, Denies numbness and Denies tingling Integumentary/Breasts Skin/Breast: Denies rash Neurologic Neurologic: Denies headache(s), Denies numbness, Denies tingling and Denies weakness [facility] Medical History ADD (attention deficit disorder) Anxiety Arthralgia of left acromioclavicular joint (02/02/17) Atrophy of right hand muscles (03/10/16) Blood glucose elevated BPH (benign prostatic hyperplasia) CAD (coronary artery disease) Claudication bilateral Constipation due to slow transit (03/10/16) Contracture of hand Depression Dizziness History of ST elevation myocardial infarction (STEMI) 2014-F/U with cardiology Dr. Salazar Hyperlipidemia Hypothyroidism Inguinal hernia left and right Insomnia Iron deficiency anemia Left hip pain Low back pain Lumbosacral radiculopathy (11/11/14) PA (myocardial infarction) 2014 Mild cognitive impairment (05/19/16) Nausea Orthostatic hypotension due to Parkinson's disease (02/09/18) Parkinson disease (03/10/16) Peripheral artery disease Restless leg syndrome (08/08/17) SVT (supraventricular tachycardia) Trochanteric bursitis of left hip Urinary retention Vertigo Surgical History Cardiac cath 2014 Colonoscopy - IV Sedation (07/27/16) LAURENT to RCA x 3 2014 Hernia Repair, Incisional (09/28/16) right femoral x5 History of carpal tunnel surgery of left wrist Incomplete tear of left rotator cuff (02/02/17) s/p repair March 2017 medial facetectomy L4-5 01/30/15 Repair of inguinal hernia RIH repair >50 years ago Repair of umbilical hernia S/P bilateral cataract extraction S/P lumbar spine operation 05/10/19; Dr. 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 Current gender identity: male What is your relationship status?: Panel score (0-1 are the most socially isolated patients): 1 What type of physical activity do you participate in: walking and additional Details: WORKS ON THE [email or web address] and yard work Do you feel safe at home: Yes Do you feel safe in your relationship?: Yes Exam Const General: cooperative, healthy appearing, comfortable and no acute distress Orientation: alert, awake, oriented to person, oriented to place and confused (Unsure of the exact date) [facility] Head: normal to inspection, normocephalic and atraumatic Eyes General: appearance normal, both eyes and all related structures Conjunctivae: conjunctivae normal Sclera: sclerae normal Neck Neck: normal visual inspection, full ROM, no meningeal signs, trachea midline, supple and nontender Resp Effort & Inspection: normal respiratory effort and able to speak in complete sentences Auscultation: clear to auscultation bilaterally Cardio Rate: regular rate Rhythm: regular rhythm GI Palpation: soft, not firm, no guarding, no pulsatile masses and nontender Auscultation: normal bowel sounds Back/Spine/Pelvis Back: no CVA tenderness and back tenderness (Diffuse mild left lower lumbar discomfort) Thoracic/Lumbar Spine: straight leg raise negative bilaterally and No thoraco- lumbar spasm Skin General skin exam: no rashes or lesions noted Neuro General: patient alert, patient awake, moves all extremities and no focal motor deficits Cognition: normal cognition Speech: speech normal Gait: normal gait Motor: muscle tone normal throughout and strength 5/5 throughout Sensory Exam: no sensory deficits noted Extrem General: normal to inspection, full ROM, capillary refill normal, no pedal edema and no calf tenderness Psych Appearance: grossly normal Mental Status: mental status grossly normal Course Vital Signs Vital signs: Vital Signs Temperature 36.8 C 01/14/21 13:29 Pulse 86 01/14/21 13:29 Respiratory Rate 16 01/14/21 13:29 Blood Pressure 146/84 H 01/14/21 13:29 Pulse Oximetry 97 01/14/21 13:29 Temperature 36.8 C 01/14/21 13:29 Temperature Source Skin 01/14/21 13:29 Pulse 86 01/14/21 13:29 Respiratory Rate 16 01/14/21 13:29 Respiratory Effort 01/14/21 13:34 Blood Pressure 146/84 H 01/14/21 13:29 Blood Pressure Position Sitting 01/14/21 13:29 Pulse Oximetry 97 01/14/21 13:29 Oxygen Delivery Method Room Air 01/14/21 13:29 Oxygen Flow Rate 0 01/14/21 13:29 Pain Level 10 01/14/21 13:29
[2021-01-14] MEDS: HYDROmorphone 2 MG/ML VIAL 1 MG IM (14:02)
== END 2021-01-14 14:35 | disposition home or self-care (01) ==
PROVIDERS: Emergency Provider Physician Assistant; PCP Nurse Practitioner Family
DX: M54.17 Radiculopathy, lumbosacral region (principal)
CPT/HCPCS: 96372; 99284; 99283

== ENCOUNTER 2021-01-21 14:10 | Outpatient (REF) | payer MEDICARE, BC, SELFPAY ==
[2021-01-22 01:37] LABS: COVID-19 RT-PCR UVMMC Result Negative (Negative)
== END 2021-01-21 14:11 | disposition home or self-care (01) ==
LOC: NCHCN 14:10
PROVIDERS: PCP Nurse Practitioner Family; Visit Provider Nurse Practitioner Family
DX: Z20.822 Contact with and (suspected) exposure to COVID-19 (principal)
CPT/HCPCS: U0003

== ENCOUNTER → 2021-01-29 13:59 | Outpatient (BNVA) | payer MEDICARE, BC, SELFPAY | PROVIDERS: PCP Nurse Practitioner Family; Referring Provider Nurse Practitioner Family; Visit Provider Internal Medicine Cardiovascular Disease | DX: I25.10 Atherosclerotic heart disease of native coronary artery without angina pectoris (principal); Z95.5 Presence of coronary angioplasty implant and graft; I25.2 Old myocardial infarction; I73.9 Peripheral vascular disease, unspecified; G20 Parkinson's disease | CPT/HCPCS: 99442; 99213 ==

== ENCOUNTER → 2021-02-02 13:57 | Outpatient (BNVA) | payer MEDICARE, BC, SELFPAY | PROVIDERS: PCP Nurse Practitioner Family; Referring Provider Nurse Practitioner Family; Visit Provider Psychiatry & Neurology Neurology | DX: G20 Parkinson's disease (principal); G31.84 Mild cognitive impairment of uncertain or unknown etiology; G25.81 Restless legs syndrome; K59.01 Slow transit constipation | CPT/HCPCS: 99443 ==

== ENCOUNTER 2021-02-08 07:13 | Emergency (ER) | payer MEDICARE, BC, SELFPAY ==
[2021-02-08] VITALS (23 sets, daily range): BP systolic 139–192; BP diastolic 74–95; PULSE 68–93; RESP 12–20; TEMP 36.6; O2SAT 91–96
--- NOTE | 2021-02-08 07:17 | ED.GENADUL_ITS ---
Discharge Plan Disposition Patient Disposition: HOME Condition: Stable Discharge Details Clinical Impression: Lumbosacral radiculopathy Primary Care Provider: Margaret Jorge ED Provider: Jeff Cabrera [place] Meds and New Rx's Prescriptions: Continued acetaminophen [Acetaminophen Extra Strength] 500 mg tablet 1,000 mg PO TID PRNRF: 0 prednisone 20 mg tablet 40 mg PO DAILY RF: 0 docusate sodium 100 mg tablet 100 mg PO TID RF: 0 loratadine [Claritin] 10 mg tablet 10 mg PO DAILY RF: 0 entacapone 200 mg tablet 200 mg PO QID Qty: 360 RF: 3 alfuzosin 10 mg tablet extended release 24 hr 10 mg PO DAILY RF: 0 gabapentin 600 mg tablet 600 mg PO QID RF: 0 carbidopa-levodopa 25-100 mg tablet extended release 1 tab PO QHS Qty: 90 RF: 3 senna 8.6 mg capsule 17.2 mg PO QHS PRNRF: 0 sertraline [Zoloft] 100 MG tablet 200 mg PO DAILY RF: 0 solifenacin [Vesicare] 5 MG tablet 5 mg PO DAILY RF: 0 levothyroxine 50 mcg tablet 88 mcg PO DAILY RF: 0 nitroglycerin [Nitrostat] 0.4 MG tablet, sublingual 0.4 mg Sublingual PRN PRNRF: 0 atorvastatin [Lipitor] 80 mg tablet 80 mg PO HS RF: 0 ibuprofen [Ibuprofen IB] 200 MG tablet 600 mg PO TID PRNRF: 0 baclofen 10 mg tablet 10 mg PO HS PRNRF: 0 psyllium husk [Metamucil] 0.52 gram Capsule 0.52 - 1.04 g PO DAILY RF: 0 carbidopa-levodopa 25-100 mg tablet 1 tab PO QID RF: 0 famotidine [Pepcid] 40 mg tablet 40 mg PO QHS Qty: 90 RF: 0 hydrocodone-acetaminophen 5-325 mg tablet 1 tab PO Q6H RF: 0 morphine 10 mg capsule,extend.release pellets 10 mg PO Q12H RF: 0 magnesium hydroxide [Milk of Magnesia] 400 mg/5 mL Suspension 400 mg PO DAILY PRNRF: 0 bisacodyl 10 mg Suppository 10 mg [place] DAILY PRNRF: 0 Discharge Instructions Additional Instructions: your xray showed no broken bones follow up as scheduled with your surgeon this week if you have fevers, severe worsening pain or difficulty urinating return to the emergency department Medical Decision Making <Tremaine Olmos MD - Last Filed: 02/08/21 07:50> Patient here with worsening of his chronic back pain despite medications at home. He is on steroids. He is due for surgery on . He is also quite constipated, likely due to all the narcotic. He is able to ambulate with a shuffle and somewhat hunched over. He has history of Parkinson's. Lower extremities are extremely rigid. He had a recent fall and does have some bruising to the lower back. Unable to obtain any discrete tenderness with palpation along the spine. Given the heavy use of narcotics with little help, will place IV and give subdissociative ketamine with low-dose Valium as well. Obtain LS spine x-ray to rule out any possible fracture from the fall. Patient will be signed over to oncoming physician, Dr. Cabrera. Disposition pending x-ray and reevaluation pain control postmedication. <Jeff Cabrera MD - Last Filed: 02/08/21 08:53> patient's xray shows no acute fracture, he is feeling better and denies pain now and is ambulating with a walker which he uses at home. He feels well enough for d/c and discussed with who is also comfortable with this. He will f/u as scheduled for planned surgery and return precautions given. He has no saddle anesthesia and no urinary retention so doubt cauda equina and no fevers so doubt spinal epidural abscess. Imaging Data Radiologic Study: Attestation: I personally reviewed and interpreted this imaging study as follows: Imaging: X-Ray Radiologist's impression: IMPRESSION: 1. There is no evidence of acute fracture.There is no evidence of malalignment or dislocation. 2. Intervertebral disc space narrowing L4 through S1 consistent with degenerative disc disease.. HPI <Tremaine Olmos MD - Last Filed: 02/08/21 07:50> General Mode of arrival: EMS . Date/Time Provider Initiated Documentation: 02/08/21 07:17 . Limitations to Documentation: no limitations . Information obtained by: patient, RN notes reviewed and old records reviewed . HPI Narrative: Patient presents to ED by ambulance with worsening back pain. Patient with chronic low back pain due for surgery in 4 days. Recent admission last month for couple of days due to severe pain. At home he is on gabapentin, oral morphine, hydrocodone/acetaminophen, baclofen and prednisone. He did have a fall the other day and struck his back on the toilet. He has had worsening pain since then. Morphine and hydrocodone/acetaminophen not helping. He denies any abdominal pain. He is constipated and has not had a bowel movement in about a week despite taking laxatives and stool softeners. He denies any numbness. He denies bladder or bowel dysfunction other than severe constipation. He denies weakness but is very stiff and does have history of Parkinson's with shuffling gait. Related Data Home Medications Medication Instructions Recorded Confirmed nitroglycerin [Nitrostat] 0.4 mg SUBLINGUAL PRN PRN 11/23/13 02/08/21 sertraline [Zoloft] 200 mg PO DAILY tab-cap 10/28/14 02/08/21 solifenacin [Vesicare] 5 mg PO DAILY tab-cap 01/05/17 02/08/21 ibuprofen [Ibuprofen IB] 600 mg PO TID PRN 04/30/17 02/08/21 levothyroxine 50 mcg tablet 88 mcg PO DAILY tab-cap 07/12/19 02/08/21 loratadine 10 mg tablet 10 mg PO DAILY 03/05/20 02/08/21 atorvastatin 80 mg tablet 80 mg PO HS 08/21/20 02/08/21 entacapone 200 mg tablet 200 mg PO QID #360 tab 08/21/20 02/08/21 alfuzosin 10 mg tablet,extended 10 mg PO DAILY 11/18/20 02/08/21 release 24 hr carbidopa ER 25 mg-levodopa 100 mg 1 tab PO QHS #90 tab 11/18/20 02/08/21 tablet,extended release gabapentin 600 mg tablet 600 mg PO QID tab 11/18/20 02/08/21 famotidine [Pepcid] 40 mg PO QHS #90 tab 11/26/20 02/08/21 baclofen 10 mg PO HS PRN 01/12/21 02/08/21 carbidopa-levodopa 1 tab PO QID 01/12/21 02/08/21 psyllium husk [Metamucil] 0.52 - 1.04 g PO DAILY 01/12/21 02/08/21 acetaminophen 500 mg tablet 1,000 mg PO TID PRN tab 01/29/21 02/08/21 docusate sodium 100 mg tablet 100 mg PO TID 01/29/21 02/08/21 prednisone 20 mg tablet 40 mg PO DAILY tab 01/29/21 02/08/21 sennosides 8.6 mg capsule 17.2 mg PO QHS PRN 01/29/21 02/08/21 bisacodyl 10 mg [place] DAILY PRN 02/08/21 02/08/21 hydrocodone-acetaminophen 1 tab PO Q6H 02/08/21 02/08/21 magnesium hydroxide [Milk of 400 mg PO DAILY PRN 02/08/21 02/08/21 Magnesia] morphine 10 mg PO Q12H 02/08/21 02/08/21 Previous Rx's Medication Instructions Recorded entacapone 200 mg tablet 200 mg PO QID #360 tab 08/21/20 carbidopa ER 25 mg-levodopa 100 mg 1 tab PO QHS #90 tab 11/18/20 tablet,extended release famotidine [Pepcid] 40 mg PO QHS #90 tab 11/26/20 Allergies Allergy/AdvReac Type Severity Reaction Status Date / Time mirabegron [From Myrbetriq] Allergy Mild unknown Verified 02/08/21 07:19 finasteride AdvReac Severe Hypotension Verified 02/08/21 07:19 General MARTIN: 4 Review of Systems <Tremaine Olmos MD - Last Filed: 02/08/21 07:50> Narrative: As documented in HPI otherwise negative as below. Const: no fever, chills, weakness Resp: no cough, SOB, pleuritic pain CV: no CP, diaphoresis, edema, syncope GI: no abdominal pain, nausea, vomiting, diarrhea Neuro: no headache, numbness, focal weakness PFSH <Tremaine Olmos MD - Last Filed: 02/08/21 07:50> Medical History ADD (attention deficit disorder) Anxiety Arthralgia of left acromioclavicular joint (02/02/17) Atrophy of right hand muscles (03/10/16) Blood glucose elevated BPH (benign prostatic hyperplasia) CAD (coronary artery disease) Claudication bilateral Constipation due to slow transit (03/10/16) Contracture of hand Depression Dizziness History of ST elevation myocardial infarction (STEMI) 2014-F/U with cardiology Dr. Salazar Hyperlipidemia Hypothyroidism Inguinal hernia left and right Insomnia Iron deficiency anemia Left hip pain Low back pain Lumbosacral radiculopathy (11/11/14) [place] (myocardial infarction) 2014 Mild cognitive impairment (05/19/16) Nausea Orthostatic hypotension due to Parkinson's disease (02/09/18) Parkinson disease (03/10/16) Peripheral artery disease Restless leg syndrome (08/08/17) SVT (supraventricular tachycardia) Trochanteric bursitis of left hip Urinary retention Vertigo Surgical History Cardiac cath 2013 Colonoscopy - IV Sedation (07/27/16) LAURENT to RCA x 3 2014 Hernia Repair, Incisional (09/28/16) right femoral x5 History of carpal tunnel surgery of left wrist Incomplete tear of left rotator cuff (02/02/17) s/p repair March 2017 medial facetectomy L4-5 01/30/15 Repair of inguinal hernia RIH repair >50 years ago Repair of umbilical hernia S/P bilateral cataract extraction S/P lumbar spine operation 05/10/19; Dr. 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 HEENT: NC/AT. Normal facial exam. Neck: Supple. Trachea midline. Lungs: Normal respiratory effort. Cor: RRR. Good radial pulses. GI: Soft. NT/ND. No guarding or rebound. Back: No specific area of tenderness to palpation. Neuro: A+O x 3. Normal speech, mentation. Shuffling slow gait. Cranial nerves II - XII grossly intact. No gross motor or sensory deficit. BLE very stiff and limited in ROM even passively. Ext: No C/C/E. Skin: Warm and dry without rash. Sign Out <Tremaine Olmos MD - Last Filed: 02/08/21 07:50> Sign Out Data: Sign Out Comment: pending x-rays; pain medication Last updated by Tremaine Olmos MD at 02/08/21 07:51
--- NOTE | 2021-02-08 07:30 | DI.RAD_ITS ---
EXAM: XR LUMBAR SPINE AP, LAT CLINICAL HISTORY: fall with increased back pain. TECHNIQUE: 2D digital imaging was performed. COMPARISON: CR CHEST 2 VIEWS PA,LAT from 01/23/2015 CR XR lumbar spine complete from 02/06/2019 FINDINGS: There is normal alignment of the lumbar spine. No acute fractures or subluxations are seen. Mild-to -moderate degenerative changes are present throughout the lumbar spine. The soft tissues are unremar kable. IMPRESSION: No acute fracture or subluxation in the lumbar spine. DATA REPOSITORY: RADIATION DOSE DELIVERED:
[2021-02-08] MEDS: diazePAM 10 MG/2 ML SYR 2 MG IVP (07:49)
--- NOTE | 2021-02-08 08:32 | DI.VRAD_ITS ---
PROCEDURE INFORMATION: Exam: XR Lumbosacral Spine Exam date and time: 02/08/2021 8:18 AM Age: 75 years old Clinical indication: Other: Fall with increased back pain TECHNIQUE: Imaging protocol: XR of the lumbosacral spine. Views: 2 or 3 views. COMPARISON: MR LUMBAR SPINE WO 12/22/2020 8:05 AM FINDINGS: Bones/joints: There is no evidence of acute fracture.There is no evidence of malalignment or dislocation. Anterior osteophyte formation L1 through L5 Intervertebral disc space narrowing L4 through S1 consistent with degenerative disc disease.. Soft tissues: Unremarkable. IMPRESSION: 1. There is no evidence of acute fracture.There is no evidence of malalignment or dislocation. 2. Intervertebral disc space narrowing L4 through S1 consistent with degenerative disc disease.. Dictated and Authenticated by: Funmilayo Gregorio MD. Ordering:MERVAT Penaloza MD
== END 2021-02-08 10:00 | disposition home or self-care (01) ==
PROVIDERS: Emergency Provider Emergency Medicine; PCP Nurse Practitioner Family
DX: M54.17 Radiculopathy, lumbosacral region; S30.0XXA Contusion of lower back and pelvis, initial encounter; W19.XXXA Unspecified fall, initial encounter
CPT/HCPCS: 96374; 99284; 72100; J3360

== ENCOUNTER 2021-02-10 09:05 | Observation (INO) | payer MEDICARE, BC, SELFPAY ==
[2021-02-10] VITALS (7 sets, daily range): BP systolic 125–164; BP diastolic 76–83; PULSE 59–93; RESP 18–20; TEMP 35.4–36.8; O2SAT 90–98
--- NOTE | 2021-02-10 09:32 | W.ED.GENAD ---
Discharge Plan Discharge Details Chief Complaint: PsychEval Primary Care Provider: Margaret Jorge ED Provider: Giacomo Wilson Home Meds and New Rx's Prescriptions: No Action acetaminophen [Acetaminophen Extra Strength] 500 mg tablet 1,000 mg PO TID PRNRF: 0 prednisone 20 mg tablet 40 mg PO DAILY RF: 0 docusate sodium 100 mg tablet 100 mg PO TID RF: 0 loratadine [Claritin] 10 mg tablet 10 mg PO DAILY RF: 0 entacapone 200 mg tablet 200 mg PO QID Qty: 360 RF: 3 alfuzosin 10 mg tablet extended release 24 hr 10 mg PO DAILY RF: 0 gabapentin 600 mg tablet 600 mg PO QID RF: 0 carbidopa-levodopa 25-100 mg tablet extended release 1 tab PO QHS Qty: 90 RF: 3 senna 8.6 mg capsule 17.2 mg PO QHS PRNRF: 0 sertraline [Zoloft] 100 MG tablet 200 mg PO DAILY RF: 0 solifenacin [Vesicare] 5 MG tablet 5 mg PO DAILY RF: 0 levothyroxine 50 mcg tablet 88 mcg PO DAILY RF: 0 nitroglycerin [Nitrostat] 0.4 MG tablet, sublingual 0.4 mg Sublingual PRN PRNRF: 0 atorvastatin [Lipitor] 80 mg tablet 80 mg PO HS RF: 0 ibuprofen [Ibuprofen IB] 200 MG tablet 600 mg PO TID PRNRF: 0 baclofen 10 mg tablet 10 mg PO HS PRNRF: 0 psyllium husk [Metamucil] 0.52 gram Capsule 0.52 - 1.04 g PO DAILY RF: 0 carbidopa-levodopa 25-100 mg tablet 1 tab PO QID RF: 0 hydrocodone-acetaminophen 5-325 mg tablet See Rx Instructions .ROUTE .COMPLEX RF: 0 diazepam 2 mg Tablet 2 mg RF: 0 famotidine [Pepcid] 40 mg tablet 40 mg PO QHS Qty: 90 RF: 0 hydrocodone-acetaminophen 5-325 mg tablet 1 tab PO Q6H RF: 0 morphine 10 mg capsule,extend.release pellets 10 mg PO Q12H RF: 0 magnesium hydroxide [Milk of Magnesia] 400 mg/5 mL Suspension 400 mg PO DAILY PRNRF: 0 bisacodyl 10 mg Suppository 10 mg [place] DAILY PRNRF: 0 Medical Decision Making 75-year-old male presents via EMS for both progressive and worsening low back pain as well as suicidal ideation, stating that the pain made him wish he could kill himself. He is reported to have guns in the home, which his locked up. Patient with known lumbar disc disease, most recent MRI on December 22 revealed right disc protrusion at L4-5, generalized annular bulge at L1-2 see formal report. At his visit to the emergency department and subsequent admission to the hospital on January 12, his case was discussed with neurosurgery at [facility], with no indication for acute intervention/surgery. Patient now with worsening back pain at home, despondency regarding the pain, report of some progressive generalized weakness. He presents to the ER afebrile, interactive, but in some distress. He has intact motor and sensory function of the lower extremity with a normal rectal tone. Patient had IV access established, screening labs obtained, a sitter ordered given his worsening of suicidality, and the patient given parenteral analgesia. Patient was evaluated by mental health shine worker, states that his voiced suicidality was a figure of speech and that he does not have depression or active suicidality. Patient underwent lumbar MRI which shows no significant interval change. (No change in appearance of the lumbar spine since 12/22/2020 (Multilevel degenerative changes in the lumbar spine with multilevel neural foraminal stenosis.) I discussed the patient's presentation & MRI with 's neurosurgery service. They are continuing to plan for outpatient surgery at [facility] on . They do recommend ongoing steroids including a dose of IV dexamethasone and opiates if needed for pain control. No indication to advance timing of surgery, nor for transfer at this time. I also discussed with the patient's , Maite. He may benefit from one night admission for parenteral steroids and analgesia. His states they will have increased help in the home tomorrow night and she feels better able to manage him at that time. They will have the resources for him to attend his surgical appointment in [facility] on . HPI General Mode of arrival: ambulatory. Date/Time Provider Initiated Documentation: 02/10/21 09:13. Limitations to Documentation: no limitations. Information obtained by: patient and EMS. History of Present Illness 75 year old M presents to the emergency department with the chief complaint of Back pain, severe, suicidal, described as severe and similar to prior episodes, Quality is described as dull, and is localized to the back, left and right. Patient distal. Patient started experiencing this week(s) and it has been constant. No relieving factors improve symptom(s), No exacerbating factors reported . Patient notes diaphoresis. Patient did receive the following treatments prior to arrival, none Related Data Home Medications Medication Instructions Recorded Confirmed nitroglycerin [Nitrostat] 0.4 mg SUBLINGUAL PRN PRN 11/23/13 02/08/21 sertraline [Zoloft] 200 mg PO DAILY tab-cap 10/28/14 02/08/21 solifenacin [Vesicare] 5 mg PO DAILY tab-cap 01/05/17 02/08/21 ibuprofen [Ibuprofen IB] 600 mg PO TID PRN 04/30/17 02/08/21 levothyroxine 50 mcg tablet 88 mcg PO DAILY tab-cap 07/12/19 02/08/21 loratadine 10 mg tablet 10 mg PO DAILY 03/05/20 02/08/21 atorvastatin 80 mg tablet 80 mg PO HS 08/21/20 02/08/21 entacapone 200 mg tablet 200 mg PO QID #360 tab 08/21/20 02/08/21 alfuzosin 10 mg tablet,extended 10 mg PO DAILY 11/18/20 02/08/21 release 24 hr carbidopa ER 25 mg-levodopa 100 mg 1 tab PO QHS #90 tab 11/18/20 02/08/21 tablet,extended release gabapentin 600 mg tablet 600 mg PO QID tab 11/18/20 02/08/21 famotidine [Pepcid] 40 mg PO QHS #90 tab 11/26/20 02/08/21 baclofen 10 mg PO HS PRN 01/12/21 02/08/21 carbidopa-levodopa 1 tab PO QID 01/12/21 02/08/21 psyllium husk [Metamucil] 0.52 - 1.04 g PO DAILY 01/12/21 02/08/21 acetaminophen 500 mg tablet 1,000 mg PO TID PRN tab 01/29/21 02/08/21 docusate sodium 100 mg tablet 100 mg PO TID 01/29/21 02/08/21 prednisone 20 mg tablet 40 mg PO DAILY tab 01/29/21 02/10/21 sennosides 8.6 mg capsule 17.2 mg PO QHS PRN 01/29/21 02/08/21 bisacodyl 10 mg [place] DAILY PRN 02/08/21 02/08/21 hydrocodone-acetaminophen 1 tab PO Q6H 02/08/21 02/08/21 magnesium hydroxide [Milk of 400 mg PO DAILY PRN 02/08/21 02/08/21 Magnesia] morphine 10 mg PO Q12H 02/08/21 02/10/21 diazepam 2 mg 02/10/21 hydrocodone-acetaminophen See Rx Instructions .ROUTE .COMPLEX 02/10/21 02/10/21 Previous Rx's Medication Instructions Recorded entacapone 200 mg tablet 200 mg PO QID #360 tab 08/21/20 carbidopa ER 25 mg-levodopa 100 mg 1 tab PO QHS #90 tab 11/18/20 tablet,extended release famotidine [Pepcid] 40 mg PO QHS #90 tab 11/26/20 Allergies Allergy/AdvReac Type Severity Reaction Status Date / Time mirabegron [From Myrbetriq] Allergy Mild unknown Verified 02/08/21 07:19 finasteride AdvReac Severe Hypotension Verified 02/08/21 07:19 General Stated Complaint: PsychEval MARTIN: 2 Review of Systems Narrative: 6 systems reviewed and otherwise negative. No new fall. States she has had urinary continence and intermittent normal bowel movements. States has guns in the home. [facility] Medical History ADD (attention deficit disorder) Anxiety Arthralgia of left acromioclavicular joint (02/02/17) Atrophy of right hand muscles (03/10/16) Blood glucose elevated BPH (benign prostatic hyperplasia) CAD (coronary artery disease) Claudication bilateral Constipation due to slow transit (03/10/16) Contracture of hand Depression Dizziness History of ST elevation myocardial infarction (STEMI) 2013-F/U with cardiology Dr. Salazar Hyperlipidemia Hypothyroidism Inguinal hernia left and right Insomnia Iron deficiency anemia Left hip pain Low back pain Lumbosacral radiculopathy (11/11/14) [place] (myocardial infarction) 2013 Mild cognitive impairment (05/19/16) Nausea Orthostatic hypotension due to Parkinson's disease (02/09/18) Parkinson disease (03/10/16) Peripheral artery disease Restless leg syndrome (08/08/17) SVT (supraventricular tachycardia) Trochanteric bursitis of left hip Urinary retention Vertigo Surgical History Cardiac cath 2013 Colonoscopy - IV Sedation (07/27/16) LAURENT to RCA x 3 2013 Hernia Repair, Incisional (09/28/16) right femoral x5 History of carpal tunnel surgery of left wrist Incomplete tear of left rotator cuff (02/02/17) s/p repair March 2017 medial facetectomy L4-5 01/30/15 Repair of inguinal hernia RIH repair >50 years ago Repair of umbilical hernia S/P bilateral cataract extraction S/P lumbar spine operation 05/10/19; Dr. 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 HEAD: Normocephalic, atraumatic ENT: Masked facies, mucous membranes dry, oropharynx unremarkable, External ear exam unremarkable EYES: PERRL, EOMI NECK: Full ROM, no KATTY, no menigismus CHEST/RESP: Nontender, clear to auscultation bilateral, no wheeze/rhonchi/rales CARDIOVASCULAR: RRR, no murmur, rub promise. 2+ Rad pulse bilateral ABDOMEN: Soft, nontender, no mass. +Bowel sounds. No saddle anesthesia. Normal rectal tone, no mass, guaiac negative EXT: General muscular atrophy, full ROM, no edema, no rash. Patient able to demonstrate motor function against gravity of bilateral lower extremities, he cannot hold against resistance bilaterally. Reflexes are trace at bilateral patella. Neuro: Grossly normal neurologic exam, conversant, interactive. Psych: Speech fluent, thoughts congruent, affect flat Course Vital Signs Vital signs: Vital Signs Temperature 35.4 C L 02/10/21 09:13 Pulse 87 02/10/21 09:13 Respiratory Rate 20 02/10/21 09:13 Blood Pressure 135/82 02/10/21 09:13 Pulse Oximetry 94 02/10/21 09:13 Temperature 35.4 C L 02/10/21 09:13 Temperature Source Temporal Artery Scan 02/10/21 09:13 Pulse 87 02/10/21 09:13 Respiratory Rate 20 02/10/21 09:13 Respiratory Effort 02/10/21 09:20 Blood Pressure 135/82 02/10/21 09:13 Blood Pressure Position Supine 02/10/21 09:13 Pulse Oximetry 94 02/10/21 09:13 Oxygen Delivery Method Room Air 02/10/21 09:13 Oxygen Flow Rate 0 02/10/21 09:13 Pain Level 9 02/10/21 09:13
--- NOTE | 2021-02-10 09:45 | DI.MRI_ITS ---
EXAM: MR LUMBAR SPINE WO CLINICAL HISTORY: KNOWN DISEASE, WORSENING PAIN. TECHNIQUE: Multiplanar multisequence MRI of the Lumbar spine was performed. COMPARISON: MR MR LUMBAR SPINE WO from 12/22/2020 FINDINGS: Bones: The last intervertebral disc space is designated the L5/S1 level for the numbering purpose of this examination. The vertebral body heights are well maintained. Alignment is satisfactory. Multil evel degenerative endplate signal changes are present. The findings are most marked at L5-S1. Cord: The conus tip ends at the L1 level. It is of normal size and signal intensity. T12-L1: No disc herniations or bulges are present. No central spinal canal or neural foraminal stenos is. L1-2: There is again seen a diffuse disc bulge which appears stable compared to the recent examinatio n. No central spinal canal or neural foraminal stenosis. L2-3: There is a stable diffuse disc bulge. No significant central spinal canal or neural foraminal stenosis.Mild degenerative changes of the facets are noted. L3-4: There is a diffuse disc bulge. There are degenerative changes of the facets seen. No signific ant central spinal canal stenosis is seen. There is stable mild narrowing of the left neural foramen . No significant right neural foraminal stenosis. L4-5: There is a diffuse disc bulge eccentric to the right which causes right lateral recess stenosis . This is unchanged compared to the prior examination. There are degenerative changes of the facets . There is stable moderate right and mild left neural foraminal stenosis. No significant central sp inal canal stenosis is present. L5-S1: No focal disc herniation. Degenerative changes of the facets are noted. There is stable sign ificant right neural foraminal stenosis and mild left neural foraminal stenosis. Soft tissues: The visualized SI joints and sacrum are well maintained. The paraspinal soft tissues ar e unremarkable. IMPRESSION: No change in appearance of the lumbar spine since 12/22/2020. Multilevel degenerative changes in the lumbar spine with multilevel neural foraminal stenosis. Results of this exam have been verbally communicated with provider. DATA REPOSITORY:
[2021-02-10] MEDS: HYDROmorphone 2 MG/ML VIAL 1 MG IVP (09:52)
[2021-02-10] MEDS: LORazepam 2 MG/ML VIAL 0.5 MG IVP (09:53)
[2021-02-10 10:18] LABS: Abs Immature Grans 0.05 10^3/uL (0.0-0.06); Absolute Basophil Count 0.02 10^3/uL (0.0-0.2); Absolute Eosinophil Count 0.03 10^3/uL (0.0-0.7); Absolute Lymphocyte Count 0.31 10^3/uL (1.2-3.4); Absolute Monocyte Count 0.51 10^3/uL (0.1-0.8); Basophils % 0.2; Eosinophils % 0.3; HCT 40.6 % (40.0-50.0); HGB 14.1 g/dL (13.5-17.5); Immature Grans % 0.5; MCH 30.8 pg (27.0-33.0); MCHC 34.7 % (32.0-36.0); MCV 88.6 fL (80-95); MPV 9.6 fL (8.0-11.0); Monocytes % 4.9; Neutrophils % 91.1; Nucleated RBC 0 %; Platelet Count 211 10^3/uL (130-400); RBC 4.58 10^6/uL (4.36-5.78); RDW-SD 38.8 fL; WBC 10.32 10^3/uL (4.4-10.8)
[2021-02-10 10:46] LABS: ALT 31 U/L (16-63); AST 11 U/L (15-37); Albumin 3.7 g/dL (3.4-5.0); Alkaline Phosphatase 83 U/L (46-116); Anion Gap 7.7 mmol/L (3-11); BUN 21 mg/dL (7-18); Bilirubin, Total 0.5 mg/dL (0.2-1.0); CO2 28.3 mmol/L (21.0-32.0); CREATININE 1.2 mg/dL (0.70-1.30); Calcium 8.5 mg/dL (8.5-10.1); Chloride 99 mmol/L (98-107); Estimated GFR 59.35 (mL/min/1.73m2); Glucose 122 mg/dL (74-106); Potassium 4.1 mmol/L (3.5-5.1); Sodium 135 mmol/L (136-145); TSH 3.84 uIU/mL (0.36-3.74); Total Protein 6.9 g/dL (6.4-8.2)
[2021-02-10 10:51] LABS: Acetaminophen 11 ug/mL (10-30); Salicylate 8.9 mg/dL (<2.8)
[2021-02-10 10:53] LABS: ETHANOL BLOOD < 3.0 mg/dL (<3)
[2021-02-10 11:26] LABS: COVID-19 PCR Negative (Negative)
[2021-02-10] MEDS: Dexamethasone 10 MG/ML VIAL IVP (12:58)
[2021-02-10] MEDS: Normal Saline 1,000 ML 150 ML IV ×3 (13:53→21:26)
[2021-02-10 14:13] LABS: *AMPHETAMINES SCREEN URINE Negative (Negative); *BARBITURATES SCREEN URINE Negative (Negative); *BENZODIAZEPINES SCREEN URINE Positive (Negative); Cannabinoids THC Positive (Negative); Cocaine Screen,Urine Negative (Negative); METHADONE URINE SCREEN Negative (Negative); OPIATES URINE SCREEN Positive (Negative)
[2021-02-10 14:14] LABS: Tricyclic Antidepressants Negative (Negative)
[2021-02-10 14:26] LABS: Clarity Clear (Clear); Specific Gravity 1.023 (1.005-1.025)
[2021-02-10 14:28] LABS: Epithelial Cells Negative HPF (Negative); RBC 0-2 HPF (0-2)
[2021-02-10 14:29] LABS: Bacteria Few HPF (Negative); C & S Indicated? Yes; Casts 0-2 Coarse Granular LPF (Negative); Crystals Negative HPF (Negative); Mucus Heavy (Negative); Other Cells Few Renal (Negative)
--- NOTE | 2021-02-10 14:40 | W.PM.HP.N ---
Date of service: 02/10/21 Time of Service: 14:41 Assessment and Plan Assessment and plan (1) Lumbar disc disease: Status: Acute Assessment and plan: referred to observation for pain management scheduled for surgery at [facility] on . increase steroids add IV dilaudid bowel management (2) Suicidal ideation: Status: Acute Assessment and plan: seen and cleared by mental health was making statements secondary to unmanaged pain (3) DVT prophylaxis: Status: Acute (4) Discharge planning issues: Status: Acute Assessment and plan: discharge to home tomorrow. plan for surgery on patient agreeable. discussed with Dr Workman History of Present Illness History of Present Illness Chief Complaint: back pain, suicidal ideation Narrative: Review of Systems All systems reviewed & are unremarkable except as noted in HPI and below [facility] Medical History ADD (attention deficit disorder) Anxiety Arthralgia of left acromioclavicular joint (02/02/17) Atrophy of right hand muscles (03/10/16) Blood glucose elevated BPH (benign prostatic hyperplasia) CAD (coronary artery disease) Claudication bilateral Constipation due to slow transit (03/10/16) Contracture of hand Depression Dizziness History of ST elevation myocardial infarction (STEMI) 2014-F/U with cardiology Dr. Salazar Hyperlipidemia Hypothyroidism Inguinal hernia left and right Insomnia Iron deficiency anemia Left hip pain Low back pain Lumbosacral radiculopathy (11/11/14) [place] (myocardial infarction) 2014 Mild cognitive impairment (05/19/16) Nausea Orthostatic hypotension due to Parkinson's disease (02/09/18) Parkinson disease (03/10/16) Peripheral artery disease Restless leg syndrome (08/08/17) SVT (supraventricular tachycardia) Trochanteric bursitis of left hip Urinary retention Vertigo Surgical History Cardiac cath 2013 Colonoscopy - IV Sedation (07/27/16) LAURENT to RCA x 3 2014 Hernia Repair, Incisional (09/28/16) right femoral x5 History of carpal tunnel surgery of left wrist Incomplete tear of left rotator cuff (02/02/17) s/p repair March 2017 medial facetectomy L4-5 01/30/15 Repair of inguinal hernia [facility] repair >50 years ago Repair of umbilical hernia S/P bilateral cataract extraction S/P lumbar spine operation 05/10/19; Dr. 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 Current gender identity: male What is your relationship status?: Panel score (0-1 are the most socially isolated patients): 1 What type of physical activity do you participate in: walking and additional Details: WORKS ON THE [employer] and yard work Do you feel safe at home: Yes (pt states he feels very safe with of > 40 years) Do you feel safe in your relationship?: Yes Meds Allergies and Home Medications Allergies Allergy/AdvReac Type Severity Reaction Status Date / Time mirabegron [From Myrbetriq] Allergy Mild unknown Verified 02/08/21 07:19 finasteride AdvReac Severe Hypotension Verified 02/08/21 07:19 Home Medications Medication Instructions Recorded Confirmed Type nitroglycerin [Nitrostat] 0.4 mg SUBLINGUAL PRN PRN 11/23/13 02/08/21 History sertraline [Zoloft] 200 mg PO DAILY tab-cap 10/28/14 02/08/21 History solifenacin [Vesicare] 5 mg PO DAILY tab-cap 01/05/17 02/08/21 History ibuprofen [Ibuprofen IB] 600 mg PO TID PRN 04/30/17 02/08/21 History levothyroxine 50 mcg tablet 88 mcg PO DAILY tab-cap 07/12/19 02/08/21 History loratadine 10 mg tablet 10 mg PO DAILY 03/05/20 02/08/21 History atorvastatin 80 mg tablet 80 mg PO HS 08/21/20 02/08/21 History entacapone 200 mg tablet 200 mg PO QID #360 tab 08/21/20 02/08/21 Rx alfuzosin 10 mg tablet,extended 10 mg PO DAILY 11/18/20 02/08/21 History release 24 hr carbidopa ER 25 mg-levodopa 100 mg 1 tab PO QHS #90 tab 11/18/20 02/08/21 Rx tablet,extended release gabapentin 600 mg tablet 600 mg PO QID tab 11/18/20 02/08/21 History famotidine [Pepcid] 40 mg PO QHS #90 tab 11/26/20 02/08/21 Rx baclofen 10 mg PO HS PRN 01/12/21 02/08/21 History carbidopa-levodopa 1 tab PO QID 01/12/21 02/08/21 History psyllium husk [Metamucil] 0.52 - 1.04 g PO DAILY 01/12/21 02/08/21 History acetaminophen 500 mg tablet 1,000 mg PO TID PRN tab 01/29/21 02/08/21 History docusate sodium 100 mg tablet 100 mg PO TID 01/29/21 02/08/21 History prednisone 20 mg tablet 40 mg PO DAILY tab 01/29/21 02/10/21 History sennosides 8.6 mg capsule 17.2 mg PO QHS PRN 01/29/21 02/08/21 History bisacodyl 10 mg SC DAILY PRN 02/08/21 02/08/21 History hydrocodone-acetaminophen 1 tab PO Q6H 02/08/21 02/08/21 History magnesium hydroxide [Milk of 400 mg PO DAILY PRN 02/08/21 02/08/21 History Magnesia] morphine 10 mg PO Q12H 02/08/21 02/10/21 History diazepam 2 mg PO BID 02/10/21 02/10/21 History hydrocodone-acetaminophen See Rx Instructions .ROUTE .COMPLEX 02/10/21 02/10/21 History Results Labs Result diagrams: 02/10/21 10:10 02/10/21 10:10 Labs: Laboratory Results - last 24 hr 02/10/21 02/10/21 02/10/21 10:10 10:10 10:10 WBC 10.32 RBC 4.58 Hgb 14.1 Hct 40.6 MCV 88.6 MCH 30.8 MCHC 34.7 RDW 12.0 Plt Count 211 MPV 9.6 Immature Gran % 0.5 Neutrophils % 91.1 Lymphocytes % 3.0 Monocytes % 4.9 Eosinophils % 0.3 Basophils % 0.2 Nucleated RBC % 0 Absolute Neutrophils 9.40 H Absolute Lymphocytes 0.31 L Absolute Monocytes 0.51 Absolute Eosinophils 0.03 Absolute Basophils 0.02 Sodium 135 L Potassium 4.1 Chloride 99 Carbon Dioxide 28.3 Anion Gap 7.7 BUN 21 H Creatinine 1.2 Estimated GFR/1.73 m2 59.35 Glucose 122 H Calcium 8.5 Total Bilirubin 0.5 AST 11 L ALT 31 Alkaline Phosphatase 83 Total Protein 6.9 Albumin 3.7 TSH 3.84 H Urine Color Urine Clarity Urine pH Ur Specific [place] Urine Protein Urine Ketones Urine Blood Urine Nitrite Urine Bilirubin Urine Urobilinogen Ur Leukocyte Esterase Urine RBC Urine WBC Ur Epithelial Cells Urine Crystals Urine Bacteria Urine Casts Urine Mucus Urine Other Ur Culture Indicated? Urine Glucose Salicylates 8.9 Urine Opiates Screen Urine Methadone Screen Acetaminophen 11 Ur Barbiturates Screen Ur Tricyclics Screen Ur Amphetamines Screen U Benzodiazepines Scrn Urine Cocaine Screen Ur THC Screen Ethyl Alcohol < 3.0 COVID-19 Source SARS-CoV-2 (PCR) 02/10/21 02/10/21 02/10/21 10:32 13:49 13:49 WBC RBC Hgb Hct MCV MCH MCHC RDW Plt Count MPV Immature Gran % Neutrophils % Lymphocytes % Monocytes % Eosinophils % Basophils % Nucleated RBC % Absolute Neutrophils Absolute Lymphocytes Absolute Monocytes Absolute Eosinophils Absolute Basophils Sodium Potassium Chloride Carbon Dioxide Anion Gap BUN Creatinine Estimated GFR/1.73 m2 Glucose Calcium Total Bilirubin AST ALT Alkaline Phosphatase Total Protein Albumin TSH Urine Color [place] Urine Clarity Clear Urine pH Not Applicable Ur Specific [place] 1.023 Urine Protein Not Applicable Urine Ketones Not Applicable Urine Blood Not Applicable Urine Nitrite Not Applicable Urine Bilirubin Not Applicable Urine Urobilinogen Not Applicable Ur Leukocyte Esterase Not Applicable Urine RBC 0-2 Urine WBC 5-10 Ur Epithelial Cells Negative Urine Crystals Negative Urine Bacteria Few Urine Casts 0-2 coarse granular Urine Mucus Heavy Urine Other Few renal Ur Culture Indicated? Yes Urine Glucose Not Applicable Salicylates Urine Opiates Screen Positive A Urine Methadone Screen Negative Acetaminophen Ur Barbiturates Screen Negative Ur Tricyclics Screen Negative Ur Amphetamines Screen Negative U Benzodiazepines Scrn Positive A Urine Cocaine Screen Negative Ur THC Screen Positive A Ethyl Alcohol COVID-19 Source Nasopharyx SARS-CoV-2 (PCR) Negative Last Vital Signs Temp 36.4 C L 02/10/21 12:55 Pulse 80 02/10/21 14:37 Resp 20 02/10/21 14:37 BP 125/78 04/13/21 14:37 Pulse Ox 90 L 02/10/21 14:37 COVID-19 Screening Have you, or household traveled for leisure in last 14 days?: No Had IN PERSON contact w/suspected or confirmed C-19 person: No
--- NOTE | 2021-02-10 14:47 | PDOC.MHCN ---
Date of service: 02/10/21 Time of Service: 14:48 Mental Health Crisis Note Presenting Issue How did you arrive at the ED and why did you come: Pt arrived 02.10.2021 via [facility] due to extreme pain and had made a statement he wanted to shoot himself. Precipitating Factors Pt stated that he made the statements because he was in excruciating pain. He denied that he would ever do anything It's not worth it. Pt stated that it was just a figure of speech and this was discussed further with him. Disposition BEHAVIOR: Pt is cooperative and engaged in the assessment. EYE CONTACT: Fair MOOD: Pt endorsed some depression. AFFECT: Flat APPETITE: Pt reported up and down. SLEEP(trouble falling/staying asleep: Pt reported So-so. Plan Pt was asked about services he already has in place. He stated that he has Home Health and that they come 1-2 times a week. Care Management reported that he had a referral for Home Health the last time he was there and is receiving nursing, Occupational Therapy and Physical Therapy. 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 This clinician inquired if the Pt had someone who could take his guns from the home so that they are not an access for him but he refused stating again, it is not necessary. I would never do that. Signature Clinician's Name/Title: Rhina Mak MS, [facility] Emergency Services Clinician, [facility]
[2021-02-10] MEDS: Heparin 5,000 UNITS/ML VIAL 5000 UNITS SC ×2 (16:50→23:48)
[2021-02-10] MEDS: Carbidopa 25/Levodopa 100 TAB PO ×2 (16:52→19:43)
[2021-02-10] MEDS: Gabapentin 600 MG TAB PO ×2 (16:52→19:43)
[2021-02-10] MEDS: diazePAM 2 MG TAB PO (17:01)
[2021-02-10] MEDS: Docusate Sodium 100 MG CAP PO (19:43)
[2021-02-10] MEDS: Atorvastatin 40 MG TAB 80 MG PO (21:26)
[2021-02-10] MEDS: Famotidine 20 MG TAB 40 MG PO (21:26)
[2021-02-11] MEDS: HYDROmorphone 2 MG/ML VIAL 1 MG IVP (03:23)
[2021-02-11] MEDS: diazePAM 2 MG TAB PO ×2 (03:24→12:09)
[2021-02-11] MEDS: Baclofen 10 MG TAB PO (03:24)
[2021-02-11] MEDS: Normal Saline Flush 10 ML SYR IVP (03:24)
[2021-02-11] MEDS: Normal Saline 1,000 ML 150 ML IV (03:25)
--- NOTE | 2021-02-11 03:32 | NUR.NOTE ---
Was called to Patient room by WAFER FABRICATOR patient state he had sudden pain from his hips to his legs. Patient state the pain came on sudden and he feels like jumping through the window. Patient rated pain greater than 10. Hydromorphone 1mg IV, Baclofen 10mg, diazepam 2mg administered at this time. Patient in bed, with bed alarms on for safety
[2021-02-11] MEDS: Levothyroxine 88 MCG TAB PO (06:42)
[2021-02-11] MEDS: Acetaminophen 325 MG TAB 650 MG PO ×2 (06:42→12:09)
[2021-02-11 08:06] VITALS: BP 191/84; PULSE 64; RESP 16; TEMP 36.6; O2SAT 97
[2021-02-11] MEDS: Loratidine 10 MG TAB PO (08:07)
[2021-02-11] MEDS: Carbidopa 25/Levodopa 100 TAB PO ×2 (08:07→11:19)
[2021-02-11] MEDS: Sertraline 50 MG TAB 200 MG PO (08:07)
[2021-02-11] MEDS: Docusate Sodium 100 MG CAP PO ×2 (08:07→14:48)
[2021-02-11] MEDS: Gabapentin 600 MG TAB PO ×2 (08:07→11:19)
[2021-02-11] MEDS: predniSONE 20 MG TAB 60 MG PO (08:08)
[2021-02-11] MEDS: Heparin 5,000 UNITS/ML VIAL 5000 UNITS SC (08:16)
[2021-02-11 09:01] VITALS: BP 190/80
[2021-02-11] MEDS: HYDROcodone 5/Acetaminophen 325 TAB PO ×2 (09:48→14:48)
[2021-02-11 10:23] VITALS: BP 116/60
[2021-02-11 11:34] VITALS: BP 171/88; PULSE 68; RESP 16; TEMP 37.3; O2SAT 95
[2021-02-11 11:41] VITALS: BP 166/80
--- NOTE | 2021-02-11 13:32 | IN_ITS ---
Date of service: 02/11/21 Time of Service: 13:32 PT Notes Visit Reasons: SPINAL STENOSIS, SUICIDAL IDEATION Physical Therapy Inpatient Initial Evaluation Date: 02/11/2021 Referring Doctor: PT Orders: PT CONSULT: Safety consult for D/C Precautions: Fall. Standard. Activity as tolerated. Patient Profile/Admitting Diagnosis: Dayne is a 75-year-old male who presented to the ED on 02/11/2020 due to worsening of low back pain and suicidal ideations. Patient is diagnosed with suicidal ideations and lumbar disc disease with right disc protrusion seen at L4-L5 and generalized annular bulge at L1-L2 with surgery scheduled at [facility] on 02/12/2021. PMHX: Medical History ADD (attention deficit disorder) Anxiety Arthralgia of left acromioclavicular joint (02/02/17) Atrophy of right hand muscles (03/10/16) Blood glucose elevated BPH (benign prostatic hyperplasia) CAD (coronary artery disease) Claudication bilateral Constipation due to slow transit (03/10/16) Contracture of hand Depression Dizziness History of ST elevation myocardial infarction (STEMI) 2014-F/U with cardiology Dr. Salazar Hyperlipidemia Hypothyroidism Inguinal hernia left and right Insomnia Iron deficiency anemia Left hip pain Low back pain Lumbosacral radiculopathy (11/11/14) [place] (myocardial infarction) 2014 Mild cognitive impairment (05/19/16) Nausea Orthostatic hypotension due to Parkinson's disease (02/09/18) Parkinson disease (03/10/16) Peripheral artery disease Restless leg syndrome (08/08/17) SVT (supraventricular tachycardia) Trochanteric bursitis of left hip Urinary retention Vertigo Surgical History Cardiac cath 2014 Colonoscopy - IV Sedation (07/27/16) LAURENT to RCA x 3 2013 Hernia Repair, Incisional (09/28/16) right femoral x5 History of carpal tunnel surgery of left wrist Incomplete tear of left rotator cuff (02/02/17) s/p repair March 2017 medial facetectomy L4-5 01/30/15 Repair of inguinal hernia [facility] repair >50 years ago Repair of umbilical hernia S/P bilateral cataract extraction S/P lumbar spine operation 05/10/19; Dr. Hinojosa Social History/Home Situation: States that he lives with his in a private home. He used to work at [email or web address] and at [employer]. Reports that he uses a walker at home and he has family members ( included) who have been helping him as needed. Equipment Owned/DME: [facility] Subjective: Agreeable to PT consult. States that he is having surgery tomorrow. Indicated that he has had physical therapy work on his back in the past as well as surgeries. He reports burning pain in B hips with right more affected than the L that radiate down the back of his thighs to the front of his legs and top of his feet with ambulation. Was confused about where he was after ambulation activity and reported being lightheaded. Objective: General Observation: Appeared anxious about moving. Pain avoidance behavior. Mental Status: Alert and able to follow single-step commands. Did appear to have a bout of confusion after ambulation activity and requested that he went back to bed. Pain: 8/10 in B LE with weight-bearing ROM: Right Lower Extremity: SLR to only 30 degrees with dural irritation reported at end range. Unable to assume the FABERE position due to pain level. Pelvic and hip muscles in guarding with limited pelvic rock due to pain. DF less than 10 degrees. Left Lower Extremity: SLR to only 45 degrees with dural irritation reported at end range. Unable to assume the FABERE position due to pain level. Pelvic and hip muscles in guarding with limited pelvic rock due to pain. DF only 10 degrees. Strength: Right Lower Extremity: Hip flexors 3-/5. Hip abductors 3-/5. Hip external rotators 3-/5. Hip internal rotators 3-/5. Knee flexors 3-/5. Knee extensors 3- /5. Ankle dorsiflexors/evertors 2-/5. Ankle plantarflexors/invertors 2-/5. Left Lower Extremity: Hip flexors 3-/5. Hip abductors 3-/5. Hip external rotators 3-/5. Hip internal rotators 3-/5. Knee flexors 3-/5. Knee extensors 3- /5. Ankle dorsiflexors/evertors 2-/5. Ankle plantarflexors/invertors 2-/5. Bed Mobility/Transfers: Rolling minimal assist Supine to sit minimal assist Sit to supine minimal assist Sit to stand contact-guard assist Stand to sit contact-guard Bed to chair contact guard assist Chair to bed contact-guard assist Gait: Distance of 50 feet requiring contact-guard assist. Shellie significantly decreased. Step height decreased. Step length decreased. Decreased dorsiflexion and B sides. Balance: Static Sitting: Good Dynamic Sitting: Fair Static Standing: Fair Dynamic Standing: Poor Special Tests: Mobility Limitations Standardized Measure [facility] AM-PAC 6 clicks Basic Mobility Inpatient Short Form: Raw Score: 18 CMS Score: 47% deficit Informed Consent/Education: Patient instructed in purpose of PT consult. Assessment: Patient requires assistance of 1 person for all bed mobility, transfer, and distance ambulation using the front wheeled walker due to pre- existing Parkinson's disease, balance impairment, and pain level. Patient will have adequate support at home and has a scheduled surgery tomorrow at [facility] for his back. Has all the equipment he needs at home. Patient did not verbalize any suicidal ideation throughout session. Patient presents with clinical signs and symptoms consistent with current/admitting diagnoses that have resulted to mobility limitations, gait instability, generalized weakness, and impairment of motor control as demonstrated by the following impairment level findings: 1. Decreased strength to BLE major muscle groups 2. Impaired sitting/standing balance 3. Impaired activity tolerance 4. Limitation of joint range of motion in B hips, knees, and ankles Impairments are contributing to the following functional limitations: 1. Dependent bed mobility skills 2. Increased dependence with transfers 3. Inability to safely ambulate without assistive device and physical assistance 4. Increase completion time for mobility ADL performance 5. Increased fall risk 6. Inability to negotiate steps alone safely 7. Inability to return to prior living environment at this time [place] [id number] high complexity based on the following: History: 75-year-old male with past medical history as indicated above Examination: Demonstrable impairment in strength, balance, and mobility level with underlying impairments and functional limitations as exhibited above as well as deficit score of 47% utilizing the [facility] Mobility Inpatient Short Form Presentation: Evolving Decision Makin high complexity Goals: N/A. PT evaluation only for safety consult for discharge. Plan of Care/Treatment Plan: N/A. PT evaluation only for safety consult for discharge. DISCHARGE RECOMMENDATIONS: Home when medically cleared by orthopedic surgeon. Patient to have back surgery at [facility] on 02/12/2021. TREATMENT CODE/TIME: 24772 x 25 minutes, [id number] x 11 minutes beginning at 13:32 PM. Thank you for the opportunity to participate in the care of this patient. Rosalba Santos PT, DPT, CLT [facility] [place], [place]
--- NOTE | 2021-02-11 13:33 | PDOC.CMIN ---
- If Service Date Differs Date of service: 02/11/21 Time of Service: 13:33 Care Management Initial Assess REASON FOR HOSPITALIZATION:: Spinal stenosis PAST MEDICAL HISTORY/PAST SURGICAL HISTORY:: Medical History. ADD (attention deficit disorder). Anxiety. Arthralgia of left acromioclavicular joint (02/02/17). Atrophy of right hand muscles (03/10/16). Blood glucose elevated. BPH (benign prostatic hyperplasia). CAD (coronary artery disease). Claudication. bilateral. Constipation due to slow transit (03/10/16). Contracture of hand. Depression. Dizziness. History of ST elevation myocardial infarction (STEMI). 2013-F/U with cardiology Dr. Salazar. Hyperlipidemia. Hypothyroidism. Inguinal hernia. left and right. Insomnia. Iron deficiency anemia. Left hip pain. Low back pain. Lumbosacral radiculopathy (11/11/14). [place] (myocardial infarction). 2014. Mild cognitive impairment (05/19/16). Nausea. Orthostatic hypotension due to Parkinson's disease (02/09/18). Parkinson disease (03/10/16). Peripheral artery disease. Restless leg syndrome (08/08/17). SVT (supraventricular tachycardia). Trochanteric bursitis of left hip. Urinary retention. Vertigo. Surgical History. Cardiac cath. 2013. Colonoscopy - IV Sedation (07/27/16). LAURENT to RCA x 3. 2013. Hernia Repair, Incisional (09/28/16). right femoral. x5. History of carpal tunnel surgery of left wrist. Incomplete tear of left rotator cuff (02/02/17). s/p repair March 2017. medial facetectomy L4-5. 01/30/15. Repair of inguinal hernia. [facility] repair >50 years ago. Repair of umbilical hernia. S/P bilateral cataract extraction. S/P lumbar spine operation. 05/10/19; Dr. Hinojosa PREVIOUS FUNCTIONAL STATUS/SOCIAL/FAMILY SUPPORTS:: Dayne lives in [place] with his , Maite. He has two daughters, Mary and Ghislaine. 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 He suffers from chronic pain, but is independent with ADL's. CURRENT FUNCTIONAL STATUS:: Dayne was lying in bed when CM met with him. He reported that his pain is better controlled today. He did appear confused, and asked where he was at one point, but oriented himself quickly. He reported that he was nervous about his upcoming surgery, scheduled for tomorrow at [facility]. Per provider, he will be discharged home today in preparation for his surgery, and will be prescribed pain medication to get him through the night. CM will continue to follow. ADVANCE DIRECTIVES:: None on file. Has patient been provided with info about the portal/API?: Yes Did the patient sign up for the portal?: Yes (previously) CODE STATUS:: Full Code INSURANCE COVERAGE / FINANCIAL ISSUES:: MCR/ BCBS CURRENT HOME/COMMUNITY SERVICES/EQUIPMENT:: HH RN, PT PRIMARY CARE PHYSICIAN:: Margaret Jorge POTENTIAL DISCHARGE NEEDS:: Follow up appointments, resumption of services. PATIENT/FAMILY EDUCATION NEEDS:: Review discharge instructions regarding activity levels and medications, discussion of self care needs and goals of care. ANTICIPATED BARRIERS TO DISCHARGE:: None identified. TRANSPORTATION:: Via private vehicle by family. PLAN:: Anticipate Dayne will return home when medically cleared. His will drive him home via private vehicle. He will follow up with his PCP and discharge plan of care. CM will continue to follow.
--- NOTE | 2021-02-11 14:11 | NUR.NOTE ---
Nursing Note: At 1405 on 02/11/21, this RN answered a call from the pt.'s , Raya Gomes. RN updated the pt.'s regarding the pt.'s mentation, VS, pain level, head to toe assessment, plan of care, possibility of discharge, etc. Pt.'s verbalized understanding and presented with a few questions that were answered. RN will reassess as necessary.
--- NOTE | 2021-02-11 14:39 | W.PM.DS.N ---
Date of service: 02/11/21 Time of Service: 14:39 DS: Diagnosis Discharge Diagnosis (1) Low back pain: Status: Acute Asessment and Plan: Acute on chronic (2) Lumbar disc disease: Status: Chronic (3) Suicidal ideation: Status: Resolved Asessment and Plan: Cleared by mental health (4) Anxiety: Status: Chronic (5) COVID-19 ruled out by laboratory testing: Status: Ruled-out Discharge Plan Disposition Patient Disposition: HOME W/HOME HEALTH SERVICE Condition: Improving Discharge Details Reason For Visit: SPINAL STENOSIS, SUICIDAL IDEATION Admit Date/Time: 02/10/21 14:07 Admit Provider: Chastity Workman Attending Provider: Chastity Workman Primary Care Provider: Margaret Jorge [facility] Course Hospital Course: Mr Gomes is a 75 year old male with PMHx of chronic low back pain and known spinal stenosis who is expecting surgery by Dr Hinojosa tomorrow, who is on chronic opioid therapy, as well as h/o anxiety, Parkinson's disease, and mild cognitive impairment, who was observed on [facility] hospitalist service from 02/10/21 until 02/11/21 for pain control. The patient had presented to [facility] ED on 02/10/21 with suicidal ideation due to his back pain. Once it was addressed, his suicidal ideation resolved, and he was cleared by mental health. He had an MRI of his lower back which showed multilevel degenerative changes of the spine with neural foraminal stenoses and was unchanged from prior. He had a preserved rectal tone in the ED. The patient was treated with IV dilaudid as well as continuation of his home medications while at our facility. He was evaluated by PT today and felt to be near his baseline. Anxiety does seem to be one of his complaints as well, which he describes as tension. At this point, he can be discharged home on increased dose of norco and prednisone with follow up for his previously scheduled surgery with Dr Hinojosa tomorrow. He does require a walker to ambulate which he has at home. Home Meds and New Rx's Prescriptions: New prednisone 20 mg Tablet 60 mg PO DAILY Qty: 20 RF: 0 Continued docusate sodium 100 mg tablet 100 mg PO TID RF: 0 loratadine [Claritin] 10 mg tablet 10 mg PO DAILY RF: 0 entacapone 200 mg tablet 200 mg PO QID Qty: 360 RF: 3 alfuzosin 10 mg tablet extended release 24 hr 10 mg PO DAILY RF: 0 gabapentin 600 mg tablet 600 mg PO QID RF: 0 carbidopa-levodopa 25-100 mg tablet extended release 1 tab PO QHS Qty: 90 RF: 3 senna 8.6 mg capsule 17.2 mg PO QHS PRNRF: 0 sertraline [Zoloft] 100 MG tablet 200 mg PO DAILY RF: 0 solifenacin [Vesicare] 5 MG tablet 5 mg PO DAILY RF: 0 levothyroxine 50 mcg tablet 88 mcg PO DAILY RF: 0 nitroglycerin [Nitrostat] 0.4 MG tablet, sublingual 0.4 mg Sublingual PRN PRNRF: 0 atorvastatin [Lipitor] 80 mg tablet 80 mg PO HS RF: 0 ibuprofen [Ibuprofen IB] 200 MG tablet 600 mg PO TID PRNRF: 0 baclofen 10 mg tablet 10 mg PO HS PRNRF: 0 psyllium husk [Metamucil] 0.52 gram Capsule 0.52 - 1.04 g PO DAILY RF: 0 carbidopa-levodopa 25-100 mg tablet 1 tab PO QID RF: 0 famotidine [Pepcid] 40 mg tablet 40 mg PO QHS Qty: 90 RF: 0 hydrocodone-acetaminophen 5-325 mg tablet 1 tab PO Q6H RF: 0 morphine 10 mg capsule,extend.release pellets 10 mg PO Q12H RF: 0 magnesium hydroxide [Milk of Magnesia] 400 mg/5 mL Suspension 400 mg PO DAILY PRNRF: 0 bisacodyl 10 mg Suppository 10 mg ME DAILY PRNRF: 0 Changed hydrocodone-acetaminophen 5-325 mg tablet 1 - 2 tab PO Q6H PRN MDD 40 mg of hydrocodone PRN (Reason: pain) Qty: 20 RF: 0 diazepam 2 mg Tablet 2 mg PO TID PRN MDD 6 mg PRN (Reason: muscle spasm) Qty: 6 RF: 0 Discontinued acetaminophen [Acetaminophen Extra Strength] 500 mg tablet 1,000 mg PO TID PRNRF: 0 prednisone 20 mg tablet 40 mg PO DAILY RF: 0 Discharge Instructions Instructions: Back Pain (ED) Additional Instructions: Follow up for your back surgery tomorrow. Return to the hospital with any bleeding, fever, chest pain, or shortness of breath. Care Plan Goals: Home with resumption of home health services Stand Alone Forms: Nursing Discharge Form Referrals: Margaret Jorge [Primary Care Provider] - 02/23/21 12:45 pm (if you need to reschedule just call) Activity:: Activity as Tolerated Equipment/Supplies:: No Equipment Needed Diet:: As Tolerated Discharge Orders Discharge Orders: Discharge Order (Routine); Ordered 02/11/21 Ordered By: Chastity Workman DS: Summary Time Spent with Patient providing and/or coordinating discharge services: Greater than 30 minutes Status at Discharge Functional status at discharge: uses cane/walker Overall status at discharge: patient is progressing back to baseline Mental Status: mental status grossly normal Speech and Movement: speech and movement normal Mood: congruent mood Affect: normal affect Exam Narrative Exam Narrative: General: anxious elderly male, A&Ox2, cooperative, appears angry HEENT: EOMI, MMM Heart: RRR, no m/r/g Lungs: CTAB Abdomen: soft, nontender, nondistended Extremities: no edema BLE's, able to move both BLE's Psych Mental Status: mental status grossly normal Speech and Movement: speech and movement normal Mood: congruent mood DS: Data Vitals/I&O Vitals and I&O: Vital Signs Temperature 37.3 C 02/11/21 11:34 Temperature Source Temporal Artery Scan 02/11/21 11:34 Pulse 68 02/11/21 11:34 Pulse Rhythm Regular 02/11/21 03:28 Respiratory Rate 16 02/11/21 11:34 Respiratory Effort Non-Labored 02/11/21 03:28 Respiratory Depth Normal 02/11/21 03:28 Respiratory Pattern Normal 02/11/21 03:28 Blood Pressure 166/80 H 02/11/21 11:41 Blood Pressure Position Supine 02/10/21 09:13 Pulse Oximetry 95 02/11/21 11:34 Oxygen Delivery Method Room Air 02/11/21 11:34 Oxygen Flow Rate 0 02/11/21 11:34 Pain Level 0 02/11/21 11:34 Comment 02/11/21 11:22 Intake & Output 02/10/21 02/11/21 02/11/21 23:59 11:59 23:59 Intake Total 825 / 825 2725.0 / 2725.0 Output Total 1560 / 1560 950 / 1150 200 / 1150 Balance -735 / -735 1775.0 / 1575.0 -200 / 1575.0 Weight 75.4 kg Intake: IV 825 / 825 1855.0 / 1855.0 Oral 870 / 870 Output: Urine 1560 / 1560 950 / 1150 200 / 1150 Other: Urine Color Yellow Dale Straw Urine Appearance Clear Clear Clear Urine Odor None Normal Normal Comment pt discarded urine in the tiolet before i was able to note the amount he voided Pt. voided 350 mL of urine and was bladder scanned for an average PVR of 115 mL of urine (192/142/12). Charge nurse notified. RN will reassess as necessary. Void x1 in the urinal. Voiding Methods Toilet Toilet Urinal Data Completed and Pending Completed studies during hospitalization [Text1]: MRI lumbar spine: No change in appearance of the lumbar spine since 12/22/2020. Multilevel degenerative changes in the lumbar spine with multilevel neural foraminal stenosis. Labs on day of discharge: Labs from last 24 hours 02/10/21 14:11 COVID-19 Source Cancelled SARS-CoV-2 (PCR) Cancelled Preliminary micro results at discharge 02/10/21 13:49 Urine Culture - Preliminary Urine - Reflex from [facility] Medical History ADD (attention deficit disorder) Anxiety Arthralgia of left acromioclavicular joint (02/02/17) Atrophy of right hand muscles (03/10/16) Blood glucose elevated BPH (benign prostatic hyperplasia) CAD (coronary artery disease) Claudication bilateral Constipation due to slow transit (03/10/16) Contracture of hand Depression Dizziness History of ST elevation myocardial infarction (STEMI) 2014-F/U with cardiology Dr. Salazar Hyperlipidemia Hypothyroidism Inguinal hernia left and right Insomnia Iron deficiency anemia Left hip pain Low back pain Lumbosacral radiculopathy (11/11/14) [place] (myocardial infarction) 2014 Mild cognitive impairment (05/19/16) Nausea Orthostatic hypotension due to Parkinson's disease (02/09/18) Parkinson disease (03/10/16) Peripheral artery disease Restless leg syndrome (08/08/17) SVT (supraventricular tachycardia) Trochanteric bursitis of left hip Urinary retention Vertigo Surgical History Cardiac cath 2013 Colonoscopy - IV Sedation (07/27/16) LAURENT to RCA x 3 2013 Hernia Repair, Incisional (09/28/16) right femoral x5 History of carpal tunnel surgery of left wrist Incomplete tear of left rotator cuff (02/02/17) s/p repair March 2017 medial facetectomy L4-5 01/30/15 Repair of inguinal hernia RIH repair >50 years ago Repair of umbilical hernia S/P bilateral cataract extraction S/P lumbar spine operation 05/10/19; Dr. 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
[2021-02-11 15:17] VITALS: BP 131/80; PULSE 70; RESP 16; TEMP 36.6; O2SAT 97
--- NOTE | 2021-02-11 16:01 | PDOC.CMDIS ---
- If Service Date Differs Date of service: 02/11/21 Time of Service: 16:01 LACE Index Scoring Tool - Questions: Length of Stay (in days): 1 Acuity (Admit via E.D.?): Yes Comorbidities: Previous M.I. E.D. Visits: 4 - Answers: Total Score: 9 Risk of Readmission: Low Risk Care Management Discharge Reason for Hospitalization: Spinal stenosis Discharge Plan: Dayne will return home today to prepare for his surgery tomorrow at [facility]. He reported that he is nervous, and it feels like a dream, as the surgery is so close. He will have a resumption of services on Tuesday, after his surgery, which CM communicated with [facility]. His daughter will drive him home via private vehicle. He will follow up with his PCP and discharge plan of care. Patient/Family Education Needs: Review discharge instructions regarding activity levels and medications, discussion of self care needs and goals of care. Services Needed at Discharge: Home Health Care Services (HH RN, PT)
== END 2021-02-11 15:40 | disposition home health service (06) ==
LOC: ER 14:40 → MS 15:19
PROVIDERS: Admitting Provider Internal Medicine; Emergency Provider Emergency Medicine; PCP Nurse Practitioner Family; Visit Provider Internal Medicine
DX: M51.36 Other intervertebral disc degeneration, lumbar region (principal); M54.5 Low back pain; G89.29 Other chronic pain; R45.851 Suicidal ideations; F41.9 Anxiety disorder, unspecified; Z03.818 Encounter for observation for suspected exposure to other biological agents ruled out
CPT/HCPCS: 36415; 80053; 80307; 87635; 96361; 96374; 96375; 97163; 97530; 99217; 99219; 99285; 72148; 80320; 80329; 81003; 81015; 84443; 85025; 87086; 99284; G0378; J1100; J1644; J2060; J7512

== ENCOUNTER 2021-02-19 15:08 | Outpatient (REF) | payer MEDICARE, BC, SELFPAY ==
[2021-02-19 15:57] LABS: Bilirubin Negative (Negative); Blood Negative (Negative); Clarity Clear (Clear); Glucose Negative (Negative); Ketones Negative (Negative); Leukocyte Esterase Negative (Negative); Nitrite Negative (Negative); Urobilinogen 0.2 EU/dL (Up TO 0.2); pH 7.5 (5-8)
[2021-02-19 16:15] LABS: Anion Gap 7.6 mmol/L (3-11); BUN 17 mg/dL (7-18); CO2 26.4 mmol/L (21.0-32.0); CREATININE 0.9 mg/dL (0.70-1.30); Calcium 8.6 mg/dL (8.5-10.1); Chloride 103 mmol/L (98-107); Glucose 105 mg/dL (74-106); Magnesium 2.2 mg/dL (1.8-2.4); Potassium 3.8 mmol/L (3.5-5.1); Sodium 137 mmol/L (136-145)
== END 2021-02-19 15:09 | disposition home or self-care (01) ==
LOC: NCHCN 15:08
PROVIDERS: PCP Nurse Practitioner Family; Visit Provider Nurse Practitioner Family
DX: N40.1 Benign prostatic hyperplasia with lower urinary tract symptoms (principal); M62.838 Other muscle spasm; I95.1 Orthostatic hypotension; R82.998 Other abnormal findings in urine
CPT/HCPCS: 80048; 81003; 83735; 87086

== ENCOUNTER → 2021-02-23 13:54 | Outpatient (BNVA) | payer MEDICARE, BC, SELFPAY | PROVIDERS: PCP Nurse Practitioner Family; Referring Provider Nurse Practitioner Family; Visit Provider Psychiatry & Neurology Neurology | DX: G20 Parkinson's disease (principal); G31.84 Mild cognitive impairment of uncertain or unknown etiology; M54.17 Radiculopathy, lumbosacral region; G25.81 Restless legs syndrome; R33.8 Other retention of urine; M54.5 Low back pain; I73.9 Peripheral vascular disease, unspecified | CPT/HCPCS: 99215 ==

== ENCOUNTER 2021-02-23 14:48 | Emergency (ER) | payer MEDICARE, BC, SELFPAY ==
[2021-02-23 15:01] VITALS: BP 177/83; PULSE 80; RESP 18; TEMP 36.3; O2SAT 100
--- NOTE | 2021-02-23 15:26 | NUR.NOTE ---
pts was allowed in to the pt bedside. she states that she is vaccinated but does not have her card. she had some meds that pt was due for and was allowed to give them per Dr gerard Nursing Note:
--- NOTE | 2021-02-23 15:32 | ED.GENADUL_ITS ---
Discharge Plan Disposition Patient Disposition: HOME Condition: Good Discharge Details Clinical Impression: Acute urinary retention Primary Care Provider: Margaret Jorge ED Provider: Nav Arellano Home Meds and New Rx's Prescriptions: Continued loratadine [Claritin] 10 mg tablet 10 mg PO DAILY RF: 0 entacapone 200 mg tablet 200 mg PO QID Qty: 360 RF: 3 alfuzosin 10 mg tablet extended release 24 hr 10 mg PO DAILY RF: 0 gabapentin 600 mg tablet 600 mg PO QID RF: 0 carbidopa-levodopa 25-100 mg tablet extended release 1 tab PO QHS Qty: 90 RF: 3 senna 8.6 mg capsule 17.2 mg PO QHS PRNRF: 0 aspirin 81 mg tablet,chewable 81 mg PO DAILY RF: 0 clonazepam 0.5 mg tablet 0.5 mg PO TID RF: 0 prednisone 20 mg tablet 10 mg PO DAILY RF: 0 naloxone 2 mg/actuation spray,non-aerosol intranasal RF: 0 magnesium 250 mg tablet 250 mg PO DAILY RF: 0 cholecalciferol (vitamin D3) 25 mcg (1,000 unit) capsule 25 mcg PO DAILY RF: 0 famotidine [Pepcid] 40 mg tablet 40 mg PO DAILY RF: 0 clopidogrel [Plavix] 75 mg tablet 75 mg PO DAILY RF: 0 ferrous gluconate 324 mg (37.5 mg iron) tablet 324 mg PO DAILY RF: 0 sertraline [Zoloft] 100 MG tablet 200 mg PO DAILY RF: 0 solifenacin [Vesicare] 5 MG tablet 5 mg PO DAILY RF: 0 nitroglycerin [Nitrostat] 0.4 MG tablet, sublingual 0.4 mg Sublingual PRN PRNRF: 0 atorvastatin [Lipitor] 80 mg tablet 80 mg PO HS RF: 0 baclofen 10 mg tablet 10 mg PO HS PRNRF: 0 psyllium husk [Metamucil] 0.52 gram Capsule 0.52 - 1.04 g PO DAILY RF: 0 carbidopa-levodopa 25-100 mg tablet 1.5 tab PO QID RF: 0 famotidine [Pepcid] 40 mg tablet 40 mg PO QHS Qty: 90 RF: 0 magnesium hydroxide [Milk of Magnesia] 400 mg/5 mL Suspension 400 mg PO DAILY PRNRF: 0 bisacodyl 10 mg Suppository 10 mg [place] DAILY PRNRF: 0 No Action levothyroxine 88 mcg tablet 88 mcg PO DAILY AM RF: 0 Discharge Instructions Instructions: Urinary Retention in Men (ED), Byers Catheter Placement and Care (ED) Additional Instructions: We have placed a Byers catheter. Please leave this in place until you are seen and reassessed by your primary care provider. Your urinary retention may potentially be a side effect from your clonazepam. Please only take as needed half of a tablet for anxiety or spasm. Otherwise do not take the medication. If you notice any worsening of your symptoms, or any new symptoms such as vomiting, diarrhea, fever, chills, shortness of breath, chest pain, worsening numbness, worsening weakness, or fainting , please return immediately to the emergency department for reevaluation. Please follow up with your primary care provider at your scheduled appointment tomorrow. As always, it was a pleasure participating in your medical care today. Referrals: Margaret Jorge [Primary Care Provider] - Medical Decision Making 75-year-old male with a complicated past medical history of chronic back pain and radiculopathy with subsequent lumbar surgery a few weeks ago, parkinsonian symptoms and Parkinson's disease, chronic lower extremity weakness, peripheral vascular disease, myocardial infarction, anxiety, prostatic hyperplasia, arthritis, mild cognitive impairment, who presents today for urinary retention. He was sent from Dr. Olsen office for potential Byers. Over the last week the patient has had increased urinary retention and small voids throughout the day. He denies any burning, fever or chills. He is a poor historian at baseline, and his is mainly able to add to the history. She is at bedside. Currently the patient states that his back pain is resolved and otherwise unchanged and he feels well back there but is just the urinary retention that is bothering him. He has been urinating small amounts every few hours. Aside for pressure in his pelvic region he denies any pain. He denies any new weakness in his lower extremities or new numbness or tingling. No other complaints at this time. Of note he did recently start clonazepam about a week ago, and this is when his urinary retention symptoms began. Physical exam demonstrates baseline strength and sensation, no clinical evidence of cauda equina syndrome. I suspect the patient's urinary retention is a component/combination of his BPH and his new clonazepam use. It does not seem to be related to a neurologic deficit at this time. Patient is insistent on having a Byers catheter as he is tired of getting up and down throughout the day and night to urinate. No clinical evidence of infection at all. No fever or chills. No tachycardia. Bladder scan shows about 450 cc. Byers was placed, patient will be given a leg bag to go home with. I did contact Margaret Jorge and we discussed the case together. She does recommend transitioning the clonazepam to half a tablet as needed. Patient has follow-up appointment tomorrow morning. On reassessment after this the decision was then be made whether or not urology follow-up is indicated. I have extensively reviewed the treatment plan and discharge instructions with the patient and their family. I have addressed all patient concerns at this time. The patient and family was made aware of what symptoms to monitor for that would warrant a return to the emergency department. Discussed the plan with the patient and family, they demonstrate verbal understanding and agreement with our assessment and plan at this time. The documentation in this chart was dictated using [employer] dictation software. Please excuse any dictation errors. HPI General Date/Time Provider Initiated Documentation: 02/23/21 14:54 . HPI Narrative: 75-year-old male with a complicated past medical history of chronic back pain and radiculopathy with subsequent lumbar surgery a few weeks ago, parkinsonian symptoms and Parkinson's disease, chronic lower extremity weakness, peripheral vascular disease, myocardial infarction, anxiety, prostatic hyperplasia, arthritis, mild cognitive impairment, who presents today for urinary retention. He was sent from Dr. Olsen office for potential Byers. Over the last week the patient has had increased urinary retention and small voids throughout the day. He denies any burning, fever or chills. He is a poor historian at baseline, and his is mainly able to add to the history. She is at bedside. Currently the patient states that his back pain is resolved and otherwise unchanged and he feels well back there but is just the urinary retention that is bothering him. He has been urinating small amounts every few hours. Aside for pressure in his pelvic region he denies any pain. He denies any new weakness in his lower extremities or new numbness or tingling. No other complaints at this time. Of note he did recently start clonazepam about a week ago, and this is when his urinary retention symptoms began. Related Data Home Medications Medication Instructions Recorded Confirmed nitroglycerin [Nitrostat] 0.4 mg SUBLINGUAL PRN PRN 11/23/13 02/23/21 sertraline [Zoloft] 200 mg PO DAILY tab-cap 10/28/14 02/23/21 solifenacin [Vesicare] 5 mg PO DAILY tab-cap 01/05/17 02/23/21 loratadine 10 mg tablet 10 mg PO DAILY 03/05/20 02/23/21 atorvastatin 80 mg tablet 80 mg PO HS 08/21/20 02/23/21 entacapone 200 mg tablet 200 mg PO QID #360 tab 08/21/20 02/23/21 alfuzosin 10 mg tablet,extended 10 mg PO DAILY 11/18/20 02/23/21 release 24 hr carbidopa ER 25 mg-levodopa 100 mg 1 tab PO QHS #90 tab 11/18/20 02/23/21 tablet,extended release gabapentin 600 mg tablet 600 mg PO QID tab 11/18/20 02/23/21 famotidine [Pepcid] 40 mg PO QHS #90 tab 11/26/20 02/23/21 baclofen 10 mg PO HS PRN 01/12/21 02/08/21 psyllium husk [Metamucil] 0.52 - 1.04 g PO DAILY 01/12/21 02/23/21 sennosides 8.6 mg capsule 17.2 mg PO QHS PRN 01/29/21 02/23/21 bisacodyl 10 mg NH DAILY PRN 02/08/21 02/23/21 magnesium hydroxide [Milk of 400 mg PO DAILY PRN 02/08/21 02/23/21 Magnesia] aspirin 81 mg chewable tablet 81 mg PO DAILY 02/23/21 02/23/21 carbidopa 25 mg-levodopa 100 mg 1.5 tab PO QID tab 02/23/21 02/23/21 tablet cholecalciferol (vitamin D3) 25 25 mcg PO DAILY 02/23/21 02/23/21 mcg (1,000 unit) capsule clonazepam 0.5 mg tablet 0.5 mg PO TID 02/23/21 02/23/21 clopidogrel 75 mg tablet 75 mg PO DAILY 02/23/21 02/23/21 famotidine 40 mg tablet 40 mg PO DAILY 02/23/21 02/23/21 ferrous gluconate 324 mg (37.5 mg 324 mg PO DAILY 02/23/21 02/23/21 iron) tablet levothyroxine 88 mcg PO DAILY AM 02/23/21 02/23/21 magnesium 250 mg tablet 250 mg PO DAILY 02/23/21 02/23/21 naloxone 2 mg/actuation nasal spray mg INTRANASAL 02/23/21 prednisone 20 mg tablet 10 mg PO DAILY tab 02/23/21 02/23/21 Previous Rx's Medication Instructions Recorded entacapone 200 mg tablet 200 mg PO QID #360 tab 08/21/20 carbidopa ER 25 mg-levodopa 100 mg 1 tab PO QHS #90 tab 11/18/20 tablet,extended release famotidine [Pepcid] 40 mg PO QHS #90 tab 11/26/20 Allergies Allergy/AdvReac Type Severity Reaction Status Date / Time mirabegron [From Myrbetriq] Allergy Mild unknown Verified 02/23/21 15:13 finasteride AdvReac Severe Hypotension Verified 02/23/21 15:13 General Stated Complaint: Urinary MARTIN: 3 Review of Systems All systems reviewed & are unremarkable except as noted in HPI and below PFSH Medical History ADD (attention deficit disorder) Anxiety Arthralgia of left acromioclavicular joint (02/02/17) Atrophy of right hand muscles (03/10/16) Blood glucose elevated BPH (benign prostatic hyperplasia) CAD (coronary artery disease) Claudication bilateral Constipation due to slow transit (03/10/16) Contracture of hand Depression Dizziness History of ST elevation myocardial infarction (STEMI) 2014-F/U with cardiology Dr. Salazar Hyperlipidemia Hypothyroidism Inguinal hernia left and right Insomnia Iron deficiency anemia Left hip pain Low back pain Lumbosacral radiculopathy (11/11/14) [place] (myocardial infarction) 2014 Mild cognitive impairment (05/19/16) Nausea Orthostatic hypotension due to Parkinson's disease (02/09/18) Parkinson disease (03/10/16) Peripheral artery disease Restless leg syndrome (08/08/17) SVT (supraventricular tachycardia) Trochanteric bursitis of left hip Urinary retention Vertigo Surgical History Cardiac cath 2013 Colonoscopy - IV Sedation (07/27/16) LAURENT to RCA x 3 2013 Hernia Repair, Incisional (09/28/16) right femoral x5 History of carpal tunnel surgery of left wrist Incomplete tear of left rotator cuff (02/02/17) s/p repair March 2017 medial facetectomy L4-5 01/30/15 Repair of inguinal hernia RIH repair >50 years ago Repair of umbilical hernia S/P bilateral cataract extraction S/P lumbar spine operation 05/10/19; Dr. 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 3.ENT: Atraumatic external nose and ears. Moist MM. Neck: Symmetric, trachea midline, No thyromegaly. 4.CVS: +S1/S2, No murmurs or gallops. Peripheral pulses 2+ and equal in all extremities. Brisk capillary refill in all extremities. 5.RESP: Unlabored respiratory effort. Clear to auscultation bilaterally. No wheezes rales or rhonchi 6.GI: Soft, Nontender/Nondistended, No hepatosplenomegaly. No guarding or rebound. No overly distended suprapubic mass. Genital exam is unremarkable. No penile or scrotal tenderness. Patient does have intact genital sensation. 7.MSK: Normocephalic/Atraumatic, Extremities w/o deformity or ttp No cyanosis or clubbing, 2 out of 4 muscle strength in lower extremities bilaterally, demonstrates good dorsiflexion of the great toes bilaterally and good plantar flexion. Patient demonstrates no midline thoracic cervical or lumbar spine tenderness. His incision site is clean dry and intact with no fluctuance redness or drainage. 8.Skin: Warm, Dry. No rashes or lesions. 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 Sensation grossly intact, no saddle anesthesia. Normal sensation in the groin region. Normal rectal tone. Normal anterior and lateral thigh sensation. 10.Psych: (AAO) x3. Appropriate mood and affect Course Vital Signs Vital signs: Vital Signs Temperature 36.3 C L 02/23/21 15:01 Pulse 80 02/23/21 15:01 Respiratory Rate 18 02/23/21 15:01 Blood Pressure 177/83 H 02/23/21 15:01 Pulse Oximetry 100 02/23/21 15:01 Temperature 36.3 C L 02/23/21 15:01 Temperature Source Temporal Artery Scan 02/23/21 15:01 Pulse 80 02/23/21 15:01 Respiratory Rate 18 02/23/21 15:01 Respiratory Effort 02/23/21 15:04 Blood Pressure 177/83 H 02/23/21 15:01 Blood Pressure Position Supine 02/23/21 15:01 Pulse Oximetry 100 02/23/21 15:01 Oxygen Delivery Method Room Air 02/23/21 15:01 Oxygen Flow Rate 0 02/23/21 15:01 Procedures Catheter Insertion (Urinary) Bladder Scan/US before Catheterization: Yes Estimated amount of urine (mL): 400 Preparation: Providone-Iodine Type of Catheter Inserted: 2 way Catheter Hungarian Size: 16 Catheter Balloon Size (mls): 10 Topical Anesthesia Used: Yes Results: successfully catherized-immediate flow Patient Tolerated Procedure: well Complications: none
[2021-02-23 16:00] VITALS: BP 152/76; PULSE 79; RESP 16; TEMP 36.9; O2SAT 98
--- NOTE | 2021-02-23 16:04 | NUR.NOTE ---
Nursing Note: rodriguez insertionx3 unsuccessful. 16f, 14f, and 6f coude used. no urine return. blood noted in rodriguez. ER MD aware. ER MD sts will ty insertion of rodriguez. pt in nad at this time. at bedside.
[2021-02-23] MEDS: Lidocaine 2% Jelly 6 ML SYR ×2 (16:34)
== END 2021-02-23 16:35 | disposition home or self-care (01) ==
PROVIDERS: Emergency Provider Student in an Organized Health Care Education/Training Program; PCP Nurse Practitioner Family
DX: N40.1 Benign prostatic hyperplasia with lower urinary tract symptoms (principal); R33.8 Other retention of urine; T42.4X5A Adverse effect of benzodiazepines, initial encounter
CPT/HCPCS: 51703; 99215; 99283; 99284

== ENCOUNTER 2021-02-24 11:08 | Outpatient (REF) | payer MEDICARE, BC, SELFPAY ==
[2021-02-24 16:15] LABS: HCT 35.9 % (40.0-50.0); HGB 12.2 g/dL (13.5-17.5); MCH 30.7 pg (27.0-33.0); MCV 90.2 fL (80-95); Platelet Count 246 10^3/uL (130-400); RBC 3.98 10^6/uL (4.36-5.78); RDW 12.5 % (11.8-14.1); RDW-SD 41.5 fL; WBC 9.53 10^3/uL (4.4-10.8)
[2021-02-24 17:17] LABS: Iron 43 ug/dL (65-175); Total Iron Binding Capacity 277 ug/dL (250-450); Transferrin Sat 16 % (20-55)
[2021-02-24 17:33] LABS: Calcium 8.5 mg/dL (8.5-10.1); Ferritin 198 ng/mL (26-388)
[2021-02-26 04:22] LABS: Vitamin D 25 Total 20.9 ng/mL (30-100)
== END 2021-02-24 11:09 | disposition home or self-care (01) ==
LOC: NCHCN 11:08
PROVIDERS: PCP Nurse Practitioner Family; Visit Provider Nurse Practitioner Family
DX: D50.9 Iron deficiency anemia, unspecified (principal); E55.9 Vitamin D deficiency, unspecified; F41.9 Anxiety disorder, unspecified; M62.838 Other muscle spasm
CPT/HCPCS: 82306; 85027; 82310; 82728; 83540; 83550

== ENCOUNTER → 2021-04-06 10:48 | Outpatient (BNVA) | payer MEDICARE, BC, SELFPAY | PROVIDERS: PCP Nurse Practitioner Family; Referring Provider Nurse Practitioner Family; Visit Provider Psychiatry & Neurology Neurology | DX: G20 Parkinson's disease (principal); G25.81 Restless legs syndrome; F41.9 Anxiety disorder, unspecified; G31.84 Mild cognitive impairment of uncertain or unknown etiology; K59.01 Slow transit constipation | CPT/HCPCS: 99215 ==

== ENCOUNTER → 2021-06-16 09:45 | Outpatient (BNVA) | payer MEDICARE, BC, SELFPAY | PROVIDERS: PCP Nurse Practitioner Family; Referring Provider Nurse Practitioner Family; Visit Provider Psychiatry & Neurology Neurology | DX: G20 Parkinson's disease (principal); G25.81 Restless legs syndrome; G31.84 Mild cognitive impairment of uncertain or unknown etiology; M54.17 Radiculopathy, lumbosacral region; R33.8 Other retention of urine; M54.5 Low back pain; I73.9 Peripheral vascular disease, unspecified | CPT/HCPCS: 99214 ==

== ENCOUNTER → 2021-08-24 10:03 | Outpatient (BNVA) | payer MEDICARE, BC, SELFPAY | PROVIDERS: PCP Nurse Practitioner Family; Visit Provider Internal Medicine Cardiovascular Disease | DX: I25.10 Atherosclerotic heart disease of native coronary artery without angina pectoris (principal); I21.9 Acute myocardial infarction, unspecified; I73.9 Peripheral vascular disease, unspecified | CPT/HCPCS: 99212; 99442 ==

== ENCOUNTER 2021-08-27 10:32 | Outpatient (REF) | payer MEDICARE, BC, SELFPAY ==
[2021-08-27 15:23] LABS: Abs Immature Grans 0.02 10^3/uL (0.0-0.06); Absolute Basophil Count 0.04 10^3/uL (0.0-0.2); Absolute Eosinophil Count 0.06 10^3/uL (0.0-0.7); Absolute Lymphocyte Count 1.35 10^3/uL (1.2-3.4); Absolute Monocyte Count 0.54 10^3/uL (0.1-0.8); Absolute Neutrophil Count 4.55 10^3/uL (1.2-6.7); Basophils % 0.6; Eosinophils % 0.9; HCT 32.7 % (40.0-50.0); HGB 10.6 g/dL (13.5-17.5); Immature Grans % 0.3; Lymphocytes % 20.6; MCH 28.7 pg (27.0-33.0); MCHC 32.4 % (32.0-36.0); MCV 88.6 fL (80-95); MPV 11.1 fL (8.0-11.0); Monocytes % 8.2; Neutrophils % 69.4; Nucleated RBC 0 %; Platelet Count 224 10^3/uL (130-400); RBC 3.69 10^6/uL (4.36-5.78); RDW 13.9 % (11.8-14.1); RDW-SD 44.9 fL; WBC 6.56 10^3/uL (4.4-10.8)
[2021-08-27 16:16] LABS: Ferritin 16 ng/mL (26-388)
[2021-08-27 17:03] LABS: Iron 60 ug/dL (65-175); Total Iron Binding Capacity 374 ug/dL (250-450); Transferrin Sat 16 % (20-55)
== END 2021-08-27 10:33 | disposition home or self-care (01) ==
LOC: NCHCN 10:32
PROVIDERS: PCP Nurse Practitioner Family; Visit Provider Nurse Practitioner Family
DX: D50.9 Iron deficiency anemia, unspecified (principal); M54.16 Radiculopathy, lumbar region; I25.10 Atherosclerotic heart disease of native coronary artery without angina pectoris
CPT/HCPCS: 82728; 83540; 83550; 85025

== ENCOUNTER 2021-09-17 16:23 | Outpatient (REF) | payer MEDICARE, BC, SELFPAY ==
[2021-09-17 17:09] LABS: HDL Cholesterol 47 mg/dL (40-60); LDL CHOLESTEROL 82 mg/dL (<100)
== END 2021-09-17 16:24 | disposition home or self-care (01) ==
LOC: NCHCN 16:23
PROVIDERS: PCP Nurse Practitioner Family; Visit Provider Nurse Practitioner Family
DX: I25.10 Atherosclerotic heart disease of native coronary artery without angina pectoris (principal); I73.9 Peripheral vascular disease, unspecified
CPT/HCPCS: 83721; 83718

== ENCOUNTER 2021-10-26 02:48 | Outpatient (CLI) | payer MEDICARE, BC, SELFPAY ==
--- NOTE | 2021-10-26 14:45 | DI.MRI_ITS ---
Exam(s) MR LUMBAR SPINE WO EXAM: MR LUMBAR SPINE WO CLINICAL HISTORY: LEG PAIN, M79.606. TECHNIQUE: Multiplanar multisequence MRI of the Lumbar spine was performed. COMPARISON: CR,XR XR LUMBAR SPINE AP, LAT from 02/08/2021 MR MR LUMBAR SPINE WO from 02/10/2021 FINDINGS: Compared to prior MRI scan of January 2021. Conus medullaris is at lower L1 level. There is no evidence of conus mass nor subjacent clumping of intrathecal nerve roots to suggest arachnoiditis. The distal thecal sac appears unremarkable.There i s no evidence of Tarlov intrasacral cysts nor other significant findings within the sacral canal Bones:There are no fractures nor ominous osseous lesions in the lumbar vertebral bodies and visualize d sacrum. With respect to the individual levels... T12-L1: Unremarkable L1-2: Relatively preserved disc height and signal. Annular bulging is again noted, more so right of center. This has slightly increased from the prior study. However, there is no large disc herniatio n. Central canal dimensions are lower normal. No prominent foraminal stenosis evident.Mild facet de generative changes. L2-3: This level again exhibits moderate disc space narrowing. There some annular bulging and there is a new left-sided disc herniation posterolateral left indenting the thecal sac and extending cephal ad for a distance of the 9 millimeters behind the left side of the L2 vertebral body. This extends p osteriorly 3 millimeters and is approximately 6 millimeters wide. Slightly indents the anterior left side of the thecal sac (not previously present). Central canal dimensions are lower normal.Mild tj rowing the exiting left neural foramen noted at level, slightly more so than previous. Exiting right neural foramen is patent. Mild degenerative facet joint changes. L3-4: Mild disc space narrowing. There is broad relatively symmetrical annular bulging at this level noted. No new prominent disc herniation. Central canal dimensions are lower normal. No foraminal stenosis on the right side. Mild foraminal stenosis on the left side at this level, unchanged.Mild f acet degenerative changes. L4-5: This level exhibits moderate disc space narrowing. Right-sided disc herniation at this level a ppears unchanged and extends posteriorly 7 millimeters and caudally for distance of 7 millimeters, un changed. This indents the right side of the thecal sac. Central canal dimensions are lower normal. Moderate narrowing of the exiting right neural foramen is noted and mild narrowing of the exiting le ft neural foramen. Moderate facet arthropathy noted bilaterally. L5-S1: This level exhibits chronic advanced disc space narrowing and anterior osseous lipping. Poste riorly there is mild annular bulging without a dominant disc herniation central. There is compressio n of the exiting right nerve root at this level between the overlying right L5 pedicle and subjacent annular bulging and this finding was previously present. A lesser amount of narrowing of the exiting left neural foramen is again noted, this related to slight asymmetric differences in height of the d isc left versus right sides. Soft tissues: paraspinal soft tissues appear unremarkable. IMPRESSION: 1. Multilevel findings as described individually above. 2. There is a new left-sided disc herniation at L2-3 level posterolateral left, this indenting the th ecal sac and extending cranially for a distance of 9 millimeters behind the left side of L2 vertebral body. Is thickened posteriorly 3 millimeters and is 6 millimeters wide and indents the anterior lef t side of the thecal sac. There is mild narrowing of the exiting left neural foramen also noted. Ri ght neural foramen appears patent. 3. Other findings as above. DATA REPOSITORY:
== END 2021-10-26 03:08 ==
PROVIDERS: PCP Nurse Practitioner Family; Visit Provider Physician Assistant Medical
DX: M51.26 Other intervertebral disc displacement, lumbar region (principal); M47.817 Spondylosis without myelopathy or radiculopathy, lumbosacral region; M51.37 Other intervertebral disc degeneration, lumbosacral region; M79.604 Pain in right leg
CPT/HCPCS: 72148

== ENCOUNTER 2021-12-09 12:57 | Outpatient (REF) | payer MEDICARE, BC, SELFPAY ==
[2021-12-09 20:21] LABS: HCT 37.5 % (40.0-50.0); MCH 29.5 pg (27.0-33.0); MCV 92.1 fL (80-95); MPV 10.9 fL (8.0-11.0); Platelet Count 229 10^3/uL (130-400); RBC 4.07 10^6/uL (4.36-5.78); RDW 12.8 % (11.8-14.1); RDW-SD 43.1 fL; WBC 6.65 10^3/uL (4.4-10.8)
[2021-12-09 20:30] LABS: Iron 99 ug/dL (65-175); Total Iron Binding Capacity 339 ug/dL (250-450); Transferrin Sat 29 % (20-55)
[2021-12-09 20:44] LABS: ALT 17 U/L (16-63); AST 20 U/L (15-37); Ferritin 47 ng/mL (26-388)
[2021-12-09 21:05] LABS: Creatine Kinase 120 U/L (39-308)
== END 2021-12-09 12:58 | disposition home or self-care (01) ==
LOC: NCHCN 12:57
PROVIDERS: PCP Nurse Practitioner Family; Visit Provider Nurse Practitioner Family
DX: D50.9 Iron deficiency anemia, unspecified (principal); I25.10 Atherosclerotic heart disease of native coronary artery without angina pectoris
CPT/HCPCS: 82550; 85027; 82728; 83540; 83550; 84450; 84460

== ENCOUNTER → 2021-12-22 08:08 | Outpatient (BNVA) | payer MEDICARE, BC, SELFPAY | PROVIDERS: PCP Nurse Practitioner Family; Referring Provider Nurse Practitioner Family; Visit Provider Psychiatry & Neurology Neurology | DX: G20 Parkinson's disease (principal); G90.3 Multi-system degeneration of the autonomic nervous system; G31.84 Mild cognitive impairment of uncertain or unknown etiology; F41.9 Anxiety disorder, unspecified; G25.81 Restless legs syndrome; K59.01 Slow transit constipation | CPT/HCPCS: 99214 ==

== ENCOUNTER → 2022-02-25 14:10 | Outpatient (BNVA) | payer MEDICARE, BC, SELFPAY | PROVIDERS: PCP Nurse Practitioner Family; Referring Provider Nurse Practitioner Family; Visit Provider Internal Medicine Cardiovascular Disease | DX: E78.5 Hyperlipidemia, unspecified (principal); I25.10 Atherosclerotic heart disease of native coronary artery without angina pectoris; I73.9 Peripheral vascular disease, unspecified | CPT/HCPCS: 99214; 99213 ==

== ENCOUNTER 2022-03-09 20:59 | Outpatient (REF) | payer MEDICARE, BC, SELFPAY ==
[2022-03-09 20:13] LABS: Anion Gap 6.3 mmol/L (3-11); BUN 14 mg/dL (7-18); CO2 28.7 mmol/L (21.0-32.0); Calcium 8.6 mg/dL (8.5-10.1); Chloride 104 mmol/L (98-107); FREE T4 0.75 ng/dL (0.76-1.46); Glucose 95 mg/dL (74-106); Potassium 4.3 mmol/L (3.5-5.1); Sodium 139 mmol/L (136-145); TSH 3.59 uIU/mL (0.36-3.74)
== END 2022-03-09 21:00 | disposition home or self-care (01) ==
LOC: NCHCN 20:59
PROVIDERS: PCP Nurse Practitioner Family; Visit Provider Nurse Practitioner Family
DX: E03.9 Hypothyroidism, unspecified (principal); I73.9 Peripheral vascular disease, unspecified; I25.10 Atherosclerotic heart disease of native coronary artery without angina pectoris
CPT/HCPCS: 80048; 84439; 84443

== ENCOUNTER → 2022-03-30 10:38 | Outpatient (BNVA) | payer MEDICARE, BC, SELFPAY | PROVIDERS: PCP Nurse Practitioner Family; Referring Provider Nurse Practitioner Family; Visit Provider Psychiatry & Neurology Neurology | DX: G20 Parkinson's disease (principal); G90.3 Multi-system degeneration of the autonomic nervous system; R42 Dizziness and giddiness; G31.84 Mild cognitive impairment of uncertain or unknown etiology; F41.9 Anxiety disorder, unspecified; G25.81 Restless legs syndrome; K59.01 Slow transit constipation | CPT/HCPCS: 99215 ==

== ENCOUNTER 2022-04-02 01:00 | Outpatient (RCR) | payer MEDICARE, BC, SELFPAY ==
[2022-04-02] MEDS: IRON SUCROSE COMPLEX 200 MG in Normal Saline 100 ML 440 MG IVPB (13:12)
[2022-04-02] MEDS: Normal Saline Flush 10 ML SYR IVP (13:12)
== END 2022-04-29 23:59 | disposition home or self-care (01) ==
LOC: INF 01:00
PROVIDERS: PCP Nurse Practitioner Family; Visit Provider Psychiatry & Neurology Neurology
DX: D50.9 Iron deficiency anemia, unspecified (principal)
CPT/HCPCS: 96365; J1756

== ENCOUNTER → 2022-08-23 11:12 | Outpatient (BNVA) | payer MEDICARE, BC, SELFPAY | PROVIDERS: PCP Nurse Practitioner Family; Referring Provider Nurse Practitioner Family; Visit Provider Psychiatry & Neurology Neurology | DX: G20 Parkinson's disease (principal); I95.1 Orthostatic hypotension; G31.84 Mild cognitive impairment of uncertain or unknown etiology; F41.9 Anxiety disorder, unspecified; G25.81 Restless legs syndrome; K59.01 Slow transit constipation; R42 Dizziness and giddiness; G47.52 REM sleep behavior disorder | CPT/HCPCS: 99214 ==

== ENCOUNTER 2022-08-24 15:27 | Outpatient (REF) | payer MEDICARE, BC, SELFPAY ==
[2022-08-24 16:50] LABS: HCT 36.2 % (40.0-50.0); HGB 11.9 g/dL (13.5-17.5); MCH 30.1 pg (27.0-33.0); MCHC 32.9 % (32.0-36.0); MCV 91 fL (80-95); MPV 10.9 fL (8.0-11.0); Platelet Count 225 10^3/uL (130-400); RBC 3.96 10^6/uL (4.36-5.78); RDW 11.9 % (11.8-14.1); RDW-SD 40.2 fL; WBC 6.54 10^3/uL (4.4-10.8)
[2022-08-24 17:16] LABS: Iron 53 ug/dL (65-175); Total Iron Binding Capacity 336 ug/dL (250-450); Transferrin Sat 16 % (20-55)
[2022-08-24 17:25] LABS: ALT 17 U/L (16-63); AST 18 U/L (15-37); Ferritin 59 ng/mL (26-388); HDL Cholesterol 49 mg/dL (40-60); LDL CHOLESTEROL 74 mg/dL (<100)
[2022-08-24 17:52] LABS: Creatine Kinase 93 U/L (39-308)
[2022-08-26 11:47] LABS: Transferrin 243 mg/dL (201-352)
== END 2022-08-24 15:28 | disposition home or self-care (01) ==
LOC: NCHCN 15:27
PROVIDERS: PCP Nurse Practitioner Family; Visit Provider Nurse Practitioner Family
DX: I25.10 Atherosclerotic heart disease of native coronary artery without angina pectoris (principal); D50.9 Iron deficiency anemia, unspecified
CPT/HCPCS: 82550; 83721; 85027; 82728; 83540; 83550; 83718; 84450; 84460; 84466

== ENCOUNTER 2022-11-24 17:36 | Outpatient (REF) | payer MEDICARE, BC, SELFPAY ==
[2022-11-24 15:59] LABS: HCT 36.9 % (40.0-50.0); HGB 12.2 g/dL (13.5-17.5); MCH 30.7 pg (27.0-33.0); MCHC 33.1 % (32.0-36.0); MCV 93 fL (80-95); MPV 11.1 fL (8.0-11.0); Platelet Count 230 10^3/uL (130-400); RBC 3.98 10^6/uL (4.36-5.78); RDW-SD 41.1 fL; WBC 7.32 10^3/uL (4.4-10.8)
[2022-11-24 16:12] LABS: Iron 114 ug/dL (65-175); Total Iron Binding Capacity 371 ug/dL (250-450)
[2022-11-24 16:26] LABS: Ferritin 30 ng/mL (26-388)
== END 2022-11-24 17:37 | disposition home or self-care (01) ==
LOC: NCHCN 17:36
PROVIDERS: PCP Nurse Practitioner Family; Visit Provider Nurse Practitioner Family
DX: D50.9 Iron deficiency anemia, unspecified
CPT/HCPCS: 85027; 82728; 83540; 83550

== ENCOUNTER → 2023-03-01 12:17 | Outpatient (BNVA) | payer MEDICARE, BC, SELFPAY | PROVIDERS: PCP Nurse Practitioner Family; Visit Provider Psychiatry & Neurology Neurology | DX: G20 Parkinson's disease (principal); G90.3 Multi-system degeneration of the autonomic nervous system; G31.84 Mild cognitive impairment of uncertain or unknown etiology; F41.9 Anxiety disorder, unspecified; G25.81 Restless legs syndrome; K59.01 Slow transit constipation; R42 Dizziness and giddiness | CPT/HCPCS: 99214 ==

== ENCOUNTER 2023-04-05 12:55 | Outpatient (REF) | payer MEDICARE, BC, SELFPAY ==
[2023-04-05 16:40] LABS: Anion Gap 6.9 mmol/L (3-11); BUN 15 mg/dL (7-18); CO2 27.1 mmol/L (21.0-32.0); CREATININE 1.2 mg/dL (0.70-1.30); Calcium 9.1 mg/dL (8.5-10.1); Chloride 104 mmol/L (98-107); Estimated GFR 63.07 (mL/min/1.73m2); Glucose 73 mg/dL (74-106); Potassium 4.4 mmol/L (3.5-5.1); Sodium 138 mmol/L (136-145); TSH 3.62 uIU/mL (0.36-3.74)
== END 2023-04-05 12:56 | disposition home or self-care (01) ==
LOC: NCHCN 12:55
PROVIDERS: PCP Nurse Practitioner Family; Visit Provider Nurse Practitioner Family
DX: E03.9 Hypothyroidism, unspecified (principal); F41.8 Other specified anxiety disorders; F32.89 Other specified depressive episodes; R29.6 Repeated falls
CPT/HCPCS: 80048; 84443

== ENCOUNTER 2023-05-06 08:32 | Outpatient (CLI) | payer MEDICARE, BC, SELFPAY ==
--- NOTE | 2023-05-06 08:30 | RT.EKG_ITS ---
APPROVED REPORT Exam: Resting ECG Reason for Exam: CAD, Hx of NC Patient Location: O HR:56 bpm ECG Measurements Heart Rate 56 AXIS [place] 163 P 13 QRSd 89 QRS 2 QT 413 T 35 QTc 399 Conclusion Sinus rhythm...normal P axis, V-rate 50- 99 Normal Electrocardiogram
== END 2023-05-06 08:33 | disposition home or self-care (01) ==
LOC: DI.CARD 08:33
PROVIDERS: PCP Nurse Practitioner Family; Visit Provider Internal Medicine Cardiovascular Disease
DX: I25.2 Old myocardial infarction (principal); I25.10 Atherosclerotic heart disease of native coronary artery without angina pectoris
CPT/HCPCS: 93010

== ENCOUNTER → 2023-05-06 09:51 | Outpatient (BNVA) | payer MEDICARE, BC, SELFPAY | PROVIDERS: PCP Nurse Practitioner Family; Visit Provider Internal Medicine Cardiovascular Disease | DX: Z95.5 Presence of coronary angioplasty implant and graft (principal); I25.10 Atherosclerotic heart disease of native coronary artery without angina pectoris | CPT/HCPCS: 93005; 99213 ==

== ENCOUNTER 2023-05-10 19:13 | Outpatient (REF) | payer MEDICARE, BC, SELFPAY ==
[2023-05-10 22:05] LABS: Hemoglobin A1C 5.7 % (<5.7)
[2023-05-10 22:46] LABS: Ferritin 26 ng/mL (26-388); Glucose 109 mg/dL (74-106)
[2023-05-10 23:20] LABS: Creatine Kinase 78 U/L (39-308)
[2023-05-12 10:02] LABS: FREE T4 0.75 ng/dL (0.76-1.46)
== END 2023-05-10 19:14 | disposition home or self-care (01) ==
LOC: NCHCN 19:13
PROVIDERS: PCP Nurse Practitioner Family; Visit Provider Nurse Practitioner Family
DX: R53.83 Other fatigue (principal); E61.1 Iron deficiency; R42 Dizziness and giddiness; R73.09 Other abnormal glucose
CPT/HCPCS: 82550; 82947; 82728; 83036; 84439

== ENCOUNTER → 2023-07-05 14:29 | Outpatient (BNVA) | payer MEDICARE, BC, SELFPAY | PROVIDERS: PCP Nurse Practitioner Family; Visit Provider Psychiatry & Neurology Neurology | DX: G20 Parkinson's disease (principal); G90.3 Multi-system degeneration of the autonomic nervous system; G31.84 Mild cognitive impairment of uncertain or unknown etiology; F41.9 Anxiety disorder, unspecified; G25.81 Restless legs syndrome; K59.01 Slow transit constipation; R42 Dizziness and giddiness | CPT/HCPCS: 99215 ==

== ENCOUNTER 2023-07-11 13:54 | Outpatient (REF) | payer MEDICARE, BC, SELFPAY ==
[2023-07-11 16:18] LABS: TSH 2.96 uIU/mL (0.36-3.74)
== END 2023-07-11 13:55 | disposition home or self-care (01) ==
LOC: NCHCN 13:54
PROVIDERS: PCP Nurse Practitioner Family; Visit Provider Nurse Practitioner Family
DX: E03.9 Hypothyroidism, unspecified (principal)
CPT/HCPCS: 84439; 84443

== ENCOUNTER → 2023-09-07 11:04 | Outpatient (BNVA) | payer MEDICARE, BC, SELFPAY | PROVIDERS: PCP Nurse Practitioner Family; Referring Provider Nurse Practitioner Family; Visit Provider Psychiatry & Neurology Neurology | DX: G20.A1 Parkinson's disease without dyskinesia, without mention of fluctuations (principal); G90.3 Multi-system degeneration of the autonomic nervous system; G31.84 Mild cognitive impairment of uncertain or unknown etiology; F41.9 Anxiety disorder, unspecified; G25.81 Restless legs syndrome; K59.01 Slow transit constipation; R42 Dizziness and giddiness; R29.6 Repeated falls | CPT/HCPCS: 99214 ==

== ENCOUNTER → 2024-02-08 09:48 | Outpatient (BNVA) | payer MEDICARE, BC, SELFPAY | PROVIDERS: PCP Nurse Practitioner Family; Referring Provider Nurse Practitioner Family; Visit Provider Psychiatry & Neurology Neurology | DX: G90.3 Multi-system degeneration of the autonomic nervous system (principal); G31.84 Mild cognitive impairment of uncertain or unknown etiology; F41.9 Anxiety disorder, unspecified; G25.81 Restless legs syndrome; K59.01 Slow transit constipation; R42 Dizziness and giddiness; R29.6 Repeated falls | CPT/HCPCS: 99214 ==

== ENCOUNTER 2024-03-22 09:21 | Outpatient (CLI) | payer MEDICARE, BC, SELFPAY ==
[2024-03-22 09:31] VITALS: BP 119/65; PULSE 54; RESP 20; TEMP 36.6; O2SAT 97
[2024-03-22 10:06] VITALS: BP 130/73; PULSE 60; RESP 24; O2SAT 97
[2024-03-22] MEDS: Omnipaque 240 MG/ML 50 ML BTL IJ (10:07)
[2024-03-22] MEDS: Nerve Block Tray 1 EACH MC (10:07)
[2024-03-22] MEDS: methylPREDNISolone ACETATE 80 MG/ML VIAL IJ (10:08)
--- NOTE | 2024-03-22 10:08 | PDOC.PAIN ---
Date of service: 03/22/24 Time of Service: 10:08 Pain Managment Procedure Note Procedure Note Procedure Note: PROCEDURE NOTE CAUDAL EPIDURAL STEROID INJECTION Date of Service: March 22, 2024 Patient:Dayne March? Provider:? Catalino Clements DO, MPH Dayne Gomes has been referred to the [facility] for caudal epidural steroid injection.? Pre-operative diagnosis: Lumbosacral Radiculopathy Post-operative diagnosis: Same Pre-Procedure Pain: VAS= 7/10. COMMENTS: I previously evaluated him in the office. His symptoms are unchanged. Judahwas interviewed and the medical record was reviewed.? There were no medical, pharmacologic, radiographic or other structural contraindications to attempting fluoroscopically guided epidural steroid injection.? Risks and expected side effects as well as potential benefit of the procedure were reviewed with Judah, and the patient's voiced concerns were addressed.? The printed consent form was signed.? Standard time-out procedure was performed. Judah was placed in the prone position on the fluoroscopy table and automated blood pressure cuff and pulse oximeter applied.? The skin entry point for entering/approaching the epidural space by a caudal approach through the sacral hiatus ed identified with surgical skin marking.? Following thorough chlorhexidine preparation of the skin and draping and 1% lidocaine infiltration of the skin entry point and subcutaneous tissues, a 17 gauge Touhy needle was placed under fluoroscopic guidance? into the epidural space. Needle tip placement and depth were aided and confirmed by fluoroscopy in the lateral and AP position. There was no paresthesia or return of blood or CSF through the needle. 1 cc of Omnipaque 240 was injected with clear epidural spread confirmed with fluoroscopy. An Arrow 19G radio-opaque epidural catheter was advanced into the epidural space to the L5-S1 level and 2 cc of Omnipaque 240 was injected with clear epidural spread. 80 mg of Depo-Medrol was? injected. There was no unusual discomfort expressed by Dayne. The needle and catheter were then flushed with 1 cc of 1% Lidocaine and they were removed together without difficulty (49 cc of Omnipaque was wasted). Dayne was observed and was without hemodynamic, neurologic, or allergic reactions.? Fluoroscopic images were digitally archived. Dayne's vital signs were stable throughout the procedure and were as recorded in the docflowsheet by the nursing staff.? If given, dosages of intravenous drugs for anxiolysis and analgesia were documented in MAR. Follow up plans and appointments were discussed with Dayne.? Post procedure instruction was given as documented in nursing documentation and having met discharge criteria, [facility] ? COMMENTS: No apparent complications.? Post-procedure pain: VAS= 2/10. If the patient receives at least 50% improvement in pain and/or function for at least 3 months, this procedure can be repeated. I personally completed the entire procedure. CATALINO CLEMENTS DO, MPH ABPM&R - Subspecialty board certification in Pain Medicine [facility] [facility]
--- NOTE | 2024-03-22 10:09 | DI.RAD_ITS ---
Exam(s) XR PAIN CLINIC LUMBAR SP 2V EXAM: XR PAIN CLINIC LUMBAR SP 2V CLINICAL HISTORY: DX: Lumbar Radiculopathy TECHNIQUE: 2D and realtime digital imaging was performed. Radiologist not present. CONTRAST MATERIAL: None. COMPARISON: No exams were available for comparison FINDINGS: Fluoroscopy was provided for pain management therapy. Please refer to procedure report or details. Radiation Exposure Index: Ka,r=18.90 mGy IMPRESSION: As above. RADIATION DOSE DELIVERED:
== END 2024-03-22 09:22 | disposition home or self-care (01) ==
LOC: PC 09:21
PROVIDERS: PCP Nurse Practitioner Family; Visit Provider Preventive Medicine Occupational Medicine
DX: M54.17 Radiculopathy, lumbosacral region (principal); M54.50 Low back pain, unspecified
CPT/HCPCS: 62323; 72100; J1010; Q9967

== ENCOUNTER → 2024-04-27 09:49 | Outpatient (BNVA) | payer MEDICARE, BC, SELFPAY | PROVIDERS: PCP Family Medicine; Referring Provider Nurse Practitioner Family; Visit Provider Internal Medicine Cardiovascular Disease | DX: I25.10 Atherosclerotic heart disease of native coronary artery without angina pectoris (principal); I25.2 Old myocardial infarction | CPT/HCPCS: 99213 ==

== ENCOUNTER 2024-04-27 13:42 | Outpatient (REF) | payer MEDICARE, BC, SELFPAY ==
[2024-04-27 16:11] LABS: HCT 35.8 % (40.0-50.0); HGB 11.8 g/dL (13.5-17.5); MCH 31.1 pg (27.0-33.0); MCV 94 fL (80-95); MPV 10.7 fL (8.0-11.0); Platelet Count 211 10^3/uL (130-400); RDW 12.1 % (11.8-14.1); RDW-SD 41.8 fL; WBC 6.12 10^3/uL (4.4-10.8)
[2024-04-27 16:31] LABS: Hemoglobin A1C 5.7 % (<5.7)
[2024-04-27 16:42] LABS: ALT 16 U/L (16-63); AST 23 U/L (15-37); Alkaline Phosphatase 123 U/L (46-116); Anion Gap 8.5 mmol/L (3-11); BUN 21 mg/dL (7-18); Bilirubin, Total 0.46 mg/dL (0.2-1.0); CO2 29.5 mmol/L (21.0-32.0); Calcium 9.1 mg/dL (8.5-10.1); Chloride 103 mmol/L (98-107); Glucose 95 mg/dL (74-106); Potassium 4.4 mmol/L (3.5-5.1); Sodium 141 mmol/L (136-145); TSH (W/Ref FT4) 3.58 uIU/mL (0.36-3.74); Total Protein 6.9 g/dL (6.4-8.2); Vitamin B12 200 pg/mL (193-986)
[2024-04-27 23:19] LABS: PSA, Screening 3.1 ng/mL (<=6.5)
== END 2024-04-27 13:43 | disposition home or self-care (01) ==
LOC: NCHCN 13:42
PROVIDERS: PCP Family Medicine; Visit Provider Family Medicine
DX: E03.9 Hypothyroidism, unspecified (principal); R73.03 Prediabetes; D50.9 Iron deficiency anemia, unspecified; R26.89 Other abnormalities of gait and mobility; R41.9 Unspecified symptoms and signs involving cognitive functions and awareness; N40.1 Benign prostatic hyperplasia with lower urinary tract symptoms; Z12.5 Encounter for screening for malignant neoplasm of prostate
CPT/HCPCS: 80053; 84153; 85027; 82607; 83036; 84443

== ENCOUNTER 2024-07-09 10:46 | Outpatient (CLI) | payer MEDICARE, BC, SELFPAY ==
--- NOTE | 2024-07-09 07:00 | DI.RAD_ITS ---
Exam(s) XR PAIN CLINIC LUMBAR SP 2V EXAM: XR PAIN CLINIC LUMBAR SP 2V CLINICAL HISTORY: DX: Lumbar Radiculopathy. TECHNIQUE: Fluoroscopy was provided for the referring physician for guidance with performing pain cl inic injection procedure. COMPARISON: No exams were available for comparison FINDINGS: Please see procedure note for details. Fluoro time: 14.8 seconds RADIATION DOSE DELIVERED: Ka,r=3.01 mGy
[2024-07-09 10:58] VITALS: BP 132/62; PULSE 55; RESP 20; TEMP 36.6; O2SAT 94
--- NOTE | 2024-07-09 11:07 | PDOC.PAIN ---
Date of service: 07/09/24 Time of Service: 11:33 Pain Managment Procedure Note Procedure Note Procedure Note: Caudal Epidural Steroid Injection ? Location: Caudal Epidural Space ?Pre-procedure Diagnosis: M54.17-Radiculopathy, lumbosacral region M96.1 Postlaminectomy syndrome, not elsewhere classified ? Post-procedure Diagnosis:? The same as above ? Sedation:? none? Estimated blood loss:? less than 2 cc ?Surgeon:? Cecil Jeffery MD COMMENT: Pt had 3-4 months relief from previous Caudal. s/p 3 spine surgeries with foraminal stenosis at R L4 and L5 ? Procedure Detail:?? The procedure and potential risks were explained to the patient and informed written consent was obtained. The patient was escorted to the procedure room and placed in the prone position. Pillows were utilized for proper positioning and comfort. Time out was performed in the procedure room with nursing staff confirming the patient's identity, procedure to be performed, allergies, and any blood thinning or anti-platelet medications. The patient's lower back/coccyx area was prepped with ChloraPrep x2 and draped in a sterile fashion. Sterile technique was maintained throughout the procedure.? Sterile gloves were used, a face mask was worn, and new single dose vials of all medications were used with the top being swabbed with alcohol and given time to dry prior to withdrawal of medication. Subcutaneous 1% lidocaine was instilled into the superficial soft tissue of the patient's lower back/coccyx area for local anesthesia using a 25-gauge 1.5 inch needle. Under fluoroscopic guidance a 17G Tuohy needle was placed within the caudal canal. An 19 G Arrow catheter was directed cephalad to the RIGHT at L5. 1cc of Omnipaque 240 contrast was injected showing appropriate spread in the caudal epidural space.? Placement was confirmed in AP and lateral projection. 80 mg of Depo-Medrol and 3 ml saline was injected without complication. The needle and catheter was removed intact. The patient tolerated the procedure well and was transported to the recovery area for observation and discharge instructions. Permanent images saved and recorded. Plan:? Follow prn. COMMENT: WOULD REPEAT PRN. CONSIDER R L4 AND L5 TFESI IF NOT BETTER
[2024-07-09 11:19] VITALS: O2SAT 98
[2024-07-09 11:20] VITALS: O2SAT 97
[2024-07-09] MEDS: Normal Saline 20 ML VIAL (11:36)
[2024-07-09] MEDS: methylPREDNISolone ACETATE 40 MG/ML VIAL IJ (11:37)
[2024-07-09] MEDS: Nerve Block Tray 1 EACH MC (11:37)
[2024-07-09] MEDS: Omnipaque 240 MG/ML 50 ML BTL IJ (11:38)
== END 2024-07-09 10:47 | disposition home or self-care (01) ==
LOC: PC 10:46
PROVIDERS: PCP Family Medicine; Visit Provider Anesthesiology Pain Medicine
DX: M54.50 Low back pain, unspecified (principal); M54.17 Radiculopathy, lumbosacral region; M96.1 Postlaminectomy syndrome, not elsewhere classified
CPT/HCPCS: 00123; 62323; 72100; J1010; Q9967

== ENCOUNTER → 2024-07-11 12:18 | Outpatient (BNVA) | payer MEDICARE, BC, SELFPAY | PROVIDERS: PCP Family Medicine; Visit Provider Psychiatry & Neurology Neurology | DX: G20.C Parkinsonism, unspecified (principal); E61.1 Iron deficiency; R42 Dizziness and giddiness; R29.6 Repeated falls | CPT/HCPCS: 99215 ==

== ENCOUNTER 2024-12-10 10:45 | Outpatient (CLI) | payer MEDICARE, BC, SELFPAY ==
--- NOTE | 2024-12-10 06:00 | DI.RAD_ITS ---
Exam(s) XR PAIN CLINIC LUMBAR SP 2V EXAM: XR PAIN CLINIC LUMBAR SP 2V CLINICAL HISTORY: DX: Lumbar Radiculopathy. TECHNIQUE: Fluoroscopy was provided for the referring physician for guidance with performing pain cl inic injection procedure. COMPARISON: No exams were available for comparison FINDINGS: Please see procedure note for details. Fluoro time: 25.9 seconds RADIATION DOSE DELIVERED: Ka,r=5.56 mGy
[2024-12-10 10:54] VITALS: BP 105/51; PULSE 61; RESP 20; TEMP 36.6; O2SAT 98
--- NOTE | 2024-12-10 11:05 | PDOC.PAIN ---
Date of service: 12/10/24 Time of Service: 11:29 Pain Managment Procedure Note Procedure Note Procedure Note: Caudal Epidural Steroid Injection ? Location: Caudal Epidural Space ?Pre-procedure Diagnosis: M54.17-Radiculopathy, lumbosacral region M96.1 Postlaminectomy syndrome, not elsewhere classified ? Post-procedure Diagnosis:? The same as above ? Sedation:? none? Estimated blood loss:? less than 2 cc ?Surgeon:? Cecil Jeffery MD ? Procedure Detail:?? The procedure and potential risks were explained to the patient and informed written consent was obtained. The patient was escorted to the procedure room and placed in the prone position. Pillows were utilized for proper positioning and comfort. Time out was performed in the procedure room with nursing staff confirming the patient's identity, procedure to be performed, allergies, and any blood thinning or anti-platelet medications. The patient's lower back/coccyx area was prepped with ChloraPrep x2 and draped in a sterile fashion. Sterile technique was maintained throughout the procedure.? Sterile gloves were used, a face mask was worn, and new single dose vials of all medications were used with the top being swabbed with alcohol and given time to dry prior to withdrawal of medication. Subcutaneous 1% lidocaine was instilled into the superficial soft tissue of the patient's lower back/coccyx area for local anesthesia using a 25-gauge 1.5 inch needle. Under fluoroscopic guidance a 17G Tuohy needle was placed within the caudal canal. An 19 G Arrow catheter was directed cephalad to the RIGHT at L5. 1cc of Omnipaque 240 contrast was injected showing appropriate spread in the caudal epidural space.? Placement was confirmed in AP and lateral projection. 80 mg of Depo-Medrol and 3 ml saline was injected without complication. The needle and catheter was removed intact. The patient tolerated the procedure well and was transported to the recovery area for observation and discharge instructions. Permanent images saved and recorded. Plan:? Follow prn. PAIN: PRE-PROCEDURE /10 POST-PROCEDURE [ ]/10 COMMENT: Since the epidurals are not lasting as long as they previously had will get updated MRI lumbar spine. His last lumbar MRI was in 2020. Would consider different approach possibly transforaminal at L4-L5
[2024-12-10 11:27] VITALS: PULSE 62; O2SAT 97
[2024-12-10] MEDS: Omnipaque 240 MG/ML 50 ML BTL IJ (11:34)
[2024-12-10] MEDS: Nerve Block Tray 1 EACH MC (11:34)
[2024-12-10] MEDS: methylPREDNISolone ACETATE 40 MG/ML VIAL IJ (11:34)
[2024-12-10] MEDS: Normal Saline 20 ML VIAL 10 ML IJ (11:34)
== END 2024-12-10 10:46 | disposition home or self-care (01) ==
LOC: PC 10:45
PROVIDERS: PCP Family Medicine; Visit Provider Anesthesiology Pain Medicine
DX: M54.50 Low back pain, unspecified (principal); M54.17 Radiculopathy, lumbosacral region; M96.1 Postlaminectomy syndrome, not elsewhere classified
CPT/HCPCS: 00123; 62323; 72100; J1010; Q9967

== ENCOUNTER → 2024-12-17 14:07 | Outpatient (BNVA) | payer MEDICARE, BC, SELFPAY | PROVIDERS: PCP Family Medicine; Visit Provider Psychiatry & Neurology Neurology | DX: G20.C Parkinsonism, unspecified (principal) | CPT/HCPCS: 99214 ==

== ENCOUNTER 2025-01-04 00:21 | Outpatient (CLI) | payer MEDICARE, BC, SELFPAY ==
--- NOTE | 2025-01-04 07:30 | DI.MRI_ITS ---
Exam(s) MR LUMBAR SPINE WO EXAM: MR LUMBAR SPINE WO CLINICAL HISTORY: pain to RLE,LUMBOSACRIAL RADICULOPATHY,M54.17. TECHNIQUE: Multiplanar multisequence MRI of the Lumbar spine was performed. COMPARISON: CR,XR XR LUMBAR SPINE AP, LAT from 02/08/2021 MR MR LUMBAR SPINE WO from 10/26/2021 FINDINGS: Conus medullaris is at normal level. There is no evidence of conus mass nor subjacent clumping of in trathecal nerve roots to suggest arachnoiditis. The distal thecal sac appears unremarkable.There is no evidence of Tarlov intrasacral cysts nor other significant findings within the sacral canal Bones:There are no acute fractures nor ominous osseous lesions in the lumbar vertebral bodies and vis ualized sacrum. However, there is Schmorl's node invagination in the superior endplate of T11 now ev ident which was not evident on the September 2021 MRI study. There is no bone edema in the T11 verteb ral body to suggest that this is acute. With respect to the individual levels... T12-L1: Unremarkable L1-2: Relatively preserved disc height. Posteriorly there is minimal retrolisthesis of L1 upon L2. There is symmetrical posterior annular bulging again noted but no dominant disc herniation and centra l canal dimensions are lower normal. There is no significant narrowing of the exiting neural foramin a. This level appears similar to previous. Mild facet joint degenerative changes again noted. L2-3: This level exhibits mild-moderate relatively uniform disc space narrowing. There is mild symme trical annular bulging noted. Central canal dimensions are lower normal for this age group. There i s no new significant disc herniation. There are mild degenerative changes in the facet joints. No s ignificant narrowing of the exiting right neural foramen. On the left side there is some annular bul ging in the floor of the exiting neural foramen but without tight foraminal stenosis on the left side at this level. The previously described small disc fragment at this level has significantly decreas ed in size, almost resolved. L3-4: Mild decreased disc height, unchanged. No listhesis. Mild broad annular bulging without a dom inant disc herniation. The annular bulging extends into the floor of the exiting left neural foramen , similar to previous. There is mild left-sided foraminal stenosis. There is no foraminal stenosis on the right side. Some degenerative change in the facet joints again noted. L4-5: Moderate disc space narrowing. Posteriorly there is mild anterolisthesis of L4 upon L5 related to facet arthropathy. There is mild central canal stenosis. Asymmetric protrusion the right-side o f the annulus with small disc protrusion again noted, similar to previous. There is moderate narrowi ng of the exiting right neural foramen again noted and milder narrowing of the exiting left neural fo ramen. L5-S1: This level exhibits chronic advanced disc space narrowing and anterior osseous lipping. Poste riorly there is mild annular bulging with no significant disc herniation. No significant central can al stenosis. However on the right side there is vertical foraminal stenosis compression of the exiti ng nerve root between the overlying right L5 pedicle and the subjacent annular bulging, similar to pr evious. A lesser amount of narrowing of the exiting opposite-left neural foramen is noted. Soft tissues: paraspinal soft tissues appear unremarkable. IMPRESSION: 1. Multilevel findings as above. Compared to the prior MRI scan 10/26/2021 there is slight increase in amount of central canal stenosis at L4-5 level (mild). The previously described disc protrusion a t the L 2-3 level has significantly decreased in size. 2. Other findings as above. 3. There has been interval mild height loss of the superior endplate of T11 which Schmorl's node inva gination at this level also noted. However, there is no bone edema in the T11 vertebral body indicat ing of this finding is not acute or subacute. DATA REPOSITORY:
== END 2025-01-04 00:41 ==
LOC: DI 00:21
PROVIDERS: PCP Family Medicine; Visit Provider Anesthesiology Pain Medicine
DX: M54.17 Radiculopathy, lumbosacral region (principal)
CPT/HCPCS: 72148

== ENCOUNTER 2025-01-25 00:48 | Outpatient (CLI) | payer MEDICARE, BC, SELFPAY ==
--- NOTE | 2025-01-25 | DI.CT_ITS ---
Exam(s) CT HEAD WO EXAM: CT HEAD WO CLINICAL HISTORY: CLOSED INJURY OF HEAD,S09.90XD,NEW PHOTOPHOBIA,PROGRESSIVE BALANCE ISSUES. TECHNIQUE: Imaging Protocol: Axial computed tomography images with coronal and sagittal reformatted images were created and reviewed COMPARISON: No exams were available for comparison FINDINGS: There are no skull fractures. There is no fluid in the visualized paranasal sinuses. There is no evidence of intracranial hemorrhage, mass effect, or shift of midline structures. There are no extra-axial fluid collections. The ventricles are not enlarged or shifted and there is no blo od within the ventricular system nor within the basal cisterns. Heavy calcification is noted in both vertebral arteries at the skull base as well as within the intra cavernous aspects of both internal carotid arteries. IMPRESSION: No acute intracranial findings on this noninfused CT scan of the brain. Heavy vascular calcification at the skull base noted indicating atherosclerotic involvement. RADIATION DOSE DELIVERED: 896.85mGy.cm Total DLP DATA REPOSITORY: All CT scans at this facility are submitted to the National Radiology Data Registry (NRDR) Dose Index Registry (DIR) with the [employer] (A[employer]). RADIATION OPTIMIZATION: All CT scans at this facility use at least one of these dose optimization te chniques: automated exposure control; mA and/or kV adjustment per patient size (includes targeted exa ms where dose is matched to clinical indication); or iterative reconstruction.
== END 2025-01-25 01:08 ==
LOC: DI 00:48
PROVIDERS: PCP Family Medicine; Visit Provider Family Medicine
DX: I70.8 Atherosclerosis of other arteries (principal); S09.90XD Unspecified injury of head, subsequent encounter; X58.XXXD Exposure to other specified factors, subsequent encounter
CPT/HCPCS: 70450

== ENCOUNTER → 2025-02-12 12:59 | Outpatient (BNVA) | payer MEDICARE, BC, SELFPAY | PROVIDERS: PCP Family Medicine; Referring Provider Family Medicine; Visit Provider Nurse Practitioner Gerontology | DX: N40.1 Benign prostatic hyperplasia with lower urinary tract symptoms (principal); N13.8 Other obstructive and reflux uropathy; R33.9 Retention of urine, unspecified; R39.9 Unspecified symptoms and signs involving the genitourinary system; I10 Essential (primary) hypertension; G20.C Parkinsonism, unspecified | CPT/HCPCS: 51798; 81003; 99215 ==

== ENCOUNTER 2025-02-13 09:42 | Outpatient (CLI) | payer MEDICARE, BC, SELFPAY ==
--- NOTE | 2025-02-13 09:55 | PDOC.PAIN_ITS ---
Date of service: 02/13/25 Time of Service: 10:44 Pain Managment Procedure Note Procedure Note Procedure Note: Lumbar Transforaminal Epidural Steroid Injection ? Location: RIGHT L4-5 and L5-S1 ? Pre-procedure Diagnosis: M54.17-Radiculopathy, lumbosacral region M54.16 Radiculopathy, lumbar region ? Post-procedure Diagnosis:? The same as above ? Sedation:? none ? Estimated blood loss:? less than 2 cc ? Surgeon:? Cecil Jeffery MD COMMENT: Right foraminal stenosis at L4-5 and L5-S1 ? Procedure Detail:?? The procedure and potential risks were explained to the patient and informed written consent was obtained. The patient was escorted to the procedure room and placed in the prone position. Pillows were utilized for proper positioning and comfort. Time out was performed in the procedure room with nursing staff confirming the patient's identity, procedure to be performed, allergies, and any blood thinning or anti-platelet medications. The patient's lower back was prepped with ChloraPrep and draped in a sterile fashion. Sterile gloves were used, a face mask was worn, and new single dose vials of all medications were used with the top being swabbed with alcohol and given time to dry prior to withdrawal of medication. A right-sided oblique fluoroscopic view was obtained, with visualization of L4-5. Lidocaine 1% was used to anesthetize the skin. The tip of a 22-gauge, Quincke needle was advanced toward the 6 o'clock position of the superior pedicle at the target level.? It was advanced just under the pedicle to the neural foramen L4-5. Correct needle placement was confirmed through review of the fluoroscopy. Next, following negative aspiration, 1cc's of Omnipaque 240 contrast was injected under live fluoroscopy which showed good flow throughout the epidural space and no evidence of vascular flow or flow into adjacent compartments. Next, following negative aspiration, 40mg Depo-Medrol and 0.5ml of 0.5% bupivacaine was injected. The needle was gently removed.? The procedure was also performed in the same fashion at Right L5-S1.? The patient tolerated the procedure well.? Permanent images saved and recorded. Plan:? Follow up prn PAIN: PRE PROCEDURE 210 POST PROCEDURE 010 COMMENT: repeat as needed if pt get relief [employer]. Coding Conscious Sedation used for procedure: No CPT Codes: Transforaminal Lumbar/Sacral (includes fluoro) - 47693 ([id number] ~G) Transforaminal Lumbar/Sacral (includes Fluoro) each add'l - [id number] ([id number] ~G) Additional Codes: Date of Service (33770) Date of service: 02/13/25
[2025-02-13 10:02] VITALS: BP 103/64; PULSE 57; RESP 18; TEMP 36.6; O2SAT 97
[2025-02-13 10:23] VITALS: PULSE 56; O2SAT 97
[2025-02-13 10:30] VITALS: PULSE 65; O2SAT 95
--- NOTE | 2025-02-13 10:42 | DI.RAD_ITS ---
Exam(s) XR PAIN CLINIC LUMBAR SP 2V EXAM: XR PAIN CLINIC LUMBAR SP 2V CLINICAL HISTORY: Dx: Lumbar Radiculopathy. TECHNIQUE: Fluoroscopy was provided for the referring physician for guidance with performing pain cl inic injection procedure. COMPARISON: No exams were available for comparison FINDINGS: Please see procedure note for details. Fluoro time: 34.1 seconds RADIATION DOSE DELIVERED: Ka,r=9.0 mGy
[2025-02-13] MEDS: Bupivacaine 0.5% Pres-Free 10 ML VIAL IJ (10:44)
[2025-02-13] MEDS: methylPREDNISolone ACETATE 40 MG/ML VIAL IJ (10:44)
[2025-02-13] MEDS: Omnipaque 240 MG/ML 50 ML BTL IJ (10:44)
[2025-02-13] MEDS: Nerve Block Tray 1 EACH MC (10:44)
== END 2025-02-13 09:43 | disposition home or self-care (01) ==
LOC: PC 09:43
PROVIDERS: PCP Family Medicine; Visit Provider Anesthesiology Pain Medicine
DX: M54.17 Radiculopathy, lumbosacral region (principal); M54.50 Low back pain, unspecified; M54.16 Radiculopathy, lumbar region
CPT/HCPCS: 64483; 64484; 72100; J0665; J1010; Q9967

== ENCOUNTER 2025-04-11 19:11 | Outpatient (REF) | payer MEDICARE, BC, SELFPAY ==
[2025-04-11 19:19] LABS: Abs Immature Grans 0.01 10^3/uL (0.0-0.06); Absolute Basophil Count 0.04 10^3/uL (0.0-0.2); Absolute Eosinophil Count 0.06 10^3/uL (0.0-0.7); Absolute Lymphocyte Count 1.08 10^3/uL (1.2-3.4); Absolute Monocyte Count 0.46 10^3/uL (0.1-0.8); Absolute Neutrophil Count 4.74 10^3/uL (1.2-6.7); Basophils % 0.6 %; Eosinophils % 0.9 %; HCT 34.6 % (40.0-50.0); HGB 11.4 g/dL (13.5-17.5); Immature Grans % 0.2 %; Lymphocytes % 16.9 %; MCH 31.2 pg (27.0-33.0); MCHC 32.9 % (32.0-36.0); MCV 95 fL (80-95); MPV 10.5 fL (8.0-11.0); Monocytes % 7.2 %; Neutrophils % 74.2 %; Platelet Count 218 10^3/uL (130-400); RBC 3.65 10^6/uL (4.36-5.78); RDW 12.2 % (11.8-14.1); RDW-SD 42.8 fL; WBC 6.39 10^3/uL (4.4-10.8)
[2025-04-11 19:27] LABS: Iron 58 ug/dL (65-175); Total Iron Binding Capacity 323 ug/dL (250-450); Transferrin Sat 18 % (20-55)
[2025-04-11 19:37] LABS: ALT 16 U/L (16-63); AST 22 U/L (15-37); Alkaline Phosphatase 124 U/L (46-116); Anion Gap 6.9 mmol/L (3-11); BUN 22 mg/dL (7-18); Bilirubin, Total 0.6 mg/dL (0.2-1.0); CO2 29.1 mmol/L (21.0-32.0); CREATININE 1.1 mg/dL (0.70-1.30); Calcium 8.6 mg/dL (8.5-10.1); Chloride 104 mmol/L (98-107); Estimated GFR 69.14 (mL/min/1.73m2); FREE T4 0.82 ng/dL (0.76-1.46); Glucose 99 mg/dL (74-106); Sodium 140 mmol/L (136-145); TSH 1.29 uIU/mL (0.36-3.74); Total Protein 6.9 g/dL (6.4-8.2)
[2025-04-11 19:58] LABS: Hemoglobin A1C 5.7 % (<5.7)
[2025-04-11 20:14] LABS: Calculated LDL 68 mg/dL (<100); Cholesterol 149 mg/dL (<200); HDL Cholesterol 58 mg/dL (>or=40); Triglyceride 115 mg/dL (<150); Vitamin B12 1095 pg/mL (193-986)
[2025-04-12 00:04] LABS: Folate 13.5 ng/mL (8.6-20.0)
[2025-04-12 18:57] LABS: PSA, Screening 1.3 ng/mL (<=6.5)
== END 2025-04-11 19:12 | disposition home or self-care (01) ==
LOC: NCHCN 19:11
PROVIDERS: PCP Family Medicine; Visit Provider Family Medicine
DX: E03.9 Hypothyroidism, unspecified (principal); Z86.2 Personal history of diseases of the blood and blood-forming organs and certain disorders involving the immune mechanism; R73.03 Prediabetes; Z00.00 Encounter for general adult medical examination without abnormal findings
CPT/HCPCS: 80053; 80061; 84153; 82607; 82746; 83036; 83540; 83550; 84439; 84443; 85025

== ENCOUNTER → 2025-04-17 10:27 | Outpatient (BNVA) | payer MEDICARE, BC, SELFPAY | PROVIDERS: PCP Family Medicine; Referring Provider Family Medicine; Visit Provider Psychiatry & Neurology Neurology | DX: G20.C Parkinsonism, unspecified (principal); G90.3 Multi-system degeneration of the autonomic nervous system; G31.84 Mild cognitive impairment of uncertain or unknown etiology; F41.9 Anxiety disorder, unspecified; G25.81 Restless legs syndrome; K59.01 Slow transit constipation; R42 Dizziness and giddiness; R29.6 Repeated falls; E61.1 Iron deficiency | CPT/HCPCS: 99215 ==

== ENCOUNTER 2025-05-02 08:10 | Outpatient (CLI) | payer MEDICARE, BC, SELFPAY ==
--- NOTE | 2025-05-02 08:00 | RT.EKG_ITS ---
APPROVED REPORT Exam: Resting ECG Reason for Exam: CAD Patient Location: O HR:57 bpm ECG Measurements Heart Rate 57 AXIS [place] 143 P 63 QRSd 91 QRS 43 QT 413 T 58 QTc 402 Conclusion Sinus rhythm...normal P axis, V-rate 50- 99 Probable left atrial enlargement...P >50mS, <-0.10mV V1 Otherwise normal ECG
== END 2025-05-02 08:11 | disposition home or self-care (01) ==
LOC: DI.CARD 08:11
PROVIDERS: PCP Family Medicine; Visit Provider Internal Medicine Cardiovascular Disease
DX: I25.10 Atherosclerotic heart disease of native coronary artery without angina pectoris (principal); I51.7 Cardiomegaly
CPT/HCPCS: 93010

== ENCOUNTER → 2025-05-02 13:33 | Outpatient (BNVA) | payer MEDICARE, BC, SELFPAY | PROVIDERS: PCP Family Medicine; Referring Provider Family Medicine; Visit Provider Internal Medicine Cardiovascular Disease | DX: I25.10 Atherosclerotic heart disease of native coronary artery without angina pectoris (principal); G20.C Parkinsonism, unspecified; I95.1 Orthostatic hypotension | CPT/HCPCS: 99214; 93005 ==

== ENCOUNTER → 2025-05-20 15:10 | Outpatient (BNVA) | payer MEDICARE, BC, SELFPAY | PROVIDERS: PCP Family Medicine; Referring Provider Family Medicine; Visit Provider Nurse Practitioner Gerontology | DX: N40.1 Benign prostatic hyperplasia with lower urinary tract symptoms (principal); N13.8 Other obstructive and reflux uropathy; R33.9 Retention of urine, unspecified | CPT/HCPCS: 99213; 51798 ==

== ENCOUNTER → 2025-06-24 12:51 | Outpatient (BNVA) | payer MEDICARE, BC, SELFPAY | PROVIDERS: PCP Family Medicine; Referring Provider Family Medicine; Visit Provider Psychiatry & Neurology Neurology | DX: G20.C Parkinsonism, unspecified (principal); G90.3 Multi-system degeneration of the autonomic nervous system; G31.84 Mild cognitive impairment of uncertain or unknown etiology; F41.9 Anxiety disorder, unspecified; G25.81 Restless legs syndrome; K59.01 Slow transit constipation; R42 Dizziness and giddiness; R29.6 Repeated falls; E61.1 Iron deficiency | CPT/HCPCS: 99214 ==

== ENCOUNTER → 2025-09-02 13:12 | Outpatient (BNVA) | payer MEDICARE, BC, SELFPAY | PROVIDERS: PCP Family Medicine; Referring Provider Family Medicine; Visit Provider Psychiatry & Neurology Neurology | DX: G20.C Parkinsonism, unspecified (principal); G90.3 Multi-system degeneration of the autonomic nervous system; G31.84 Mild cognitive impairment of uncertain or unknown etiology; F41.9 Anxiety disorder, unspecified; G25.81 Restless legs syndrome; K59.01 Slow transit constipation; R42 Dizziness and giddiness; R29.6 Repeated falls; E61.1 Iron deficiency | CPT/HCPCS: 99214 ==